=== PATIENT | female | born 1945 | race Hispanic/Latino ===

== ENCOUNTER 2022-05-26 10:26 | Inpatient (IN) | payer MEDICARE, OTHER ==
[2022-05-26] MEDS ORDERED: LACTATED RINGERS 500 ML IV ONE (11:43)
[2022-05-26] MEDS ORDERED: LIDOCAINE (1%) 10 MG/1 ML VIAL 20 ML MDV INFILTRATI ONE (11:43)
[2022-05-26] MEDS ORDERED: TETANUS,DIPH,PERTUSS(ACELL) VACCINE 0.5 ML SYRINGE IM ONE (11:46)
--- NOTE | 2022-05-26 11:46 | Emergency Department Report ---
ED General Adult HPI - General Chief complaint: Weakness Stated complaint: FALL/HEAD INJURY/WEAKNESS Time Seen by Provider: 05/26/22 11:42 Source: patient, family, EMS (Verbal report received from emergency medical services. EMS documentation not available at time of chart dictation ), RN notes reviewed Mode of arrival: Stretcher Limitations: Physical Limitation - History of Present Illness Initial comments: The patient was evaluated in the emergency department for symptoms described in the history of present illness. He/she was evaluated in the context of the global COVID-19 pandemic, which necessitated consideration that the patient might be at risk for infection with the virus that causes COVID-19. Institutional protocols and algorithms that pertain to the evaluation of patients at risk for COVID-19 are in a state of rapid change based on information released by regulatory bodies including the CDC and federal and state organizations. These policies and algorithms were followed during the patient's care in the emergency department. Please note that these policies, procedures and recommendations changed on a rapid basis. This is a 76-year-old female with a past medical history of hypothyroidism, currently on Synthroid, Depakote, and Risperdal. She presents to the ER today with a complaint of fall, and scalp laceration. She endorses generalized weakness for about the past week. As per son and family, patient has also been endorsing left lower quadrant abdominal pain. The patient denies focal extremity weakness and numbness. She has a mild headache. She has no neck pain. She has no chest pain. She has no vomiting or diarrhea. She denies loss of taste and smell. She is not COVID-19 vaccinated. EMS also verbally reports hypotension in the field, with a blood pressure in the 80s, which improved with IV fluids -: Sudden, days(s) Location: head, abdomen Severity scale (0 -10): 0 Consistency: intermittent Improves with: rest Worsens with: movement - Related Data Allergies Allergy/AdvReac Type Severity Reaction Status Date / Time carbamazepine [From Tegretol] Allergy Unknown Verified 05/26/22 10:46 clonazepam [From Klonopin] Allergy Unknown Verified 05/26/22 10:46 codeine AdvReac Nausea Verified 05/26/22 10:46 lithium AdvReac Nausea Verified 05/26/22 10:46 ED Review of Systems ROS: Stated complaint: FALL/HEAD INJURY/WEAKNESS Other details as noted in HPI Constitutional: malaise, weakness. denies: fever Eyes: denies: eye discharge ENT: denies: epistaxis Respiratory: denies: wheezing Cardiovascular: denies: chest pain Gastrointestinal: abdominal pain Genitourinary: denies: dysuria Musculoskeletal: back pain Skin: lesions Neurological: weakness Hematological/Lymphatic: denies: easy bleeding ED Physical Exam - General Limitations: Physical Limitation General appearance: alert (Patient is awake and alert to name and follows commands) - Head Head exam: Present: normocephalic. Absent: atraumatic (There is an occipital scalp laceration) - Eye Eye exam: Present: normal appearance, EOMI. Absent: nystagmus - ENT ENT exam: Present: normal exam, normal orophraynx, mucous membranes moist, normal external ear exam - Neck Neck exam: Present: normal inspection, full ROM. Absent: tenderness, meningismus - Respiratory Respiratory exam: Present: decreased breath sounds. Absent: respiratory distress, wheezes, rales, rhonchi, stridor - Cardiovascular Cardiovascular Exam: Present: regular rate, normal rhythm, normal heart sounds. Absent: bradycardia, tachycardia, irregular rhythm, systolic murmur, diastolic murmur, rubs, gallop - GI/Abdominal GI/Abdominal exam: Present: soft, other (Anterior abdominal scratch monique and ecchymosis noted). Absent: distended, tenderness, guarding, rebound, rigid, pulsatile mass - Rectal Rectal exam: Present: normal rectal tone (Chaperoned by Tamie Ryder, post acute care nurse practitioner). Absent: normal inspection (There is a gluteal ecchymosis noted), heme (-) stool - Extremities Exam Extremities exam: Present: normal inspection, full ROM, pedal edema (2+ edema in the bilateral lower extremities), other (2+ pulses noted in the bilateral upper and lower extremities. There is no palpable cord. negative Homans sign. Muscular compartments are soft. The pelvis is stable.). Absent: calf tenderness - Back Exam Back exam: Present: normal inspection. Absent: tenderness, CVA tenderness (R), CVA tenderness (L), paraspinal tenderness, vertebral tenderness - Neurological Exam Neurological exam: Present: alert, other (There is no facial droop. The tongue is midline. EOMI. 5 out of 5 strength in 4 extremities. Sensation is intact to light touch in 4 extremities) - Psychiatric Psychiatric exam: Present: flat affect - Skin Skin exam: Present: warm, dry, intact, normal color. Absent: rash ED Course Vital Signs 05/26/22 10:37 Temperature 97.6 F Pulse Rate 99 H Respiratory 16 Rate Blood Pressure 92/30 [Left] O2 Sat by Pulse 94 Oximetry - Reevaluation(s) Reevaluation #1: 05/26/22 13:50 Differential diagnosis, including but not limited to: Orthostasis, vagal event, structural cardiac disease, closed head injury, cervical spine injury, intra- abdominal infection, pneumonia, UTI, subacute stroke Assessment and plan: 76-year-old female with generalized weakness, fall, report of unsteady gait for a few days, with concomitant abdominal pain. Hypotensive in the field, now blood pressure is improving, currently [address] patient on cardiac surgeon. Obtain appropriate laboratory studies. Give tetanus vaccination, we will perform scalp laceration repair, obtain CT scan of the brain and cervical spine given advanced age, fall, closed head injury. Obtain CT scan of the abdomen pelvis. Obtain urinalysis. Reassess. I discussed the plan of care with both patient and her son, who are agreeable to the plan of care. 05/26/22 14:02 Patient is found to have acute renal insufficiency. Additional IV fluids ordered. Marrero catheter ordered. Change CT scan of the pelvis to noncontrast. 05/26/22 15:03 CT scan abdomen pelvis suggests perforated viscus. IV fluids ordered. Antibiotics ordered. Awaiting callback from general surgery. 05/26/22 15:59 Discussed all findings with patient and son with patient's permission. General surgery has evaluated the patient. Their recommendations are appreciated. All questions are answered. Patient and family agreeable to admission and hospitalization. Scalp laceration repaired. Patient tolerated procedure well. Awaiting callback from hospital physician to arrange admission 05/26/22 16:07 Dr. Rosales to admit patient to the medical service - Consultations Consultation #1: 05/26/22 15:59 Dr. Amanda has seen and examined the patient. Recommendations are reviewed and appreciated - Laceration /Wound Repair Right Posterior Head Wound Location: head Wound Length (cm): 2 Wound's Depth, Shape: linear, irregular Wound Explored: clean Irrigated w/ Saline (ccs): 500 Betadine Prep?: No Anesthesia: 1% Lidocaine Volume Anesthetic (ccs): 5 Progress: Scalp laceration is irrigated with sterile saline at adequate pressure. It is then anesthetized with approximately 5 cc of 1% lidocaine without epinephrine, with a 26-gauge needle. 6 interrupted shawn are then placed in the laceration, with good cosmesis, and approximation. The patient tolerated the procedure well. All questions answered. Patient and family articulated understanding ED Medical Decision Making - Lab Data Result diagrams: 05/26/22 12:51 05/26/22 12:51 Vital Signs 05/26/22 10:37 Temperature 97.6 F Pulse Rate 99 H Respiratory 16 Rate Blood Pressure 92/30 [Left] O2 Sat by Pulse 94 Oximetry Lab Results 05/26/22 05/26/22 05/26/22 Range/Units 12:51 12:51 12:51 WBC 8.9 (4.5-11.0) K/mm3 RBC 4.31 (3.65-5.03) M/mm3 Hgb 11.7 (10.1-14.3) gm/dl Hct 36.5 (30.3-42.9) % MCV 85 (79-97) fl MCH 27 L (28-32) pg MCHC 32 (30-34) % RDW 17.0 H (13.2-15.2) % Plt Count 390 (140-440) K/mm3 Seg Neutrophils % Associate Software Development Engineer PT 14.8 (12.2-14.9) Sec. INR 1.04 (0.87-1.13) Sodium 139 (137-145) mmol/L Potassium 4.0 (3.6-5.0) mmol/L Chloride 98.8 (98-107) mmol/L Carbon Dioxide 20 L (22-30) mmol/L Anion Gap 24 mmol/L BUN 72 H (7-17) mg/dL Creatinine 4.0 H (0.6-1.2) mg/dL Estimated GFR 11 ml/min BUN/Creatinine Ratio 18 % Glucose 87 (65-100) mg/dL Calcium 9.4 (8.4-10.2) mg/dL Phosphorus 4.70 H (2.5-4.5) mg/dL Magnesium 1.90 (1.7-2.3) mg/dL Total Bilirubin 0.50 (0.1-1.2) mg/dL AST 24 (5-40) units/L ALT 12 (7-56) units/L Alkaline Phosphatase 63 (35-129) units/L Total Creatine Kinase 262 H (30-135) units/L Troponin T < 0.010 (0.00-0.029) ng/mL NT-Pro-B Natriuret Pep (0-900) pg/mL Total Protein 6.7 (6.3-8.2) g/dL Albumin 2.9 L (3.9-5) g/dL Albumin/Globulin Ratio 0.8 % TSH (0.270-4.200) mlU/mL Valproic Acid (50-100) ug/mL 05/26/22 05/26/22 05/26/22 Range/Units 12:51 12:51 12:51 WBC (4.5-11.0) K/mm3 RBC (3.65-5.03) M/mm3 Hgb (10.1-14.3) gm/dl Hct (30.3-42.9) % MCV (79-97) fl MCH (28-32) pg MCHC (30-34) % RDW (13.2-15.2) % Plt Count (140-440) K/mm3 Seg Neutrophils % PT (12.2-14.9) Sec. INR (0.87-1.13) Sodium (137-145) mmol/L Potassium (3.6-5.0) mmol/L Chloride (98-107) mmol/L Carbon Dioxide (22-30) mmol/L Anion Gap mmol/L BUN (7-17) mg/dL Creatinine (0.6-1.2) mg/dL Estimated GFR ml/min BUN/Creatinine Ratio % Glucose (65-100) mg/dL Calcium (8.4-10.2) mg/dL Phosphorus (2.5-4.5) mg/dL Magnesium (1.7-2.3) mg/dL Total Bilirubin (0.1-1.2) mg/dL AST (5-40) units/L ALT (7-56) units/L Alkaline Phosphatase (35-129) units/L Total Creatine Kinase (30-135) units/L Troponin T (0.00-0.029) ng/mL NT-Pro-B Natriuret Pep 2054 H (0-900) pg/mL Total Protein (6.3-8.2) g/dL Albumin (3.9-5) g/dL Albumin/Globulin Ratio % TSH 2.890 (0.270-4.200) mlU/mL Valproic Acid 45.5 L (50-100) ug/mL - EKG Data -: EKG Interpreted by In EKG shows normal: sinus rhythm Rate: normal - EKG Data When compared to previous EKG there are: previous EKG unavailable 05/26/22 13:31 The EKG is interpreted at 11: 46 Sinus rhythm, rate 100 bpm. There is a normal axis, normal P wave axis, QTC 4 5 7 ms, and motion artifact. Borderline incomplete right bundle branch block. This is not a STEMI. Nonspecific T wave abnormality. Q waves noted in lead III. - Radiology Data Radiology results: pending, report reviewed, image reviewed CHEST 1 VIEW 05/26/2022 11:53 AM INDICATION / CLINICAL INFORMATION: Weakness. COMPARISON: None available. FINDINGS: SUPPORT DEVICES: None. HEART / MEDIASTINUM: No significant abnormality. LUNGS / PLEURA: The lungs are clear with elevation of the right hemidiaphragm. No significant pleural effusion. No pneumothorax. ADDITIONAL FINDINGS: No significant additional findings. IMPRESSION: 1. No acute abnormality of the chest. Signer Name: Francisco Hanley MD Signed: 05/26/2022 11:06 AM Workstation Name: [id number] CT cervical spine wo con INDICATION / CLINICAL INFORMATION: Fall, weakness, closed head injury...UNABLE TO GET EARRING OUT. TECHNIQUE: Axial, coronal and sagittal images All CT scans at this location are performed using CT dose reduction for ALARA by means of automated exposure control. COMPARISON: None available. FINDINGS: Diffuse osteopenia seen throughout. Occipital condyles appear normal. The facets are well aligned with degenerative change throughout. Small anterior posterior disc osteophytes throughout. No prevertebral soft tissue swelling. There is artifact within the odontoid on sagittal images. No definite soft tissue abnormality is seen IMPRESSION: 1. Degenerative changes seen throughout the spine. No acute fracture is definitely seen. Signer Name: Alden Vance MD Signed: 05/26/2022 1:44 PM Workstation Name: [id number] CT HEAD WITHOUT CONTRAST INDICATION / CLINICAL INFORMATION: Fall, weakness, closed head injury LAC TO BACK OF HEAD. TECHNIQUE: All CT scans at this location are performed using CT dose reduction for ALARA by means of automated exposure control. COMPARISON: None available. FINDINGS: Diffuse cerebral atrophy. There is no acute intracranial hemorrhage. Ventricles are normal in size without midline shift or mass effect. No extra-axial fluid collection is seen. Some low signal seen along the brainstem however this appears to be artifactual on axial images 9 and 10. The sinuses are clear. No skull fractures seen. No large hematoma along the posterior scalp ADDITIONAL FINDINGS: None. IMPRESSION: 1. No acute intracranial hemorrhage. 2. Diffuse cerebral atrophy with compensatory increase in ventricular size. Signer Name: Alden Vance MD Signed: 05/26/2022 1:38 PM Workstation Name: [id number] CT ABDOMEN AND PELVIS WITHOUT CONTRAST HISTORY: lower abd pain renal insufficiency LOW GFR WO CONTRAST. COMPARISON: None. TECHNIQUE: CT images of the abdomen and pelvis were obtained without administration of intravenous contrast. All CT scans at this location are performed using CT dose reduction for ALARA by means of automated exposure control. FINDINGS: Lungs/bones: Mild increased interstitial prominence and opacities are seen within the lower lungs right greater than left Abdomen/pelvis: There is free air in the upper abdomen with moderate fluid surrounding the liver multiple gallstones are seen throughout the gallbladder. Spleen, adrenal glands, pancreas appear normal. Kidneys are unremarkable. There is diffuse bowel wall irregularity within the region of the cecum and ascending colon with marked wall thickening. Areas of free air and gas along with inflammation surrounding the cecum is noted. Visualized portions of the appendix are unremarkable. There is a large left adnexal cysts measuring 5.8 cm. Degenerative change throughout spine IMPRESSION: 1. Marked thickening within the cecum, ascending colon and proximal transverse colon with surrounding inflammatory change. There is also free air within the right lower quadrant along with free air extending in the upper abdomen. Free fluid in the upper abdomen surrounding the liver with free air identified. Differential considerations would include colitis with bowel perforation, underlying malignancy cannot be excluded. Further workup and evaluation for bowel wall injury/perforation is recommended given free air. Diffuse inflammatory changes seen within the right abdomen 2. Cholelithiasis 3. Large left adnexal cyst CRITICAL RESULT: Time of Discovery (PIZZ[employer] TEAM MEMBER/CDT): 200 Time of Communication (PIZZA [employer] TEAM MEMBER/CDT): 200 Licensed Practitioner Receiving Report: [place] Read-Back Performed: Yes. Signer Name: Alden Vance MD Signed: 05/26/2022 2:01 PM Workstation Name: [id number] Critical Care Time: Yes Critical care time in (mins) excluding proc time.: 35 Critical care attestation.: If time is entered above; I have spent that time in minutes in the direct care of this critically ill patient, excluding procedure time. ED Disposition Clinical Impression: Fall, Scalp laceration, Abdominal pain, Closed head injury, Hypotension, Perforated abdominal viscus, Acute renal insufficiency Disposition: 09 ADMITTED INPATIENT Is pt being admited?: Yes Does the pt Need Aspirin: No Condition: Serious Referrals: JAQUAN ZARAGOZA MD [Primary Care Provider] - 3-5 Days
[2022-05-26] MEDS ORDERED: SODIUM CHLORIDE 0.9% IRR 500 ML BOTTLE IR ONE (11:54)
--- NOTE | 2022-05-26 12:10 | XRay Report ---
CHEST 1 VIEW 05/26/2022 11:53 AM INDICATION / CLINICAL INFORMATION: Weakness. COMPARISON: None available. FINDINGS: SUPPORT DEVICES: None. HEART / MEDIASTINUM: No significant abnormality. LUNGS / PLEURA: The lungs are clear with elevation of the right hemidiaphragm. No significant pleural effusion. No pneumothorax. ADDITIONAL FINDINGS: No significant additional findings. IMPRESSION: 1. No acute abnormality of the chest. Signer Name: Francisco Hanley MD Signed: 05/26/2022 12:06 PM Workstation Name: [id number]
[2022-05-26 13:38] LABS: Hematocrit 36.5 % (30.3-42.9); Hemoglobin 11.7 gm/dl (10.1-14.3); Mean Corpuscular HGB Conc 32 % (30-34); Mean Corpuscular Volume 85 fl (79-97); Platelet Count 390 K/mm3 (140-440); Red Blood Count 4.31 M/mm3 (3.65-5.03)
[2022-05-26 13:48] LABS: INR 1.04 (0.87-1.13)
[2022-05-26 13:52] LABS: Alanine Aminotransferase 12 units/L (7-56); Albumin 2.9 g/dL (3.9-5); Blood Urea Nitrogen 72 mg/dL (7-17); Calcium 9.4 mg/dL (8.4-10.2); Hemolysis Index 0
[2022-05-26 13:55] LABS: BUN/Creatinine Ratio 18
[2022-05-26] MEDS ORDERED: SODIUM CHLORIDE 0.9% 500 ML 500 ML IV ONE (14:02)
--- NOTE | 2022-05-26 14:42 | Cat Scan Report ---
CT HEAD WITHOUT CONTRAST INDICATION / CLINICAL INFORMATION: Fall, weakness, closed head injury LAC TO BACK OF HEAD. TECHNIQUE: All CT scans at this location are performed using CT dose reduction for ALARA by means of automated e xposure control. COMPARISON: None available. FINDINGS: Diffuse cerebral atrophy. There is no acute intracranial hemorrhage. Ventricles are normal in size wi thout midline shift or mass effect. No extra-axial fluid collection is seen. Some low signal seen reuben ng the brainstem however this appears to be artifactual on axial images 9 and 10. The sinuses are haven ar. No skull fractures seen. No large hematoma along the posterior scalp ADDITIONAL FINDINGS: None. IMPRESSION: 1. No acute intracranial hemorrhage. 2. Diffuse cerebral atrophy with compensatory increase in ventricular size. Signer Name: Alden Vance MD Signed: 05/26/2022 2:38 PM Workstation Name: [id number]
--- NOTE | 2022-05-26 14:48 | Cat Scan Report ---
CT cervical spine wo con INDICATION / CLINICAL INFORMATION: Fall, weakness, closed head injury...UNABLE TO GET EARRING OUT. TECHNIQUE: Axial, coronal and sagittal images All CT scans at this location are performed using CT dose reductio n for ALARA by means of automated exposure control. COMPARISON: None available. FINDINGS: Diffuse osteopenia seen throughout. Occipital condyles appear normal. The facets are well aligned wit h degenerative change throughout. Small anterior posterior disc osteophytes throughout. No prevertebr al soft tissue swelling. There is artifact within the odontoid on sagittal images. No definite soft t issue abnormality is seen IMPRESSION: 1. Degenerative changes seen throughout the spine. No acute fracture is definitely seen. Signer Name: Alden Vance MD Signed: 05/26/2022 2:44 PM Workstation Name: [id number]
[2022-05-26 15:02] LABS: Band Neutrophils # (Manual) 0.3 K/mm3; Eosinophils % (Manual) 0 % (0.0-4.3); Total Cells Counted 100
[2022-05-26] MEDS ORDERED: SODIUM CHLORIDE 0.9% 1000 ML 2,000 ML IV ONE (15:02)
[2022-05-26] MEDS ORDERED: metroNIDAZOLE/NS 500 MG/100 ML 500 MG/100 ML BAG IV ONE (15:02)
[2022-05-26] MEDS ORDERED: PIPERACILLIN/TAZOBACTAM 3.375 3.375 GM/50 ML BAG IV ONE ×2 (15:02→18:00)
[2022-05-26 15:03] LABS: Burr Cells 1+; Platelet Estimate Consistent w Auto
--- NOTE | 2022-05-26 15:06 | Cat Scan Report ---
CT ABDOMEN AND PELVIS WITHOUT CONTRAST HISTORY: lower abd pain renal insufficiency LOW GFR WO CONTRAST. COMPARISON: None. TECHNIQUE: CT images of the abdomen and pelvis were obtained without administration of intravenous co ntrast. All CT scans at this location are performed using CT dose reduction for ALARA by means of au tomated exposure control. FINDINGS: Lungs/bones: Mild increased interstitial prominence and opacities are seen within the lower lungs ri ght greater than left Abdomen/pelvis: There is free air in the upper abdomen with moderate fluid surrounding the liver mul tiple gallstones are seen throughout the gallbladder. Spleen, adrenal glands, pancreas appear normal. Kidneys are unremarkable. There is diffuse bowel wall irregularity within the region of the cecum an d ascending colon with marked wall thickening. Areas of free air and gas along with inflammation surr ounding the cecum is noted. Visualized portions of the appendix are unremarkable. There is a large left adnexal cysts measuring 5.8 cm. Degenerative change throughout spine IMPRESSION: 1. Marked thickening within the cecum, ascending colon and proximal transverse colon with surrounding inflammatory change. There is also free air within the right lower quadrant along with free air exte nding in the upper abdomen. Free fluid in the upper abdomen surrounding the liver with free air ident ified. Differential considerations would include colitis with bowel perforation, underlying malignanc y cannot be excluded. Further workup and evaluation for bowel wall injury/perforation is recommended given free air. Diffuse inflammatory changes seen within the right abdomen 2. Cholelithiasis 3. Large left adnexal cyst CRITICAL RESULT: Time of Discovery (REAL ESTATE AGENCY LICENSEE/CDT): 200 Time of Communication (REAL ESTATE AGENCY LICENSEE/CDT): 200 Licensed Practitioner Receiving Report: [place] Read-Back Performed: Yes. Signer Name: Alden Vance MD Signed: 05/26/2022 3:01 PM Workstation Name: [id number]
--- NOTE | 2022-05-26 16:03 | Consultation ---
History of Present Illness Consult date: 05/26/22 Reason for consult: abdominal pain - History of present illness History of present illness: 76 year old female presents to the ER s/p fall. She had a had a head laceration and had a CT head and abdomen because she has also been complaining of abdominal pain for the last 1-2 weeks. She says she has never had this pain before and it got progressively worse. She has been taking over the counter pain meds. She says she had several bowel movements yesterday but denies any blood. She says she has never had a colonoscopy and is unaware of having an issue with her colon before. Her CT a/p showed free air with inflamed thickened right colon to proximal transverse colon. There was free air and fluid around the colon and seen around the liver. Past History Past Medical History: hypothyroidism, other (psychiatric disorders) Past Surgical History: No surgical history Medications and Allergies Allergies Allergy/AdvReac Type Severity Reaction Status Date / Time carbamazepine [From Tegretol] Allergy Unknown Verified 05/26/22 10:46 clonazepam [From Klonopin] Allergy Unknown Verified 05/26/22 10:46 codeine AdvReac Nausea Verified 05/26/22 10:46 lithium AdvReac Nausea Verified 05/26/22 10:46 Review of Systems All systems: negative - Constitutional poor appetite - Gastrointestinal abdominal pain, no nausea, no vomiting Exam Vital Signs Temp Pulse Resp BP Pulse Ox 97.6 F 99 H 16 92/30 94 05/26/22 10:37 05/26/22 10:37 05/26/22 10:37 05/26/22 10:37 05/26/22 10:37 - General physical appearance Positive: well developed, no distress, moderate distress - ENT Positive: poor alf - Respiratory Positive: normal expansion, normal respiratory effort - Cardiovascular Heart Sounds: Present: S1 & S2 - Extremities Extremity abnormal: edema - Abdomen Abdomen: Present: soft, tender, other (several small patches of echymosis). Absent: distended, guarding, rigid - Neurologic Neurologic: alert and oriented to time, place and person, CN II-XII intact - Psychiatric Psychiatric: appropriate mood/affect, cooperative Results - Labs 05/26/22 12:51 05/26/22 12:51 Abnormal lab results 07/09/22 07/09/22 07/09/22 Range/Units 12:51 12:51 12:51 MCH 27 L (28-32) pg RDW 17.0 H (13.2-15.2) % Seg Neuts % (Manual) 91.0 H (40.0-70.0) % Lymphocytes % (Manual) 2.0 L (13.4-35.0) % Seg Neutrophils # Man 8.1 H (1.8-7.7) K/mm3 Lymphocytes # (Manual) 0.2 L (1.2-5.4) K/mm3 Carbon Dioxide 20 L (22-30) mmol/L BUN 72 H (7-17) mg/dL Creatinine 4.0 H (0.6-1.2) mg/dL Phosphorus 4.70 H (2.5-4.5) mg/dL Ammonia (25-60) umol/L Total Creatine Kinase 262 H (30-135) units/L NT-Pro-B Natriuret Pep 2054 H (0-900) pg/mL Albumin 2.9 L (3.9-5) g/dL Valproic Acid (50-100) ug/mL 05/26/22 05/26/22 Range/Units 12:51 12:51 MCH (28-32) pg RDW (13.2-15.2) % Seg Neuts % (Manual) (40.0-70.0) % Lymphocytes % (Manual) (13.4-35.0) % Seg Neutrophils # Man (1.8-7.7) K/mm3 Lymphocytes # (Manual) (1.2-5.4) K/mm3 Carbon Dioxide (22-30) mmol/L BUN (7-17) mg/dL Creatinine (0.6-1.2) mg/dL Phosphorus (2.5-4.5) mg/dL Ammonia 19.0 L (25-60) umol/L Total Creatine Kinase (30-135) units/L NT-Pro-B Natriuret Pep (0-900) pg/mL Albumin (3.9-5) g/dL Valproic Acid 45.5 L (50-100) ug/mL Diabetes panel 05/26/22 Range/Units 12:51 Sodium 139 (137-145) mmol/L Potassium 4.0 (3.6-5.0) mmol/L Chloride 98.8 (98-107) mmol/L Carbon Dioxide 20 L (22-30) mmol/L BUN 72 H (7-17) mg/dL Creatinine 4.0 H (0.6-1.2) mg/dL Glucose 87 (65-100) mg/dL Calcium 9.4 (8.4-10.2) mg/dL AST 24 (5-40) units/L ALT 12 (7-56) units/L Alkaline Phosphatase 63 (35-129) units/L Total Protein 6.7 (6.3-8.2) g/dL Albumin 2.9 L (3.9-5) g/dL Thyroid panel 05/26/22 Range/Units 12:51 TSH 2.890 (0.270-4.200) mlU/mL Calcium panel 05/26/22 Range/Units 12:51 Calcium 9.4 (8.4-10.2) mg/dL Phosphorus 4.70 H (2.5-4.5) mg/dL Albumin 2.9 L (3.9-5) g/dL Pituitary panel 05/26/22 05/26/22 Range/Units 12:51 12:51 Sodium 139 (137-145) mmol/L Potassium 4.0 (3.6-5.0) mmol/L Chloride 98.8 (98-107) mmol/L Carbon Dioxide 20 L (22-30) mmol/L BUN 72 H (7-17) mg/dL Creatinine 4.0 H (0.6-1.2) mg/dL Glucose 87 (65-100) mg/dL Calcium 9.4 (8.4-10.2) mg/dL TSH 2.890 (0.270-4.200) mlU/mL Adrenal panel 05/26/22 Range/Units 12:51 Sodium 139 (137-145) mmol/L Potassium 4.0 (3.6-5.0) mmol/L Chloride 98.8 (98-107) mmol/L Carbon Dioxide 20 L (22-30) mmol/L BUN 72 H (7-17) mg/dL Creatinine 4.0 H (0.6-1.2) mg/dL Glucose 87 (65-100) mg/dL Calcium 9.4 (8.4-10.2) mg/dL Total Bilirubin 0.50 (0.1-1.2) mg/dL AST 24 (5-40) units/L ALT 12 (7-56) units/L Alkaline Phosphatase 63 (35-129) units/L Total Protein 6.7 (6.3-8.2) g/dL Albumin 2.9 L (3.9-5) g/dL - Imaging CT scan - abdomen: report reviewed, image reviewed CT scan - pelvis: report reviewed, image reviewed Assessment and Plan 76 year old female with perforated viscous. Based on CT likely source right colon. Pt is afebrile and stable. Spoke with pt and her son at length about pathology, treatment options, and management course. They expressed understanding. Patient signed informed consent for respiratory laparotomy. Patient is being to the hospitalist service, surgery to continue consultative service while admitted. Patient has renal insufficiency recommend hydration and management per primary or specialist.
--- NOTE | 2022-05-26 16:08 | History and Physical Report ---
History of Present Illness Chief complaint: I feel weak, and I fell down History of present illness: 76 YO Female with Vascular Dementia, Cerebral Atherosclerosis, Debility, Hypothyroidism presents to ED for evaluation. Patient has diminished cognition and provides minimal history. Patient reports "I feel weak and I fell down". Patient son is at bedside and provides additional history. Patient son reports that patient has also experienced generalized weakness over the past 1 week with worsening symptoms over the past 2 days. Patient also complained of lower abdominal pain over the past 3 days. Patient was ambulating today and experienced a fall from a standing position landing against a wall and sustaini ng a laceration to area. EMS was notified and upon arrival the patient was found to be in distress and subsequent transported to [facility] for further care and evaluation of the aforementioned symptoms. The patient was seen and evaluated emergency department. All lab and imaging studies reviewed. Patient found to have a systolic blood pressure in the 90s. Patient found to have systemic inflammatory response syndrome, metabolic acidosis, acute kidney injury, diastolic CHF, as well as perforated viscus, colitis. Surgery team consulted in ED. Patient taken urgently to operating room for surgical intervention. No reports of fever, chills, chest pain, palpitation, productive cough, skin rash, recent contact, known exposure to COVID-19. No prior admission for review. No medication listed at time of admission for reconciliation. Advanced care planning conducted in ED. Past History Past Medical History: hypothyroidism, other (See HPI) Past Surgical History: No surgical history, Other (Reviewed) Social history: . denies: smoking, alcohol abuse, prescription drug abuse Family history: no significant family history, other (Reviewed) Medications and Allergies Allergies Allergy/AdvReac Type Severity Reaction Status Date / Time carbamazepine [From Tegretol] Allergy Unknown Verified 05/26/22 16:33 clonazepam [From Klonopin] Allergy Unknown Verified 05/26/22 16:33 codeine AdvReac Nausea Verified 05/26/22 16:33 lithium AdvReac Nausea Verified 05/26/22 16:33 Review of Systems ROS unobtainable: due to mental status Exam - Constitutional Vitals: Temp Pulse Resp BP Pulse Ox 97.6 F 99 H 16 92/30 94 05/26/22 10:37 05/26/22 10:37 05/26/22 10:37 05/26/22 10:37 05/26/22 10:37 General appearance: Present: mild distress - EENT Eyes: Present: PERRL ENT: hearing intact, clear oral mucosa - Neck Neck: Present: supple, normal ROM - Respiratory Respiratory effort: normal Respiratory: bilateral: CTA - Cardiovascular Heart Sounds: Present: S1 & S2. Absent: rub, click - Extremities Extremities: pulses symmetrical, No edema Peripheral Pulses: within normal limits - Abdominal General gastrointestinal: Present: soft, tender, non-distended, normal bowel sounds Localized gastrointestinal: tender: diffuse Female genitourinary: Present: normal - Integumentary Integumentary: Present: clear, warm, dry - Musculoskeletal Musculoskeletal: generalized weakness - Psychiatric Psychiatric: no appropriate mood/affect, no intact judgment & insight - Neurologic Neurologic: CNII-XII intact, moves all extremities, no gait normal HEART Score - HEART Score Troponin: Troponin T < 0.010 ng/mL (0.00-0.029) 05/26/22 12:51 Results - Labs CBC & Chem 7: 05/26/22 12:51 05/26/22 12:51 Labs: Abnormal lab results 05/26/22 05/26/22 05/26/22 Range/Units 12:51 12:51 12:51 MCH 27 L (28-32) pg RDW 17.0 H (13.2-15.2) % Seg Neuts % (Manual) 91.0 H (40.0-70.0) % Lymphocytes % (Manual) 2.0 L (13.4-35.0) % Seg Neutrophils # Man 8.1 H (1.8-7.7) K/mm3 Lymphocytes # (Manual) 0.2 L (1.2-5.4) K/mm3 Carbon Dioxide 20 L (22-30) mmol/L BUN 72 H (7-17) mg/dL Creatinine 4.0 H (0.6-1.2) mg/dL Phosphorus 4.70 H (2.5-4.5) mg/dL Ammonia (25-60) umol/L Total Creatine Kinase 262 H (30-135) units/L NT-Pro-B Natriuret Pep 2054 H (0-900) pg/mL Albumin 2.9 L (3.9-5) g/dL Valproic Acid (50-100) ug/mL 05/26/22 05/26/22 Range/Units 12:51 12:51 MCH (28-32) pg RDW (13.2-15.2) % Seg Neuts % (Manual) (40.0-70.0) % Lymphocytes % (Manual) (13.4-35.0) % Seg Neutrophils # Man (1.8-7.7) K/mm3 Lymphocytes # (Manual) (1.2-5.4) K/mm3 Carbon Dioxide (22-30) mmol/L BUN (7-17) mg/dL Creatinine (0.6-1.2) mg/dL Phosphorus (2.5-4.5) mg/dL Ammonia 19.0 L (25-60) umol/L Total Creatine Kinase (30-135) units/L NT-Pro-B Natriuret Pep (0-900) pg/mL Albumin (3.9-5) g/dL Valproic Acid 45.5 L (50-100) ug/mL Assessment and Plan - Patient Problems (1) Perforated abdominal viscus Current Visit: Yes Status: Acute Plan to address problem: CT scan abdomen pelvis, serial abdominal exam, n.p.o., IV fluid resuscitation therapy, surgical team consulted in ED. Patient pending surgical intervention. (2) Systemic inflammatory response syndrome Current Visit: Yes Status: Acute Plan to address problem: IV for resuscitation therapy, IV antibiotic therapy, chest x-ray, urinalysis, (3) TYRESE (acute kidney injury) Current Visit: Yes Status: Acute Plan to address problem: IV fluid resuscitation therapy, BMP, repeat BMP in a.m. to monitor serum creatinine as well as GFR. (4) Acidosis Current Visit: Yes Status: Acute Plan to address problem: IV fluid resuscitation therapy, supportive care. Repeat BMP in AM. (5) CHF (congestive heart failure) Current Visit: Yes Status: Acute Qualifiers: Heart failure type: diastolic Heart failure chronicity: acute Qualified Code(s): I50.31 - Acute diastolic (congestive) heart failure Plan to address problem: Straight I/O, April, blood pressure control, echocardiogram ordered and pending at time of admission. BNP. (6) Colitis Current Visit: Yes Status: Acute Plan to address problem: CT scan abdomen pelvis, serial abdominal exam, IV antibiotic therapy, supportive care. NPO. (7) Scalp laceration Current Visit: Yes Status: Acute Qualifiers: Encounter type: initial encounter Qualified Code(s): S01.01XA - Laceration without foreign body of scalp, initial encounter Plan to address problem: Laceration. Emergency department. (8) DVT prophylaxis Current Visit: Yes Status: Acute Plan to address problem: SCD to bilateral lower extremities while in bed (9) Advance care planning Current Visit: Yes Status: Acute Plan to address problem: Disease education data, care plan discussed, diagnoses discussed, prognosis disc ussed, patient is full code. Patient family acknowledged understanding and agreement with care plan, +30 minutes. (10) Preventative health care Current Visit: Yes Status: Acute Plan to address problem: Patient family counseled regarding fall precautions, home safety, gait training, standby assistance with transfers, outpatient follow-up with primary care physician for all age and risk factor appropriate screening test. +30 minutes.
[2022-05-26] MEDS ORDERED: HYDROmorphone 0.5 MG/0.5 ML INJ IV PRN ×2 (16:11→16:14)
[2022-05-26] MEDS ORDERED: MORPHINE 2 MG/1 ML INJ IV PRN (16:11)
[2022-05-26] MEDS ORDERED: ACETAMINOPHEN 650 MG RECT SUPP PR PRN ×2 (16:11→16:16)
[2022-05-26] MEDS ORDERED: oxyCODONE /ACETAMINOPHEN 5-325MG TAB PO PRN (16:16)
[2022-05-26] MEDS ORDERED: MORPHINE 4 MG/1 ML INJ IV PRN (16:16)
[2022-05-26] MEDS ORDERED: CEFEPIME/NS 2 GM/100 ML 2 GM/100 ML BAG IV SCH (17:00)
[2022-05-26] MEDS ORDERED: CEFEPIME/NS 1 GM/100 ML 1 GM/100 ML BAG IV SCH (17:00)
[2022-05-26] MEDS ORDERED: HYDROmorphone 1 MG/1 ML INJ ONE (17:04)
[2022-05-26] MEDS ORDERED: ROCURONIUM 50 MG/5 ML INJ IV ONE (17:04)
[2022-05-26] MEDS ORDERED: LIDOCAINE MPF (2%) 20 MG/1 ML VIAL 5 ML ONE (17:04)
[2022-05-26] MEDS ORDERED: propofoL 200 MG/20 ML VIAL IV ONE (17:04)
--- NOTE | 2022-05-26 17:15 | Anesthesia Day of Surgery ---
Anesthesia Day of Surgery - Day of Surgery Patient Examined: Yes Patient H&P Reviewed: Yes Patient is NPO: Yes
--- NOTE | 2022-05-26 17:15 | Anesthesia Consultation ---
Anesthesia Consult and Med Hx Date of service: 05/26/22 - Airway Anesthetic Teeth Evaluation: Poor (several missing but no loose teeth), Chipped ROM Head & Neck: Adequate Mental/Hyoid Distance: Adequate Mallampati Class: Class II Intubation Access Assessment: Probably Good - Pulmonary Exam CTA: Yes - Cardiac Exam Cardiac Exam: RRR - Pre-Operative Health Status ASA Pre-Surgery Classification: ASA3, Emergency Proposed Anesthetic Plan: General - Pulmonary Hx Smoking: No Hx Asthma: No Hx Sleep Apnea: No - Cardiovascular System Hx Hypertension: No Hx Coronary Artery Disease: No - Central Nervous System Hx Seizures: No CVA: No Hx Psychiatric Problems: Yes (Manic depressive disorder, schizophrenia) - Gastrointestinal Hx Gastroesophageal Reflux Disease: No - Endocrine Hx Renal Disease: Yes (TYRESE ) Hx Liver Disease: No Hx Non-Insulin Dependent Diabetes: No Hx Hypothyroidism: Yes - Hematic Hx Anemia: No Hx Sickle Cell Disease: No - Other Systems Hx Alcohol Use: No Hx Substance Use: No Hx Cancer: No Hx Obesity: No - Additional Comments Anesthesia Medical History Comments: No hx of anesthetic complications
[2022-05-26] MEDS ORDERED: ePHEDrine SULFATE 50 MG/1 ML INJ ONE (17:48)
[2022-05-26] MEDS ORDERED: LACTATED RINGERS 1,000 ML ONE ×4 (18:17→23:22)
[2022-05-26] MEDS ORDERED: ONDANSETRON 4 MG/2 ML INJ ONE (18:17)
[2022-05-26] MEDS ORDERED: PHENYLEPHRINE/NS 1,000 MCG/10 ML SYRINGE (OR USE) IV ONE (18:17)
[2022-05-26] MEDS ORDERED: dexAMETHasone 20 MG/5 ML VIAL ONE (18:17)
[2022-05-26] MEDS ORDERED: SODIUM CHLORIDE 0.9% IRR 1,500 ML BOTTLE IR ONE (20:00)
[2022-05-26] MEDS ORDERED: GLYCOPYRROLATE 0.4 MG/2 ML INJ ONE (20:38)
[2022-05-26] MEDS ORDERED: NEOSTIGMINE 10MG/10 ML INJ MDV ONE (20:38)
[2022-05-26] MEDS ORDERED: ESMOLOL 100 MG/10 ML INJ IV ONE (20:50)
--- NOTE | 2022-05-26 21:04 | Operative Report ---
Operative Report Operative Report: Date: May 26, 2022 Surgeon: Jack Amanda MD Defensive Line Coach Surgeon: Travon Stafford MD Pre-op diagnosis: Perforated viscus Postop diagnosis: Perforated colon mass Procedure:1. Exploratory laparotomy, 2. Extended right hemicolectomy, 3. Ileocolic anastomosis, 4. Drain placement Anesthesia:GETA Indication: Patient is a 76-year-old female who presented to the emergency room status post fall. Patient was noted to have a laceration on her head and was complaining of some abdominal pain for least a week. On her abdominal CT there was noted to be free air and fluid fluid with inflammation and wall thickening of her right colon extending into the proximal transverse colon. It was thought to be a perforation of her colon in that area. Patient was consented. Details of procedure: Patient was brought into the OR suite and laid in supine position. Bilateral lower extremity SCDs were placed. General anesthesia was induced via successful endotracheal tube intubation. A Marrero catheter was inserted under sterile conditions. Patient's abdomen was prepped and draped with her arms tucked at her side. After a timeout was performed a vertical midline incision was made with a 10 blade scalpel. Electrocautery was then used to dissect down to the subcutaneous tissue through the fascia. The peritoneum was incised. Under direct visualization the peritoneum and fascia was extended enough to eviscerate her bowel. There was immediately noticed to be a hard mass with a small leaking perforation in the proximal transverse colon at the hepatic flexure. There was also noted to be a significant amount of purulent and murky fluid from the right upper quadrant that was suctioned and a sample sent off to pathology for culture. It was immediately noted that this colonic mass was tightly adhesed to the underside of the antrum of the stomach anteriorly, into the mesentery of small bowel posteriorly. Great care was taken to peel the tumor colon away from the surrounding structures with minimal injury. Once it was completely from surrounding structures the stomach, pancreas, and duodenum were inspected and found to be intact. There was noted to be perforation posteriorly that was walled off by the mesentery of the small bowel. The ileum was transected approximately 10 cm from the terminal ileum with a BOLA stapler. The mesentery was taken with an Ensure device up to the distal boundary which is approximately 4 to 5 cm distal to the colonic mass. The distal segment of colon was also transected with a BOLA. The specimen was then sent off the table. The remaining proximal colon was inspected and found to be pink and viable consistent with sparing its vascular inflow. The distal ileum was then brought up easily without tension and laid next to the remaining proximal transverse colon. 2 stay sutures using 2-0 silk were used to approximate the ends. After anatomies were made BOLA was used to do a [id number] stapled anastomosis. The common enterotomy was closed with a TA stapler. The mesenteric defect was closed with a 2-0 silk. The abdominal cavity was irrigated with warm saline making great care to clean out the right upper quadrant that had a lot of purulent and fibrinous exudate. A 19 Turkish brown drain was placed into the right upper quadrant as well. Feeling that hemostasis was secure, the midline fascia was then reapproximated using double- stranded 0 PDS. The skin was then closed with shawn followed by sterile dressing. Patient was awoken, extubated and taken to recovery in stable condition. Specimen: Peritoneal fluid for culture, and right colon Complications: None immediate EBL: About 100 mL
[2022-05-26] MEDS ORDERED: AMIODARONE 150 MG/3 ML INJ IV ONE (21:35)
[2022-05-26] MEDS ORDERED: PHENYLEPHRINE 10 MG/1 ML INJ SDV ONE (22:04)
[2022-05-26] MEDS ORDERED: SODIUM CHLORIDE 0.9% 100 ML ONE (22:05)
--- NOTE | 2022-05-26 22:38 | Event Note ---
Date: 05/26/22 Called to see 76-year-old female status post hemicolectomy for perforated abdominal viscus went into A. fib RVR status post surgery. Patient has no known history of A. fib. Surgery was said to have gone smoothly and there was minimal loss of blood. Patient was seen by the bedside in the PACU in A. fib RVR also hypotensive. She had been started on IV fluid and also amiodarone drip. Recommendations: Continue amiodarone drip and IV fluid Consult to be placed to cardiology for further recommendations. We will schedule patient for echocardiogram. Consider placing patient on pressorpreferably Anup- Synephrine Will recommend patient be placed in ICU for close monitoring. We will continue to follow patient.
[2022-05-26] MEDS ORDERED: VASOPRESSIN 20 UNIT/1 ML INJ ONE (23:01)
--- NOTE | 2022-05-26 23:19 | Event Note ---
Date: 05/26/22 Upon arrival to PACU patient converted into new onset Afib with RVR. EKG obtained. Amiodarine 150 mg bolus given, followed by a continuous infusion at 1mg/min. SBP in the 80s so a phenylephrine infusion was also started. Notified Dr. Louis who assessed patient at bedside and ordered a cardiology consult. P[employer]M MAKER updated Dr. Youngblood. He agreed with current infusions. Vitals improved with current medication. Patient is awaiting transfer to ICU.
--- NOTE | 2022-05-26 23:19 | Post Anesthesia Evaluation ---
- Post Anesthesia Evaluation Patient Participated: Yes Airway Patent: Yes Stable Respiratory Function: Yes Nausea/Vomiting: No Temp > 96.8F: Yes Pain Manageable: Yes Adequeate Hydration: Yes Anesthesia Complications: No Block Receding Appropriately: Not Applicable Patient on Ventilator: No Other Comments: Patient stable for transfer to ICU.
[2022-05-26] MEDS: AMIODARONE 900 MG in DEXTROSE 5% IN WATER 482 ML IV SCH (23:44)
[2022-05-26] MEDS: PHENYLEPHRINE 100 MG in SODIUM CHLORIDE 0.9% 90 ML IV SCH (23:45)
[2022-05-27] MEDS: D5W/0.45% NACL 1,000 ML IV SCH ×3 (00:13→20:07)
[2022-05-27] MEDS: ACETAMINOPHEN IV 1,000 MG/100 ML BOTTLE IV SCH ×4 (00:49→21:54)
[2022-05-27 02:22] LABS: Bilirubin,Urine NEG (Negative); Blood,Urine SM (Negative); Color,Urine Yellow (Yellow); Protein,Urine <15 mg/dL mg/dL (Negative); Urobilinogen,Urine < 2.0 mg/dL (<2.0)
[2022-05-27 02:41] LABS: Bacteria,Urine 1+ /HPF (Negative); Mucus,Urine FEW /HPF
[2022-05-27] MEDS: PHENYLEPHRINE 100 MG in SODIUM CHLORIDE 0.9% 90 ML IV SCH (02:55)
[2022-05-27 07:09] LABS: Hematocrit 35.2 % (30.3-42.9); Hemoglobin 11.2 gm/dl (10.1-14.3); Mean Corpuscular HGB Conc 32 % (30-34); Mean Corpuscular Volume 85 fl (79-97); Platelet Count 485 K/mm3 (140-440); Red Blood Count 4.14 M/mm3 (3.65-5.03); Red Cell Distribution Width 16.9 % (13.2-15.2)
[2022-05-27 07:44] LABS: Albumin 1.9 g/dL (3.9-5)
[2022-05-27] MEDS ORDERED: MAGNESIUM SULFATE 2 GM/50 ML BAG IV ONE (08:14)
--- NOTE | 2022-05-27 10:42 | Consultation ---
History of Present Illness Consult date: 05/27/22 Requesting physician: JAMES CORREA Consult reason: atrial fibrillation History of present illness: 76-year-old female with vascular dementia history obtained by the son who also has mental illness. Denies any hypertension diabetes cholesterol does some basic household activities. But for the last 1 week having abdominal pain with some loose stools. But still eating. Came to the hospital after a fall. CT of the abdomen showed free air because of 1 week of abdominal pain. Patient was taken to surgery. And postoperatively went to A. fib. Patient is on IV amiodarone drip controlled rate. N.p.o. post surgery. As per the son denies any fever chills nausea or vomiting. Past History Past Medical History: hypothyroidism, other (See HPI mental illness) Past Surgical History: No surgical history, Other (Reviewed) Social history: . denies: smoking, alcohol abuse, prescription drug abuse Family history: no significant family history, other (Reviewed) Medications and Allergies Allergies Allergy/AdvReac Type Severity Reaction Status Date / Time carbamazepine [From Tegretol] Allergy Unknown Verified 05/26/22 16:33 clonazepam [From Klonopin] Allergy Unknown Verified 05/26/22 16:33 codeine AdvReac Nausea Verified 05/26/22 16:33 lithium AdvReac Nausea Verified 05/26/22 16:33 Active Meds: Active Medications Acetaminophen (Acetaminophen 650 Mg Rect Supp) 650 mg HI Q6H PRN PRN Reason: Pain MILD(1-3)/Fever >100.5/GE Hydromorphone HCl (Hydromorphone 0.5 Mg/0.5 Ml Inj) 0.5 mg IV Q3H PRN PRN Reason: Pain , Severe (7-10) Cefepime HCl (Cefepime/Ns 1 Gm/100 Ml) 1 gm in 100 mls @ 200 mls/hr IV Q24H ROLANDO Amiodarone HCl 900 mg/ (Dextrose) 500 mls @ 33.333 mls/hr IV DIRECT ROLANDO; Protocol Last Titration: 05/27/22 03:25 Dose: 0.5 mg/min, 16.667 mls/hr Phenylephrine HCl 100 mg/ (Sodium Chloride) 100 mls @ 3 mls/hr IV TITR ROLANDO; Protocol Last Titration: 05/27/22 08:45 Dose: 0 mcg/min, 0 mls/hr Acetaminophen (Acetaminophen Iv) 1,000 mg in 100 mls @ 400 mls/hr IV Q6HR [facility] Stop: 05/27/22 18:14 Last Admin: 05/27/22 05:03 Dose: 400 mls/hr Dextrose/Sodium Chloride (D5/0.45ns) 1,000 mls @ 125 mls/hr IV DIRECT ROLANDO Last Admin: 05/27/22 08:24 Dose: 125 mls/hr Morphine Sulfate (Morphine 2 Mg/1 Ml Inj) 2 mg IV Q4H PRN PRN Reason: Pain, Moderate (4-6) Morphine Sulfate (Morphine 4 Mg/1 Ml Inj) 4 mg IV Q4H PRN PRN Reason: Pain , Severe (7-10) Oxycodone/Acetaminophen (Oxycodone /Acetaminophen 5-325mg Tab) 1 tab PO Q6H PRN PRN Reason: Pain, Moderate (4-6) Sodium Chloride (Sodium Chloride 0.9% 10 Ml Flush Syringe) 10 ml IV BID [facility] Last Admin: 05/26/22 23:56 Dose: 10 ml Sodium Chloride (Sodium Chloride 0.9% 10 Ml Flush Syringe) 10 ml IV PRN PRN PRN Reason: LINE FLUSH Review of Systems All systems: negative (As per the HPI) Physical Examination Vital Signs Temp Pulse Resp BP Pulse Ox 97.6 F 99 H 16 92/30 94 05/26/22 10:37 05/26/22 10:37 05/26/22 10:37 05/26/22 10:37 05/26/22 10:37 General appearance: no acute distress, well-nourished HEENT: Positive: PERRL, Mucus Membranes Moist Neck: Positive: neck supple, trachea midline Cardiac: Positive: Irregularly Regular, S1/S2. Negative: Audible Murmur Lungs: Positive: clear to auscultation, Normal Breath Sounds Neuro: Positive: Grossly Intact Abdomen: Positive: Tender Female genitourinary: deferred Skin: Positive: Clear Incision: Cardiac Cath Site Musculoskeletal: No Pain, Normal Range of Motion Extremities: Present: normal. Absent: edema Results 05/27/22 06:13 05/27/22 06:13 Cardiac Enzymes 05/26/22 05/27/22 Range/Units 12:51 06:13 AST 24 19 (5-40) units/L Coagulation 05/26/22 Range/Units 12:51 PT 14.8 (12.2-14.9) Sec. INR 1.04 (0.87-1.13) CBC 05/26/22 07 Range/Units 12:51 06:13 WBC 8.9 10.2 (4.5-11.0) K/mm3 RBC 4.31 4.14 (3.65-5.03) M/mm3 Hgb 11.7 11.2 (10.1-14.3) gm/dl Hct 36.5 35.2 (30.3-42.9) % Plt Count 390 485 H (140-440) K/mm3 Comprehensive Metabolic Panel 05/26/22 05/27/22 Range/Units 12:51 06:13 Sodium 139 136 L (137-145) mmol/L Potassium 4.0 3.6 (3.6-5.0) mmol/L Chloride 98.8 102.2 (98-107) mmol/L Carbon Dioxide 20 L 20 L (22-30) mmol/L BUN 72 H 57 H (7-17) mg/dL Creatinine 4.0 H 2.2 H (0.6-1.2) mg/dL Glucose 87 208 H (65-100) mg/dL Calcium 9.4 8.0 L (8.4-10.2) mg/dL AST 24 19 (5-40) units/L ALT 12 11 (7-56) units/L Alkaline Phosphatase 63 46 (35-129) units/L Total Protein 6.7 5.3 L D (6.3-8.2) g/dL Albumin 2.9 L 1.9 L (3.9-5) g/dL - Imaging and Cardiology Echo: pending EKG interpretations - Telemetry EKG Rhythm: Atrial Fibrillation (Atrial fibrillation nonspecific ST-T's) Assessment and Plan 76-year-old female with history of mental illness presents with abdominal pain with perforated viscus had corrective surgery. Has atrial fibrillation. Also acute renal failure with hypotension. Continue IV fluids. Continue IV amiodarone. Hold off on oral anticoagulation given recent surgery. Echo pending. Discussed cardiac plan in detail with patient's son at bedside - Patient Problems (1) Atrial fibrillation Current Visit: Yes Status: Acute Qualifiers: Atrial fibrillation type: unspecified Qualified Code(s): I48.91 - Unspecified atrial fibrillation (2) TYRESE (acute kidney injury) Current Visit: Yes Status: Acute (3) Hypotension Current Visit: Yes Status: Acute (4) Perforated abdominal viscus Current Visit: Yes Status: Acute (5) Scalp laceration Current Visit: Yes Status: Acute Qualifiers: Encounter type: initial encounter Qualified Code(s): S01.01XA - Laceration without foreign body of scalp, initial encounter
[2022-05-27 10:59] LABS: Band Neutrophils # (Manual) 0.3 K/mm3; Basophils % (Manual) 0 % (0.0-1.8); Eosinophils % (Manual) 0 % (0.0-4.3); Total Cells Counted 100
[2022-05-27 11:00] LABS: Burr Cells 1+
[2022-05-27 11:01] LABS: Large Platelets Rare; Platelet Clumps Few
[2022-05-27 11:02] LABS: Platelet Estimate Consistent w Auto
--- NOTE | 2022-05-27 11:22 | Progress Note ---
Assessment and Plan Assessment and plan: This is a 76-year-old male with known past medical history of vascular dementia, cerebral atherosclerosis, hypothyroidism, and psych issues admitted for perforated viscus s/p right hemicolectomy. Was transferred to ICU post-op due to hypotension requiring vasopressor Hospital Course to Date: 05/27: Drowsy but AAO, on 2L NC. Off pressor this am, remains in Afib rate control. Still on Amiodarone gtt per Cardio. Exp lap sites noted with no complications. Still with hypoactive BS this am. Keep patient NPO, NGT to LIS, and continue current IV Abx per General Surgery. PT/OT consulted. Assessment and Plan #Perforated Abdominal Viscus #Perforated Transverse Colon Tumor #S/p Right Hemicolectomy - Presented with Abdominal pain for over 3 days - Noted on CT Abd/Pelvis, see report for detail - General Surgery Consulted, appreciated recommendations - 05/26 s/p exploratory laparotomy with extended right hemicolectomy and ileal colic anastomosis for perforated transverse colon tumor - Peritoneal fluid sent for culture, result pending - Keep patient NPO, NGT to LIS, and continue current IV Abx per General Surgery. - Continue current IVF - VTE proph- Heparin SubQ - PT/OT consulted #Hypotension #New Onset Atrial Fibrilation with RVR - New onset Afib with RVR with hypotension post-op required Anup gtt - most like secondary to above - Off Anup gtt this am, on Amiodarone gtt - Remains in Afib, HR 90 to 100s this am - Cardiology consulted, appreciate recommendations - 2D Echo pending - Maintain adequate perfusion - Continue rehydration with cont. IVF - Continue blood pressure monitor per protocol - Maintain MAP above 65 - VTE proph- Heparin SubQ #Acute Kidney Injury(TYRESE) most likely ATN #Hypokalemia-improved - most likely secondary to hypoperfusion - Baseline renal function is unknown, Presented with a Scr. as high as 4.0 - Scr. improved this am - CT abd/Pelvis reviewed, kidneys are unremarkable - Urine lytes pending - Maintain adequate perfusion - Continue rehydration with cont. IVF - Strict intake and output - Avoid nephrotoxic medications; Renally dose medications - Marrero in place - Monitor and replace electrolytes as needed - Consider Nephrology consult if renal function worsen #Scalp Laceration #S/p Fall at home - Posterior head laceration noted, shawn present. Incision open to air - CT head/brain/Spine noted, no evidence of fx or brain bleed. See report for details - Wound care per nursing - Fall precaution - PT/OT consulted #GI/DVT prophylaxis - PPI- pepcid - Heparin SubQ - SCD to bilateral lower extremities while in bed #Advance Care Planning - Disease education data, care plan, diagnoses, and prognosis were discussed with patient and patient's son at the bedside. Patient is a FULL code. All questions and concerns were addressed at this time. They acknowledged understanding and agreement with current care plan. The high probability of a clinically significant, sudden or life threatening deterioration of the [multiple] system(s) required my full and direct attention, intervention and personal management. The aggregate critical care time was [60] minutes. This time is in addition to time spent performing reported procedures but includes the following: [x] Data Review and interpretation [x] Patient assessment and monitoring of vital signs [x] Documentation [x] Medication orders and management Disposition Plan: ICU Total Time Spent with Patient (Minutes): 60 History Interval history: Patient seen and examined at the bedside. Drowsy but AAO, on 2L NC, c/o generalized soreness. Off pressor this morning. Remains on Amidarone gtt, still in Afib on the monitor- HR in the 90-100s. VSS. Abdominal dressing and X1 BREONNA drain noted with no complications. Hospitalist Physical - Constitutional Vitals: Temp Pulse Resp BP Pulse Ox 98.6 F 110 H 25 H 97/52 97 05/27/22 07:11 05/27/22 09:30 05/27/22 09:30 05/27/22 09:30 05/27/22 09:30 General appearance: Present: no acute distress, well-nourished, obese - EENT Eyes: Present: PERRL, EOM intact ENT: hearing intact - Neck Neck: Present: normal ROM - Respiratory Respiratory effort: normal Respiratory: bilateral: diminished - Cardiovascular Rhythm: irregularly irregular Heart Sounds: Present: S1 & S2 - Extremities Extremities: no ischemia, pulses intact, pulses symmetrical Extremity abnormal: edema - Peripheral Assessment Generalized Edema Type: Non-pitting Edema Degree: 2+ Capillary Refill: < 3 seconds Skin Temperature: Warm Peripheral Pulses: within normal limits - Abdominal General gastrointestinal: soft, non-distended, hypoactive bowel sounds, other - Integumentary Integumentary: Present: warm, dry - Psychiatric Psychiatric: appropriate mood/affect, cooperative, other (Drowsy but AAO and ap propriate) - Neurologic Neurologic: moves all extremities, other (Drowsy but AAO and appropriate) - Allied Health Allied health notes reviewed: nursing HEART Score - HEART Score Troponin: Troponin T < 0.010 ng/mL (0.00-0.029) 05/26/22 12:51 Results - Labs CBC & Chem 7: 05/27/22 06:13 05/27/22 06:13 Labs: Laboratory Last Values WBC 10.2 K/mm3 (4.5-11.0) 05/27/22 06:13 RBC 4.14 M/mm3 (3.65-5.03) 05/27/22 06:13 Hgb 11.2 gm/dl (10.1-14.3) 05/27/22 06:13 Hct 35.2 % (30.3-42.9) 05/27/22 06:13 MCV 85 fl (79-97) 05/27/22 06:13 MCH 27 pg (28-32) L 05/27/22 06:13 MCHC 32 % (30-34) 05/27/22 06:13 RDW 16.9 % (13.2-15.2) H 05/27/22 06:13 Plt Count 485 K/mm3 (140-440) H 05/27/22 06:13 Add Manual Diff Complete 05/27/22 06:13 Total Counted 100 05/27/22 06:13 Seg Neutrophils % Renewals Specialist 05/27/22 06:13 Seg Neuts % (Manual) 89.0 % (40.0-70.0) H 05/27/22 06:13 Band Neutrophils % 3.0 % 05/27/22 06:13 Lymphocytes % (Manual) 4.0 % (13.4-35.0) L 05/27/22 06:13 Reactive Lymphs % (Man) 1.0 % 05/27/22 06:13 Monocytes % (Manual) 2.0 % (0.0-7.3) 05/27/22 06:13 Eosinophils % (Manual) 0 % (0.0-4.3) 05/27/22 06:13 Basophils % (Manual) 0 % (0.0-1.8) 05/27/22 06:13 Metamyelocytes % 1.0 % 05/27/22 06:13 Myelocytes % 0 % 05/27/22 06:13 Promyelocytes % 0 % 05/27/22 06:13 Blast Cells % 0 % 05/27/22 06:13 Nucleated RBC % Not Reportable 05/27/22 06:13 Seg Neutrophils # Man 9.1 K/mm3 (1.8-7.7) H 05/27/22 06:13 Band Neutrophils # 0.3 K/mm3 05/27/22 06:13 Lymphocytes # (Manual) 0.4 K/mm3 (1.2-5.4) L 05/27/22 06:13 Abs React Lymphs (Man) 0.1 K/mm3 05/27/22 06:13 Monocytes # (Manual) 0.2 K/mm3 (0.0-0.8) 05/27/22 06:13 Eosinophils # (Manual) 0.0 K/mm3 (0.0-0.4) 05/27/22 06:13 Basophils # (Manual) 0.0 K/mm3 (0.0-0.1) 05/27/22 06:13 Metamyelocytes # 0.1 K/mm3 05/27/22 06:13 Myelocytes # 0.0 K/mm3 05/27/22 06:13 Promyelocytes # 0.0 K/mm3 05/27/22 06:13 Blast Cells # 0.0 K/mm3 05/27/22 06:13 WBC Morphology Not Reportable 05/27/22 06:13 Hypersegmented Neuts Not Reportable 05/27/22 06:13 Hyposegmented Neuts Not Reportable 05/27/22 06:13 Hypogranular Neuts Not Reportable 05/27/22 06:13 Smudge Cells Not Reportable 05/27/22 06:13 Toxic Granulation Not Reportable 05/27/22 06:13 Toxic Vacuolation Not Reportable 05/27/22 06:13 Dohle Bodies Not Reportable 05/27/22 06:13 Pelger-Huet Anomaly Not Reportable 05/27/22 06:13 Yesica Rods Not Reportable 05/27/22 06:13 Platelet Estimate Consistent w auto 05/27/22 06:13 Clumped Platelets Few 05/27/22 06:13 Plt Clumps, EDTA Not Reportable 05/27/22 06:13 Large Platelets Rare 05/27/22 06:13 Giant Platelets Not Reportable 05/27/22 06:13 Platelet Satelliting Not Reportable 05/27/22 06:13 Plt Morphology Comment Not Reportable 05/27/22 06:13 RBC Morphology Not Reportable 05/27/22 06:13 Dimorphic RBCs Not Reportable 05/27/22 06:13 Polychromasia Not Reportable 05/27/22 06:13 Hypochromasia Not Reportable 05/27/22 06:13 Poikilocytosis Not Reportable 05/27/22 06:13 Anisocytosis Not Reportable 05/27/22 06:13 Microcytosis Not Reportable 05/27/22 06:13 Macrocytosis Not Reportable 05/27/22 06:13 Spherocytes Not Reportable 05/27/22 06:13 Pappenheimer Bodies Not Reportable 05/27/22 06:13 Sickle Cells Not Reportable 05/27/22 06:13 Target Cells Not Reportable 05/27/22 06:13 Tear Drop Cells Not Reportable 05/27/22 06:13 Ovalocytes Not Reportable 05/27/22 06:13 Helmet Cells Not Reportable 05/27/22 06:13 Lr-[place] Bodies Not Reportable 05/27/22 06:13 [place] Rings Not Reportable 05/27/22 06:13 [place] Cells 1+ 05/27/22 06:13 Bite Cells Not Reportable 05/27/22 06:13 Crenated Cell Not Reportable 05/27/22 06:13 Elliptocytes Few 05/27/22 06:13 Acanthocytes (Spur) Not Reportable 05/27/22 06:13 Rouleaux Not Reportable 05/27/22 06:13 Hemoglobin C Crystals Not Reportable 05/27/22 06:13 Schistocytes Not Reportable 05/27/22 06:13 Malaria parasites Not Reportable 05/27/22 06:13 Edd Bodies Not Reportable 05/27/22 06:13 Hem Pathologist Commnt No 05/27/22 06:13 PT 14.8 Sec. (12.2-14.9) 05/26/22 12:51 INR 1.04 (0.87-1.13) 05/26/22 12:51 Sodium 136 mmol/L (137-145) L 05/27/22 06:13 Potassium 3.6 mmol/L (3.6-5.0) 05/27/22 06:13 Chloride 102.2 mmol/L (98-107) 05/27/22 06:13 Carbon Dioxide 20 mmol/L (22-30) L 05/27/22 06:13 Anion Gap 17 mmol/L 05/27/22 06:13 BUN 57 mg/dL (7-17) H 05/27/22 06:13 Creatinine 2.2 mg/dL (0.6-1.2) H 05/27/22 06:13 Estimated GFR 22 ml/min 05/27/22 06:13 BUN/Creatinine Ratio 26 % 05/27/22 06:13 Glucose 208 mg/dL (65-100) H 05/27/22 06:13 Lactic Acid 1.80 mmol/L (0.7-2.0) 05/26/22 12:51 Calcium 8.0 mg/dL (8.4-10.2) L 05/27/22 06:13 Phosphorus 4.70 mg/dL (2.5-4.5) H 05/26/22 12:51 Magnesium 1.90 mg/dL (1.7-2.3) 05/26/22 12:51 Total Bilirubin 0.40 mg/dL (0.1-1.2) 05/27/22 06:13 AST 19 units/L (5-40) 05/27/22 06:13 ALT 11 units/L (7-56) 05/27/22 06:13 Alkaline Phosphatase 46 units/L (35-129) 05/27/22 06:13 Ammonia 19.0 umol/L (25-60) L 05/26/22 12:51 Total Creatine Kinase 262 units/L (30-135) H 05/26/22 12:51 Troponin T < 0.010 ng/mL (0.00-0.029) 05/26/22 12:51 NT-Pro-B Natriuret Pep 2054 pg/mL (0-900) H 05/26/22 12:51 Total Protein 5.3 g/dL (6.3-8.2) L D 05/27/22 06:13 Albumin 1.9 g/dL (3.9-5) L 05/27/22 06:13 Albumin/Globulin Ratio 0.6 % 05/27/22 06:13 TSH 2.890 mlU/mL (0.270-4.200) 05/26/22 12:51 Urine Color Yellow (Yellow) 05/26/22 02:15 Urine Turbidity Clear (Clear) 05/26/22 02:15 Urine pH 5.0 (5.0-7.0) 05/26/22 02:15 Ur Specific [place] 1.013 (1.003-1.030) 05/26/22 02:15 Urine Protein <15 mg/dl mg/dL (Negative) 05/26/22 02:15 Urine Glucose (UA) Neg mg/dL (Negative) 05/26/22 02:15 Urine Ketones Neg mg/dL (Negative) 05/26/22 02:15 Urine Blood Sm (Negative) 05/26/22 02:15 Urine Nitrite Neg (Negative) 05/26/22 02:15 Urine Bilirubin Neg (Negative) 05/26/22 02:15 Urine Urobilinogen < 2.0 mg/dL (<2.0) 05/26/22 02:15 Ur Leukocyte Esterase Neg (Negative) 05/26/22 02:15 Urine WBC (Auto) 20.0 /HPF (0.0-6.0) H 05/26/22 02:15 Urine RBC (Auto) 3.0 /HPF (0.0-6.0) 05/26/22 02:15 U Epithel Cells (Auto) 1.0 /HPF (0-13.0) 05/26/22 02:15 Urine Bacteria (Auto) 1+ /HPF (Negative) 05/26/22 02:15 Ur Transition Epith Cell 2 /HPF 05/26/22 02:15 Urine Mucus Few /HPF 05/26/22 02:15 Valproic Acid 45.5 ug/mL (50-100) L 05/26/22 12:51 Blood Type A POSITIVE 05/26/22 15:06 Antibody Screen Negative 05/26/22 15:06 Microbiology: Microbiology 05/26/22 18:24 Peritioneal Dialysate Peritoneal Dialysate Culture - Preliminary 05/26/22 12:51 Peripheral/Venous Blood Culture - Preliminary Culture in Progress 05/26/22 12:51 Peripheral/Venous Blood Culture - Preliminary Culture in Progress 05/26/22 Unknown Stool Stool Occult Blood (LATESHA) - Final Marrero/IV: Voiding Method Indwelling Catheter Active Medications - Current Medications Current Medications: Generic Name Dose Route Start Last Admin Trade Name Freq PRN Reason Stop Dose Admin Acetaminophen 650 mg 05/26/22 16:11 Acetaminophen 650 Mg Rect Supp [place] Q6H PRN Pain MILD(1-3)/Fever >100.5/GE Hydromorphone HCl 0.5 mg 05/26/22 16:14 Hydromorphone 0.5 Mg/0.5 Ml Inj IV Q3H PRN Pain , Severe (7-10) Amiodarone HCl 900 mg/ 500 mls @ 33.333 mls/hr 05/26/22 23:00 05/27/22 03:25 Dextrose IV 0.5 mg/min DIRECT ROLANDO 16.667 mls/hr Titration Protocol 1 MG/MIN Phenylephrine HCl 100 mg/ 100 mls @ 3 mls/hr 05/26/22 22:15 05/27/22 08:45 Sodium Chloride IV 0 mcg/min TITR ROLANDO 0 mls/hr Titration Protocol 50 MCG/MIN Acetaminophen 1,000 mg in 100 mls @ 400 mls/hr 05/26/22 23:46 05/27/22 05:03 Acetaminophen Iv IV 05/27/22 18:14 400 mls/hr Q6HR ROLANDO Administration Dextrose/Sodium Chloride 1,000 mls @ 125 mls/hr 05/26/22 23:46 05/27/22 08:24 D5/0.45ns IV 125 mls/hr DIRECT ROLANDO Administration Cefepime HCl 2 gm in 100 mls @ 200 mls/hr 05/27/22 12:00 Cefepime/Ns 2 Gm/100 Ml IV Q24H ROLANDO Morphine Sulfate 2 mg 05/26/22 16:14 Morphine 2 Mg/1 Ml Inj IV Q4H PRN Pain, Moderate (4-6) Morphine Sulfate 4 mg 05/26/22 16:16 Morphine 4 Mg/1 Ml Inj IV Q4H PRN Pain , Severe (7-10) Oxycodone/Acetaminophen 1 tab 05/26/22 16:16 Oxycodone /Acetaminophen 5-325mg Tab PO Q6H PRN Pain, Moderate (4-6) Sodium Chloride 10 ml 05/26/22 22:00 05/26/22 23:56 Sodium Chloride 0.9% 10 Ml Flush Syringe IV 10 ml BID ROLANDO Administration Sodium Chloride 10 ml 05/26/22 16:11 Sodium Chloride 0.9% 10 Ml Flush Syringe IV PRN PRN LINE FLUSH
[2022-05-27] MEDS ORDERED: CEFEPIME/NS 2 GM/100 ML 2 GM/100 ML BAG IV SCH (12:00)
--- NOTE | 2022-05-27 13:52 | Progress Note ---
Assessment and Plan Postop day 1 status post exploratory laparotomy with extended right hemicolectomy and ileal colic anastomosis for perforated transverse colon tumor. Patient is afebrile and stable. We will continue antibiotics and NG tube suction until swallowing signs of return of bowel function. Subjective Date of service: 05/27/22 Narrative: Overnight pt at episodes of afibb. she is now rate controlled. No other acute events. Patient is arousable and denies any significant pain. Objective Vital Signs - 12hr 05/27/22 05/27/22 05/27/22 02:00 02:15 02:30 Temperature Pulse Rate 119 H 113 H 117 H Pulse Rate [ From Monitor] Respiratory 17 18 16 Rate Blood Pressure 87/39 92/43 93/41 O2 Sat by Pulse 100 99 100 Oximetry 05/27/22 05/27/22 05/27/22 02:45 03:00 03:15 Temperature Pulse Rate 111 H 110 H 115 H Pulse Rate [ From Monitor] Respiratory 17 18 15 Rate Blood Pressure 93/48 95/48 90/38 O2 Sat by Pulse 99 100 99 Oximetry 05/27/22 05/27/22 05/27/22 03:26 03:27 03:30 Temperature 98 F Pulse Rate 117 H 120 H Pulse Rate [ From Monitor] Respiratory 19 22 Rate Blood Pressure 91/52 O2 Sat by Pulse 98 98 Oximetry 05/27/22 05/27/22 05/27/22 03:45 04:00 04:15 Temperature Pulse Rate 116 H 119 H 113 H Pulse Rate [ From Monitor] Respiratory 19 18 18 Rate Blood Pressure 92/49 83/46 83/46 O2 Sat by Pulse 99 99 99 Oximetry 05/27/22 05/27/22 05/27/22 04:30 04:40 04:45 Temperature Pulse Rate 100 H 115 H Pulse Rate [ From Monitor] Respiratory 17 18 Rate Blood Pressure 109/57 101/60 O2 Sat by Pulse 99 98 98 Oximetry 05/27/22 05/27/22 05/27/22 05:00 05:15 05:30 Temperature Pulse Rate 105 H 98 H 103 H Pulse Rate [ From Monitor] Respiratory 17 17 17 Rate Blood Pressure 119/62 119/62 109/60 O2 Sat by Pulse 99 98 98 Oximetry 05/27/22 05/27/22 05/27/22 05:45 06:00 06:15 Temperature Pulse Rate 104 H 112 H 121 H Pulse Rate [ From Monitor] Respiratory 15 19 24 Rate Blood Pressure 117/50 105/61 106/74 O2 Sat by Pulse 97 98 98 Oximetry 05/27/22 05/27/22 05/27/22 06:30 06:45 07:00 Temperature Pulse Rate 110 H 95 H 116 H Pulse Rate [ From Monitor] Respiratory 20 17 20 Rate Blood Pressure 115/61 109/55 118/61 O2 Sat by Pulse 99 98 98 Oximetry 05/27/22 05/27/22 05/27/22 07:11 07:15 07:30 Temperature 98.6 F Pulse Rate 107 H 115 H Pulse Rate [ From Monitor] Respiratory 19 20 Rate Blood Pressure 116/62 111/57 O2 Sat by Pulse 99 98 Oximetry 05/27/22 05/27/22 05/27/22 07:45 08:00 08:15 Temperature Pulse Rate 112 H 100 H 118 H Pulse Rate [ 101 H From Monitor] Respiratory 20 21 23 Rate Blood Pressure 116/67 110/64 119/65 O2 Sat by Pulse 99 98 98 Oximetry 05/27/22 05/27/22 05/27/22 08:30 08:45 09:00 Temperature Pulse Rate 102 H 102 H 112 H Pulse Rate [ From Monitor] Respiratory 18 20 17 Rate Blood Pressure 115/78 122/71 114/69 O2 Sat by Pulse 98 98 98 Oximetry 05/27/22 05/27/22 05/27/22 09:15 09:30 09:45 Temperature Pulse Rate 104 H 110 H 119 H Pulse Rate [ From Monitor] Respiratory 16 25 H 21 Rate Blood Pressure 102/59 97/52 103/62 O2 Sat by Pulse 98 97 97 Oximetry 05/27/22 05/27/22 05/27/22 10:00 10:15 10:30 Temperature Pulse Rate 89 97 H 114 H Pulse Rate [ From Monitor] Respiratory 25 H 18 16 Rate Blood Pressure 100/60 94/59 96/66 O2 Sat by Pulse 97 97 96 Oximetry 05/27/22 05/27/22 05/27/22 10:45 11:00 11:15 Temperature Pulse Rate 99 H 109 H 113 H Pulse Rate [ From Monitor] Respiratory 23 18 17 Rate Blood Pressure 98/63 101/60 94/65 O2 Sat by Pulse 98 98 97 Oximetry 07/10/22 07/10/22 07/10/22 11:30 11:45 12:00 Temperature Pulse Rate 100 H 99 H 100 H Pulse Rate [ 110 H From Monitor] Respiratory 18 19 16 Rate Blood Pressure 95/57 103/59 96/60 O2 Sat by Pulse 98 99 98 Oximetry 05/27/22 05/27/22 12:22 12:43 Temperature 98.9 F Pulse Rate Pulse Rate [ From Monitor] Respiratory 18 Rate Blood Pressure O2 Sat by Pulse Oximetry - General physical appearance well developed, no distress, no pain - Eyes PERRL - Respiratory normal expansion, normal respiratory effort - Abdomen soft, other (Midline dressing clean dry and intact, BREONNA drain serosanguineous, probably tender to palpation) - Labs 05/27/22 06:13 05/27/22 06:13 Diabetes panel 05/26/22 05/27/22 Range/Units 12:51 06:13 Sodium 139 136 L (137-145) mmol/L Potassium 4.0 3.6 (3.6-5.0) mmol/L Chloride 98.8 102.2 (98-107) mmol/L Carbon Dioxide 20 L 20 L (22-30) mmol/L BUN 72 H 57 H (7-17) mg/dL Creatinine 4.0 H 2.2 H (0.6-1.2) mg/dL Glucose 87 208 H (65-100) mg/dL Calcium 9.4 8.0 L (8.4-10.2) mg/dL AST 24 19 (5-40) units/L ALT 12 11 (7-56) units/L Alkaline Phosphatase 63 46 (35-129) units/L Total Protein 6.7 5.3 L D (6.3-8.2) g/dL Albumin 2.9 L 1.9 L (3.9-5) g/dL Thyroid panel 05/26/22 Range/Units 12:51 TSH 2.890 (0.270-4.200) mlU/mL Calcium panel 05/26/22 05/27/22 Range/Units 12:51 06:13 Calcium 9.4 8.0 L (8.4-10.2) mg/dL Phosphorus 4.70 H (2.5-4.5) mg/dL Albumin 2.9 L 1.9 L (3.9-5) g/dL Pituitary panel 05/26/22 05/26/22 05/27/22 Range/Units 12:51 12:51 06:13 Sodium 139 136 L (137-145) mmol/L Potassium 4.0 3.6 (3.6-5.0) mmol/L Chloride 98.8 102.2 (98-107) mmol/L Carbon Dioxide 20 L 20 L (22-30) mmol/L BUN 72 H 57 H (7-17) mg/dL Creatinine 4.0 H 2.2 H (0.6-1.2) mg/dL Glucose 87 208 H (65-100) mg/dL Calcium 9.4 8.0 L (8.4-10.2) mg/dL TSH 2.890 (0.270-4.200) mlU/mL Adrenal panel 05/26/22 05/27/22 Range/Units 12:51 06:13 Sodium 139 136 L (137-145) mmol/L Potassium 4.0 3.6 (3.6-5.0) mmol/L Chloride 98.8 102.2 (98-107) mmol/L Carbon Dioxide 20 L 20 L (22-30) mmol/L BUN 72 H 57 H (7-17) mg/dL Creatinine 4.0 H 2.2 H (0.6-1.2) mg/dL Glucose 87 208 H (65-100) mg/dL Calcium 9.4 8.0 L (8.4-10.2) mg/dL Total Bilirubin 0.50 0.40 (0.1-1.2) mg/dL AST 24 19 (5-40) units/L ALT 12 11 (7-56) units/L Alkaline Phosphatase 63 46 (35-129) units/L Total Protein 6.7 5.3 L D (6.3-8.2) g/dL Albumin 2.9 L 1.9 L (3.9-5) g/dL
[2022-05-27] MEDS: metroNIDAZOLE/NS 500 MG/100 ML 500 MG/100 ML BAG IV SCH ×2 (14:07→20:05)
--- NOTE | 2022-05-27 16:23 | Consultation ---
History of Present Illness Consult date: 05/27/22 Requesting physician: JENNIFER RATLIFF Reason for consult: other (Post op hypotension on vasopressor support) History of present illness: This is a 76-year-old female with a past medical history of hypothyroidism, currently on Synthroid, Depakote, and Risperdal; vascular dementia, cerebral atherosclerosis,admitted for perforated viscus s/p right hemicolectomy. Was transferred to ICU post-op due to hypotension requiring vasopressor Patient seen and examined. Vitals, labs, medications, chart and imaging reviewed. Postop day 1 status post exploratory laparotomy with extended right hemicolectomy and ileal colic anastomosis for perforated transverse colon tumor. She had no overnight adverse events, off Neosynephrine this morning. On Amiodarone infusion Currently on supplemental oxygen at 3L [place] Discussed with nursing care staff, no reported adverse overnight events. Past History Past Medical History: hypothyroidism, other (See HPI mental illness) Past Surgical History: No surgical history, Other (Reviewed) Social history: . denies: smoking, alcohol abuse, prescription drug abuse Family history: no significant family history, other (Reviewed) Medications and Allergies Allergies Allergy/AdvReac Type Severity Reaction Status Date / Time carbamazepine [From Tegretol] Allergy Unknown Verified 05/26/22 16:33 clonazepam [From Klonopin] Allergy Unknown Verified 05/26/22 16:33 codeine AdvReac Nausea Verified 05/26/22 16:33 lithium AdvReac Nausea Verified 05/26/22 16:33 Active Meds: Active Medications Acetaminophen (Acetaminophen 650 Mg Rect Supp) 650 mg [place] Q6H PRN PRN Reason: Pain MILD(1-3)/Fever >100.5/GE Famotidine (Famotidine 20 Mg/2 Ml Inj) 20 mg IV BID ROLANDO Heparin Sodium (Porcine) (Heparin 5,000 Unit/1 Ml Vial) 5,000 unit SUB-Q Q8HR ROLANDO Hydromorphone HCl (Hydromorphone 0.5 Mg/0.5 Ml Inj) 0.5 mg IV Q3H PRN PRN Reason: Pain , Severe (7-10) Amiodarone HCl 900 mg/ (Dextrose) 500 mls @ 33.333 mls/hr IV DIRECT ROLANDO; Protocol Last Titration: 05/27/22 03:25 Dose: 0.5 mg/min, 16.667 mls/hr Phenylephrine HCl 100 mg/ (Sodium Chloride) 100 mls @ 3 mls/hr IV TITR [facility]; Protocol Last Titration: 05/27/22 08:45 Dose: 0 mcg/min, 0 mls/hr Acetaminophen (Acetaminophen Iv) 1,000 mg in 100 mls @ 400 mls/hr IV Q6HR ROLANDO Stop: 05/27/22 18:14 Last Admin: 05/27/22 12:43 Dose: 400 mls/hr Dextrose/Sodium Chloride (D5/0.45ns) 1,000 mls @ 125 mls/hr IV DIRECT ROLANDO Last Admin: 05/27/22 08:24 Dose: 125 mls/hr Cefepime HCl (Cefepime/Ns 2 Gm/100 Ml) 2 gm in 100 mls @ 200 mls/hr IV Q24H [facility] Last Admin: 05/27/22 12:37 Dose: 200 mls/hr Metronidazole (Flagyl 500 Mg/100 Ml) 500 mg in 100 mls @ 100 mls/hr IV Q8H [facility]; Protocol Last Admin: 05/27/22 14:07 Dose: 100 mls/hr Morphine Sulfate (Morphine 2 Mg/1 Ml Inj) 2 mg IV Q4H PRN PRN Reason: Pain, Moderate (4-6) Morphine Sulfate (Morphine 4 Mg/1 Ml Inj) 4 mg IV Q4H PRN PRN Reason: Pain , Severe (7-10) Oxycodone/Acetaminophen (Oxycodone /Acetaminophen 5-325mg Tab) 1 tab PO Q6H PRN PRN Reason: Pain, Moderate (4-6) Sodium Chloride (Sodium Chloride 0.9% 10 Ml Flush Syringe) 10 ml IV BID [facility] Last Admin: 05/27/22 12:38 Dose: 10 ml Sodium Chloride (Sodium Chloride 0.9% 10 Ml Flush Syringe) 10 ml IV PRN PRN PRN Reason: LINE FLUSH Review of Systems ROS unobtainable: due to mental status Physical Examination Vital signs: Vital Signs Temp Pulse Resp BP Pulse Ox 97.6 F 99 H 16 92/30 94 05/26/22 10:37 05/26/22 10:37 05/26/22 10:37 05/26/22 10:37 05/26/22 10:37 Vitals reviewed. General appearance: Present: no acute distress, well-nourished, - EENT Eyes: Present: PERRL, EOM intact - Neck Neck: Present: normal ROM - Respiratory Respiratory effort: normal Respiratory: bilateral: diminished - Cardiovascular Rhythm: irregularly irregular Heart Sounds: Present: S1 & S2 - Extremities Extremities: no ischemia, pulses intact, pulses symmetrical Extremity abnormal: edema - Peripheral Assessment Edema Type: No edema Edema Degree: Capillary Refill: < 3 seconds Skin Temperature: Warm Peripheral Pulses: within normal limits - Abdominal General gastrointestinal: soft, non-distended, hypoactive bowel sounds, other BREONNA taisha, post surgical scar with dry dressing - Integumentary Integumentary: Present: warm, dry - Psychiatric Psychiatric: appropriate mood/affect, cooperative, other (Drowsy but AAO and appropriate) - Neurologic Neurologic: moves all extremities, obeys simple commands other (Drowsy but AAO and appropriate) Results - Laboratory Findings CBC and BMP: 05/27/22 06:13 05/27/22 06:13 PT/INR, D-dimer PT 14.8 Sec. (12.2-14.9) 05/26/22 12:51 INR 1.04 (0.87-1.13) 05/26/22 12:51 Abnormal lab findings: Abnormal Labs 05/26/22 05/26/22 05/26/22 02:15 12:51 12:51 MCH 27 L RDW 17.0 H Plt Count Seg Neuts % (Manual) 91.0 H Lymphocytes % (Manual) 2.0 L Seg Neutrophils # Man 8.1 H Lymphocytes # (Manual) 0.2 L Sodium Carbon Dioxide 20 L BUN 72 H Creatinine 4.0 H Glucose Calcium Phosphorus 4.70 H Ammonia Total Creatine Kinase 262 H NT-Pro-B Natriuret Pep Total Protein Albumin 2.9 L Urine WBC (Auto) 20.0 H Valproic Acid 05/26/22 05/26/22 05/26/22 12:51 12:51 12:51 MCH RDW Plt Count Seg Neuts % (Manual) Lymphocytes % (Manual) Seg Neutrophils # Man Lymphocytes # (Manual) Sodium Carbon Dioxide BUN Creatinine Glucose Calcium Phosphorus Ammonia 19.0 L Total Creatine Kinase NT-Pro-B Natriuret Pep 2054 H Total Protein Albumin Urine WBC (Auto) Valproic Acid 45.5 L 05/27/22 05/27/22 06:13 06:13 MCH 27 L RDW 16.9 H Plt Count 485 H Seg Neuts % (Manual) 89.0 H Lymphocytes % (Manual) 4.0 L Seg Neutrophils # Man 9.1 H Lymphocytes # (Manual) 0.4 L Sodium 136 L Carbon Dioxide 20 L BUN 57 H Creatinine 2.2 H Glucose 208 H Calcium 8.0 L Phosphorus Ammonia Total Creatine Kinase NT-Pro-B Natriuret Pep Total Protein 5.3 L D Albumin 1.9 L Urine WBC (Auto) Valproic Acid - Diagnostic Findings Chest x-ray: image reviewed Assessment and Plan Post op hypotension Perforated Abdominal Viscus/Perforated Transverse Colon Tumor-S/p Right Hemicolectomy New Onset Atrial Fibrilation with RVR Acute Kidney Injury(TYRESE) most likely ATN Hypokalemia-improved Scalp Laceration S/p Fall at home -titrate supplemental oxygen to keep SpO2 90-92% -Continue with empiric antibiosis therapy. De-escalte based on Peritoneal fluid sent for culture, result pending - Keep patient NPO, NGT to LIS - Continue current IVF - VTE prophylaxis- Heparin to start today - PT/OT to evaluate and treat - 2D Echo pending - Maintain MAP above 65 - Baseline renal function is unknown CT abd/Pelvis reviewed, kidneys are unremar kable - Strict intake and output, Marrero in place - Avoid nephrotoxic medications; Renally dose medications - Monitor and replace electrolytes as needed - Posterior head laceration noted, shawn present. Incision open to air - CT head/brain/Spine noted, no evidence of fx or brain bleed. See report for details - Wound care per nursing - Fall precautions - Chronic home medications- patient has a Psych history. Once we have the list, change oral medications to IV while NPO Discussed care plan with [employer] and with Dr. Amanda Continue to observe in the ICU overnight. If she remains hemodynamically normal can transfer out of the unit in tomorrow
--- NOTE | 2022-05-27 19:44 | Electrocardiograph Report ---
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
--- NOTE | 2022-05-27 19:54 | Electrocardiograph Report ---
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
[2022-05-27 20:04] LABS: Bilirubin,Urine NEG (Negative); Blood,Urine NEG (Negative); Color,Urine Yellow (Yellow); Protein,Urine <15 mg/dL mg/dL (Negative); Urobilinogen,Urine < 2.0 mg/dL (<2.0)
[2022-05-27] MEDS: AMIODARONE 900 MG in DEXTROSE 5% IN WATER 482 ML IV SCH (20:06)
[2022-05-27 20:08] LABS: Bacteria,Urine 1+ /HPF (Negative); Mucus,Urine FEW /HPF
[2022-05-27] MEDS: HEPARIN 5,000 UNIT/1 ML VIAL SUB-Q SCH (21:56)
[2022-05-27] MEDS: FAMOTIDINE 20 MG/2 ML INJ IV SCH (21:56)
[2022-05-28] MEDS: MORPHINE 2 MG/1 ML INJ IV PRN (04:16)
[2022-05-28 04:21] LABS: Hematocrit 35.3 % (30.3-42.9); Hemoglobin 11.5 gm/dl (10.1-14.3); Mean Corpuscular HGB Conc 33 % (30-34); Mean Corpuscular Volume 84 fl (79-97); Platelet Count 352 K/mm3 (140-440); Red Blood Count 4.21 M/mm3 (3.65-5.03); Red Cell Distribution Width 17.3 % (13.2-15.2)
[2022-05-28] MEDS: metroNIDAZOLE/NS 500 MG/100 ML 500 MG/100 ML BAG IV SCH ×3 (05:00→20:12)
[2022-05-28] MEDS: HEPARIN 5,000 UNIT/1 ML VIAL SUB-Q SCH ×3 (06:54→21:39)
--- NOTE | 2022-05-28 08:54 | Progress Note ---
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 De-escalte based on Peritoneal fluid sent for culture, result pending - Keep patient NPO, NGT to LIS - Continue current IVF - VTE prophylaxis- Heparin - PT/OT , increase activity as tolerated - Baseline renal function is unknown CT abd/Pelvis reviewed, kidneys are unremarkable - Discontinue Marrero - Avoid nephrotoxic medications; Renally dose medications - Monitor and replace electrolytes as needed - Posterior head laceration noted, shawn present. Incision open to air - Wound care per nursing - Fall precautions - Chronic home medications- patient has a Psych history. Once we have the list, change oral medications to IV while NPO Updated the son at the bedside Can transfer her out of the ICU Subjective Date of service: 05/28/22 Interval history: Follow up:Post op hypotension;Perforated Abdominal Viscus/Perforated Transverse Colon Tumor-S/p Right Hemicolectomy; New Onset Atrial Fibrillation with RVR; Acute Kidney Injury(TYRESE) most likely ATN; Scalp Laceration; S/p Fall at home Seen and examined. Vitals, labs, medication, chart reviewed. Discussed with nursing care staff. No adverse overnight events reported No fevers, no nausea or vomiting. Has not passed flatus. Son is visiting at the bedside Patient just got done with PT/OT Objective - Exam Narrative Exam: Vitals reviewed. General appearance: Present: no acute distress, well-nourished, - EENT Eyes: Present: PERRL, EOM intact - Neck Neck: Present: normal ROM - Respiratory Respiratory effort: normal Respiratory: bilateral: diminished - Cardiovascular Rhythm: irregularly irregular Heart Sounds: Present: S1 & S2 - Extremities Extremities: no ischemia, pulses intact, pulses symmetrical Extremity abnormal: edema - Peripheral Assessment Edema Type: No edema Edema Degree: Capillary Refill: < 3 seconds Skin Temperature: Warm Peripheral Pulses: within normal limits - Abdominal General gastrointestinal: soft, non-distended, hypoactive bowel sounds, other BREONNA drain, post surgical scar with dry dressing - Integumentary Integumentary: Present: warm, dry - Psychiatric Psychiatric: appropriate mood/affect, cooperative, - Neurologic Neurologic: moves all extremities, obeys commands, AOx4 Vital Signs - 12hr 05/27/22 05/27/22 05/27/22 21:01 21:15 21:31 Temperature Pulse Rate 98 H 104 H 122 H Pulse Rate [ From Monitor] Respiratory 16 15 20 Rate Blood Pressure 89/45 89/45 89/45 O2 Sat by Pulse 96 98 96 Oximetry 05/27/22 05/27/22 05/27/22 21:45 22:00 22:01 Temperature Pulse Rate 115 H 123 H Pulse Rate [ From Monitor] Respiratory 19 17 Rate Blood Pressure 89/45 104/53 O2 Sat by Pulse 97 95 96 Oximetry 05/27/22 05/27/22 05/27/22 22:15 22:31 22:45 Temperature Pulse Rate 118 H 116 H 106 H Pulse Rate [ From Monitor] Respiratory 20 20 17 Rate Blood Pressure 104/53 104/53 104/53 O2 Sat by Pulse 95 97 95 Oximetry 05/27/22 05/27/22 05/27/22 23:00 23:15 23:21 Temperature Pulse Rate 104 H 107 H 107 H Pulse Rate [ From Monitor] Respiratory 16 15 15 Rate Blood Pressure 108/46 108/46 108/46 O2 Sat by Pulse 96 96 97 Oximetry 05/27/22 05/27/22 05/28/22 23:31 23:45 00:00 Temperature 97.4 F L Pulse Rate 114 H 93 H 106 H Pulse Rate [ 104 H From Monitor] Respiratory 15 15 18 Rate Blood Pressure 108/46 108/46 87/51 O2 Sat by Pulse 97 96 97 Oximetry 05/28/22 05/28/22 05/28/22 00:15 00:31 00:45 Temperature Pulse Rate 108 H 123 H 117 H Pulse Rate [ From Monitor] Respiratory 18 21 18 Rate Blood Pressure 108/46 108/57 108/57 O2 Sat by Pulse 95 94 95 Oximetry 05/28/22 05/28/22 05/28/22 01:00 01:15 01:31 Temperature Pulse Rate 129 H 119 H 116 H Pulse Rate [ From Monitor] Respiratory 20 19 17 Rate Blood Pressure 98/48 98/48 98/48 O2 Sat by Pulse 96 97 96 Oximetry 05/28/22 05/28/22 05/28/22 01:45 02:00 02:15 Temperature Pulse Rate 102 H 113 H 108 H Pulse Rate [ From Monitor] Respiratory 14 14 16 Rate Blood Pressure 98/48 92/52 92/52 O2 Sat by Pulse 96 96 96 Oximetry 05/28/22 05/28/22 05/28/22 02:31 02:45 03:00 Temperature Pulse Rate 112 H 113 H 117 H Pulse Rate [ From Monitor] Respiratory 23 19 22 Rate Blood Pressure 92/52 92/52 104/56 O2 Sat by Pulse 95 96 96 Oximetry 05/28/22 05/28/22 05/28/22 03:15 03:31 03:45 Temperature Pulse Rate 125 H 107 H 108 H Pulse Rate [ From Monitor] Respiratory 20 18 24 Rate Blood Pressure 104/56 104/56 104/56 O2 Sat by Pulse 97 96 96 Oximetry 05/28/22 05/28/22 05/28/22 04:00 04:15 04:16 Temperature 97.5 F L Pulse Rate 114 H 121 H Pulse Rate [ 104 H From Monitor] Respiratory 18 19 18 Rate Blood Pressure 109/62 109/62 O2 Sat by Pulse 97 97 Oximetry 05/28/22 05/28/22 05/28/22 04:31 04:45 05:00 Temperature Pulse Rate 122 H 119 H 119 H Pulse Rate [ From Monitor] Respiratory 23 14 19 Rate Blood Pressure 109/62 109/62 119/53 O2 Sat by Pulse 96 96 96 Oximetry 05/28/22 05/28/22 05/28/22 05:15 05:31 05:45 Temperature Pulse Rate 121 H 108 H 109 H Pulse Rate [ From Monitor] Respiratory 13 13 16 Rate Blood Pressure 109/62 109/62 109/62 O2 Sat by Pulse 97 97 97 Oximetry 05/28/22 05/28/22 05/28/22 06:00 06:15 06:31 Temperature Pulse Rate 101 H 105 H 116 H Pulse Rate [ From Monitor] Respiratory 14 19 24 Rate Blood Pressure 108/48 108/48 108/48 O2 Sat by Pulse 97 96 96 Oximetry 05/28/22 05/28/22 05/28/22 06:45 07:00 07:15 Temperature Pulse Rate 114 H 117 H 109 H Pulse Rate [ From Monitor] Respiratory 14 20 13 Rate Blood Pressure 108/48 92/46 112/58 O2 Sat by Pulse 95 95 95 Oximetry 05/28/22 05/28/22 05/28/22 07:16 07:31 07:44 Temperature 98.9 F Pulse Rate 99 H 110 H Pulse Rate [ From Monitor] Respiratory 13 Rate Blood Pressure 112/58 O2 Sat by Pulse 96 Oximetry 05/28/22 05/28/22 05/28/22 07:45 07:48 07:59 Temperature Pulse Rate 111 H Pulse Rate [ 110 H From Monitor] Respiratory 13 16 Rate Blood Pressure 112/58 O2 Sat by Pulse 97 97 97 Oximetry 05/28/22 08:00 Temperature Pulse Rate 108 H Pulse Rate [ From Monitor] Respiratory 14 Rate Blood Pressure 116/69 O2 Sat by Pulse 98 Oximetry CBC and BMP: 05/29/22 05:10 05/29/22 05:10 ABG, PT/INR, D-dimer: PT/INR, D-dimer PT 14.8 Sec. (12.2-14.9) 05/26/22 12:51 INR 1.04 (0.87-1.13) 05/26/22 12:51 Abnormal lab findings: Abnormal Labs 05/26/22 05/26/22 05/26/22 02:15 12:51 12:51 MCH 27 L RDW 17.0 H Plt Count Seg Neuts % (Manual) 91.0 H Lymphocytes % (Manual) 2.0 L Seg Neutrophils # Man 8.1 H Lymphocytes # (Manual) 0.2 L Sodium Potassium Carbon Dioxide 20 L BUN 72 H Creatinine 4.0 H Glucose POC Glucose Calcium Phosphorus 4.70 H Magnesium Ammonia Total Creatine Kinase 262 H NT-Pro-B Natriuret Pep Total Protein Albumin 2.9 L Urine WBC (Auto) 20.0 H Urine Creatinine Valproic Acid 05/26/22 05/26/22 05/26/22 12:51 12:51 12:51 MCH RDW Plt Count Seg Neuts % (Manual) Lymphocytes % (Manual) Seg Neutrophils # Man Lymphocytes # (Manual) Sodium Potassium Carbon Dioxide BUN Creatinine Glucose POC Glucose Calcium Phosphorus Magnesium Ammonia 19.0 L Total Creatine Kinase NT-Pro-B Natriuret Pep 2054 H Total Protein Albumin Urine WBC (Auto) Urine Creatinine Valproic Acid 45.5 L 05/27/22 05/27/22 05/27/22 06:13 06:13 15:13 MCH 27 L RDW 16.9 H Plt Count 485 H Seg Neuts % (Manual) 89.0 H Lymphocytes % (Manual) 4.0 L Seg Neutrophils # Man 9.1 H Lymphocytes # (Manual) 0.4 L Sodium 136 L Potassium Carbon Dioxide 20 L BUN 57 H Creatinine 2.2 H Glucose 208 H POC Glucose Calcium 8.0 L Phosphorus Magnesium Ammonia Total Creatine Kinase NT-Pro-B Natriuret Pep Total Protein 5.3 L D Albumin 1.9 L Urine WBC (Auto) Urine Creatinine 92.7 H Valproic Acid 05/27/22 05/27/22 05/28/22 15:14 18:31 00:19 MCH RDW Plt Count Seg Neuts % (Manual) Lymphocytes % (Manual) Seg Neutrophils # Man Lymphocytes # (Manual) Sodium Potassium Carbon Dioxide BUN Creatinine Glucose POC Glucose 155 H 135 H Calcium Phosphorus Magnesium Ammonia Total Creatine Kinase NT-Pro-B Natriuret Pep Total Protein Albumin Urine WBC (Auto) 26.0 H Urine Creatinine Valproic Acid 05/28/22 05/28/22 03:49 03:49 MCH 27 L RDW 17.3 H Plt Count Seg Neuts % (Manual) Lymphocytes % (Manual) Seg Neutrophils # Man Lymphocytes # (Manual) Sodium 134 L Potassium 3.2 L Carbon Dioxide 20 L BUN 49 H Creatinine 1.4 H Glucose 190 H POC Glucose Calcium 8.0 L Phosphorus Magnesium 2.40 H Ammonia Total Creatine Kinase NT-Pro-B Natriuret Pep Total Protein Albumin Urine WBC (Auto) Urine Creatinine Valproic Acid
--- NOTE | 2022-05-28 09:09 | Progress Note ---
Assessment and Plan Assessment and plan: neuro: acute pain neuro intact maew; follows commands pain well controlled PRN pain meds on home psych meds pt reports risperodone, depakote and clonazepam but then clonazepam listed as allergy pharm aware will need to clarify pt/ot/st will be needed note pt had fall prior to admit no injuries noted or reported CV afib no pressors normotensive afib 90-100 amio fixed dose 0.5 until she can take po Resp pulm insufficiency NC PRN needs aggressive pulm hygiene GI sp perf viscous and ex lap 7-[address] Amanda hypoactive BS no flatus/BM post op NG management per surgery pepcid hypok; peripheral edema intake/output generalized edma trend and replace electrolytes IV PRN K this AM 3.2 given 40 meqIV D5 1/2 cut to 100 ml - edema on exam and getting xrtra volume with K was net neg 380 ml over the last 24 hours but is edematous on exam am labs ordered Heme-nap hgb stable no bleeding VTE ROLANDO ID- sp perf viscous cefipime and zosyn afebrile trend WBC covid neg Endo - stress hyperglycemia; obese BG control PRN PLAN TRANSFER TO FLOOR STAFFED WITH DR RATLIFF/TREASURE/LINDA Disposition Plan: transfer to telemetry today; staffed with Dr Ratliff/Treasure and Linda Total Time Spent with Patient (Minutes): 60 min non critical care History Interval history: no acute events overnight Hospitalist Physical - Constitutional Vitals: Temp Pulse Resp BP Pulse Ox 98.9 F 108 H 14 116/69 98 05/28/22 07:16 05/28/22 08:00 05/28/22 08:00 05/28/22 08:00 05/28/22 08:00 General appearance: Present: no acute distress, well-nourished, obese - EENT Eyes: Present: PERRL, EOM intact ENT: hearing intact, clear oral mucosa - Neck Neck: Present: supple, normal ROM - Respiratory Respiratory effort: normal - Cardiovascular Heart Sounds: Present: S1 & S2 - Extremities Extremities: no ischemia Extremity abnormal: edema Peripheral Pulses: within normal limits - Abdominal General gastrointestinal: soft, tender, hypoactive bowel sounds - Integumentary Integumentary: Present: clear, warm, dry - Psychiatric Psychiatric: appropriate mood/affect - Neurologic Neurologic: CNII-XII intact - Allied Health Allied health notes reviewed: nursing, social work HEART Score - HEART Score Troponin: Troponin T < 0.010 ng/mL (0.00-0.029) 05/26/22 12:51 Results - Labs CBC & Chem 7: 05/28/22 03:49 05/28/22 03:49 Labs: Laboratory Last Values WBC 8.5 K/mm3 (4.5-11.0) 05/28/22 03:49 RBC 4.21 M/mm3 (3.65-5.03) 05/28/22 03:49 Hgb 11.5 gm/dl (10.1-14.3) 05/28/22 03:49 Hct 35.3 % (30.3-42.9) 05/28/22 03:49 MCV 84 fl (79-97) 05/28/22 03:49 MCH 27 pg (28-32) L 05/28/22 03:49 MCHC 33 % (30-34) 05/28/22 03:49 RDW 17.3 % (13.2-15.2) H 05/28/22 03:49 Plt Count 352 K/mm3 (140-440) 05/28/22 03:49 Add Manual Diff Complete 05/27/22 06:13 Total Counted 100 05/27/22 06:13 Seg Neutrophils % Senior Technical Architect 05/27/22 06:13 Seg Neuts % (Manual) 89.0 % (40.0-70.0) H 05/27/22 06:13 Band Neutrophils % 3.0 % 05/27/22 06:13 Lymphocytes % (Manual) 4.0 % (13.4-35.0) L 05/27/22 06:13 Reactive Lymphs % (Man) 1.0 % 05/27/22 06:13 Monocytes % (Manual) 2.0 % (0.0-7.3) 05/27/22 06:13 Eosinophils % (Manual) 0 % (0.0-4.3) 05/27/22 06:13 Basophils % (Manual) 0 % (0.0-1.8) 05/27/22 06:13 Metamyelocytes % 1.0 % 05/27/22 06:13 Myelocytes % 0 % 05/27/22 06:13 Promyelocytes % 0 % 05/27/22 06:13 Blast Cells % 0 % 05/27/22 06:13 Nucleated RBC % Not Reportable 05/27/22 06:13 Seg Neutrophils # Man 9.1 K/mm3 (1.8-7.7) H 05/27/22 06:13 Band Neutrophils # 0.3 K/mm3 05/27/22 06:13 Lymphocytes # (Manual) 0.4 K/mm3 (1.2-5.4) L 05/27/22 06:13 Abs React Lymphs (Man) 0.1 K/mm3 05/27/22 06:13 Monocytes # (Manual) 0.2 K/mm3 (0.0-0.8) 05/27/22 06:13 Eosinophils # (Manual) 0.0 K/mm3 (0.0-0.4) 05/27/22 06:13 Basophils # (Manual) 0.0 K/mm3 (0.0-0.1) 05/27/22 06:13 Metamyelocytes # 0.1 K/mm3 05/27/22 06:13 Myelocytes # 0.0 K/mm3 05/27/22 06:13 Promyelocytes # 0.0 K/mm3 05/27/22 06:13 Blast Cells # 0.0 K/mm3 05/27/22 06:13 WBC Morphology Not Reportable 05/27/22 06:13 Hypersegmented Neuts Not Reportable 05/27/22 06:13 Hyposegmented Neuts Not Reportable 05/27/22 06:13 Hypogranular Neuts Not Reportable 05/27/22 06:13 Smudge Cells Not Reportable 05/27/22 06:13 Toxic Granulation Not Reportable 05/27/22 06:13 Toxic Vacuolation Not Reportable 05/27/22 06:13 Dohle Bodies Not Reportable 05/27/22 06:13 Pelger-Huet Anomaly Not Reportable 05/27/22 06:13 Yesica Rods Not Reportable 05/27/22 06:13 Platelet Estimate Consistent w auto 05/27/22 06:13 Clumped Platelets Few 05/27/22 06:13 Plt Clumps, EDTA Not Reportable 05/27/22 06:13 Large Platelets Rare 05/27/22 06:13 Giant Platelets Not Reportable 05/27/22 06:13 Platelet Satelliting Not Reportable 05/27/22 06:13 Plt Morphology Comment Not Reportable 05/27/22 06:13 RBC Morphology Not Reportable 05/27/22 06:13 Dimorphic RBCs Not Reportable 05/27/22 06:13 Polychromasia Not Reportable 05/27/22 06:13 Hypochromasia Not Reportable 05/27/22 06:13 Poikilocytosis Not Reportable 05/27/22 06:13 Anisocytosis Not Reportable 05/27/22 06:13 Microcytosis Not Reportable 05/27/22 06:13 Macrocytosis Not Reportable 05/27/22 06:13 Spherocytes Not Reportable 05/27/22 06:13 Pappenheimer Bodies Not Reportable 05/27/22 06:13 Sickle Cells Not Reportable 05/27/22 06:13 Target Cells Not Reportable 05/27/22 06:13 Tear Drop Cells Not Reportable 05/27/22 06:13 Ovalocytes Not Reportable 05/27/22 06:13 Helmet Cells Not Reportable 05/27/22 06:13 Lr-Delphos Bodies Not Reportable 05/27/22 06:13 [place] Rings Not Reportable 05/27/22 06:13 [place] Cells 1+ 05/27/22 06:13 Bite Cells Not Reportable 05/27/22 06:13 Crenated Cell Not Reportable 05/27/22 06:13 Elliptocytes Few 05/27/22 06:13 Acanthocytes (Spur) Not Reportable 05/27/22 06:13 Rouleaux Not Reportable 05/27/22 06:13 Hemoglobin C Crystals Not Reportable 05/27/22 06:13 Schistocytes Not Reportable 05/27/22 06:13 Malaria parasites Not Reportable 05/27/22 06:13 Edd Bodies Not Reportable 05/27/22 06:13 Hem Pathologist Commnt No 05/27/22 06:13 PT 14.8 Sec. (12.2-14.9) 05/26/22 12:51 INR 1.04 (0.87-1.13) 05/26/22 12:51 Sodium 134 mmol/L (137-145) L 05/28/22 03:49 Potassium 3.2 mmol/L (3.6-5.0) L 05/28/22 03:49 Chloride 102.8 mmol/L (98-107) 05/28/22 03:49 Carbon Dioxide 20 mmol/L (22-30) L 05/28/22 03:49 Anion Gap 14 mmol/L 05/28/22 03:49 BUN 49 mg/dL (7-17) H 05/28/22 03:49 Creatinine 1.4 mg/dL (0.6-1.2) H 05/28/22 03:49 Estimated GFR 37 ml/min 05/28/22 03:49 BUN/Creatinine Ratio 35 % 05/28/22 03:49 Glucose 190 mg/dL (65-100) H 05/28/22 03:49 POC Glucose 135 mg/dL (70-105) H 05/28/22 00:19 Lactic Acid 1.80 mmol/L (0.7-2.0) 05/26/22 12:51 Calcium 8.0 mg/dL (8.4-10.2) L 05/28/22 03:49 Phosphorus 3.50 mg/dL (2.5-4.5) 05/28/22 03:49 Magnesium 2.40 mg/dL (1.7-2.3) H 05/28/22 03:49 Total Bilirubin 0.40 mg/dL (0.1-1.2) 05/27/22 06:13 AST 19 units/L (5-40) 05/27/22 06:13 ALT 11 units/L (7-56) 05/27/22 06:13 Alkaline Phosphatase 46 units/L (35-129) 05/27/22 06:13 Ammonia 19.0 umol/L (25-60) L 05/26/22 12:51 Total Creatine Kinase 262 units/L (30-135) H 05/26/22 12:51 Troponin T < 0.010 ng/mL (0.00-0.029) 05/26/22 12:51 NT-Pro-B Natriuret Pep 2054 pg/mL (0-900) H 05/26/22 12:51 Total Protein 5.3 g/dL (6.3-8.2) L D 05/27/22 06:13 Albumin 1.9 g/dL (3.9-5) L 05/27/22 06:13 Albumin/Globulin Ratio 0.6 % 05/27/22 06:13 TSH 2.890 mlU/mL (0.270-4.200) 05/26/22 12:51 Urine Color Yellow (Yellow) 05/27/22 15:14 Urine Turbidity Clear (Clear) 05/27/22 15:14 Urine pH 5.0 (5.0-7.0) 05/27/22 15:14 Ur Specific [place] 1.020 (1.003-1.030) 05/27/22 15:14 Urine Protein <15 mg/dl mg/dL (Negative) 05/27/22 15:14 Urine Glucose (UA) Neg mg/dL (Negative) 05/27/22 15:14 Urine Ketones Neg mg/dL (Negative) 05/27/22 15:14 Urine Blood Neg (Negative) 05/27/22 15:14 Urine Nitrite Neg (Negative) 05/27/22 15:14 Urine Bilirubin Neg (Negative) 05/27/22 15:14 Urine Urobilinogen < 2.0 mg/dL (<2.0) 05/27/22 15:14 Ur Leukocyte Esterase Neg (Negative) 05/27/22 15:14 Urine WBC (Auto) 26.0 /HPF (0.0-6.0) H 05/27/22 15:14 Urine RBC (Auto) 5.0 /HPF (0.0-6.0) 05/27/22 15:14 U Epithel Cells (Auto) < 1.0 /HPF (0-13.0) 05/27/22 15:14 Urine Bacteria (Auto) 1+ /HPF (Negative) 05/27/22 15:14 Ur Transition Epith Cell 2 /HPF 05/26/22 02:15 Urine Mucus Few /HPF 05/27/22 15:14 Urine Creatinine 92.7 mg/dL (0.1-20.0) H 05/27/22 15:13 Urine Sodium 10 mmol/L 05/27/22 19:00 Valproic Acid 45.5 ug/mL (50-100) L 05/26/22 12:51 Coronavirus (PCR) Negative (Negative) 05/27/22 11:46 Blood Type A POSITIVE 05/26/22 15:06 Antibody Screen Negative 05/26/22 15:06 Microbiology: Microbiology 05/26/22 12:51 Peripheral/Venous Blood Culture - Preliminary NO GROWTH AFTER 24 HOURS 05/26/22 12:51 Peripheral/Venous Blood Culture - Preliminary NO GROWTH AFTER 24 HOURS 05/26/22 18:24 Peritioneal Dialysate Peritoneal Dialysate Culture - Preliminary Gram Negative Vince Marrero/IV: Voiding Method External Female Catheter Active Medications - Current Medications Current Medications: Generic Name Dose Route Start Last Admin Trade Name Freq PRN Reason Stop Dose Admin Acetaminophen 650 mg 05/26/22 16:11 Acetaminophen 650 Mg Rect Supp W[place] Q6H PRN Pain MILD(1-3)/Fever >100.5/GE Famotidine 20 mg 05/27/22 22:00 05/27/22 21:56 Famotidine 20 Mg/2 Ml Inj IV 20 mg BID ROLANDO Administration Heparin Sodium (Porcine) 5,000 unit 05/27/22 22:00 05/28/22 06:54 Heparin 5,000 Unit/1 Ml Vial SUB-Q 5,000 unit Q8HR ROLANDO Administration Hydromorphone HCl 0.5 mg 05/26/22 16:14 Hydromorphone 0.5 Mg/0.5 Ml Inj IV Q3H PRN Pain , Severe (7-10) Amiodarone HCl 900 mg/ 500 mls @ 33.333 mls/hr 05/26/22 23:00 05/27/22 20:06 Dextrose IV 0.5 mg/min DIRECT ROLANDO 16.667 mls/hr Administration Protocol 1 MG/MIN Phenylephrine HCl 100 mg/ 100 mls @ 3 mls/hr 05/26/22 22:15 05/27/22 08:45 Sodium Chloride IV 0 mcg/min TITR ROLANDO 0 mls/hr Titration Protocol 50 MCG/MIN Dextrose/Sodium Chloride 1,000 mls @ 125 mls/hr 05/26/22 23:46 05/27/22 20:07 D5/0.45ns IV 125 mls/hr DIRECT ROLANDO Administration Metronidazole 500 mg in 100 mls @ 100 mls/hr 05/27/22 13:00 05/28/22 05:00 Flagyl 500 Mg/100 Ml IV 100 mls/hr Q8H ROLANDO Administration Protocol Cefepime HCl 2 gm in 100 mls @ 200 mls/hr 05/28/22 10:00 Cefepime/Ns 2 Gm/100 Ml IV Q12H ROLANDO Morphine Sulfate 2 mg 05/26/22 16:14 05/28/22 04:16 Morphine 2 Mg/1 Ml Inj IV 2 mg Q4H PRN Administration Pain, Moderate (4-6) Morphine Sulfate 4 mg 05/26/22 16:16 Morphine 4 Mg/1 Ml Inj IV Q4H PRN Pain , Severe (7-10) Oxycodone/Acetaminophen 1 tab 05/26/22 16:16 Oxycodone /Acetaminophen 5-325mg Tab PO Q6H PRN Pain, Moderate (4-6) Sodium Chloride 10 ml 05/26/22 22:00 05/27/22 21:57 Sodium Chloride 0.9% 10 Ml Flush Syringe IV Not Given BID ROLANDO Sodium Chloride 10 ml 05/26/22 16:11 Sodium Chloride 0.9% 10 Ml Flush Syringe IV PRN PRN LINE FLUSH will need home psych meds when taking po Nutrition/Malnutrition Assess - Dietary Evaluation Nutrition/Malnutrition Findings: npo PER gi
[2022-05-28] MEDS: FAMOTIDINE 20 MG/2 ML INJ IV SCH ×2 (10:26→21:39)
[2022-05-28] MEDS: CEFEPIME/NS 2 GM/100 ML 2 GM/100 ML BAG IV SCH ×2 (10:26→21:40)
--- NOTE | 2022-05-28 10:48 | Progress Note ---
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 Patient is afebrile and stable. We will continue antibiotics and NG tube suction until showing signs of return of bowel function. Pt can have sparing ice chips. Subjective Date of service: 05/28/22 Narrative: No acute events overnight. Patient did have episodes of asymptomatic atrial fibrillation. Today patient is awake and alert and says that she feels well. Denies passing any gas or abdominal pain. Objective Vital Signs - 12hr 05/27/22 05/27/22 05/27/22 23:00 23:15 23:21 Temperature Pulse Rate 104 H 107 H 107 H Pulse Rate [ From Monitor] Respiratory 16 15 15 Rate Blood Pressure 108/46 108/46 108/46 O2 Sat by Pulse 96 96 97 Oximetry 05/27/22 05/27/22 05/28/22 23:31 23:45 00:00 Temperature 97.4 F L Pulse Rate 114 H 93 H 106 H Pulse Rate [ 104 H From Monitor] Respiratory 15 15 18 Rate Blood Pressure 108/46 108/46 87/51 O2 Sat by Pulse 97 96 97 Oximetry 05/28/22 05/28/22 05/28/22 00:15 00:31 00:45 Temperature Pulse Rate 108 H 123 H 117 H Pulse Rate [ From Monitor] Respiratory 18 21 18 Rate Blood Pressure 108/46 108/57 108/57 O2 Sat by Pulse 95 94 95 Oximetry 05/28/22 05/28/22 05/28/22 01:00 01:15 01:31 Temperature Pulse Rate 129 H 119 H 116 H Pulse Rate [ From Monitor] Respiratory 20 19 17 Rate Blood Pressure 98/48 98/48 98/48 O2 Sat by Pulse 96 97 96 Oximetry 05/28/22 05/28/22 05/28/22 01:45 02:00 02:15 Temperature Pulse Rate 102 H 113 H 108 H Pulse Rate [ From Monitor] Respiratory 14 14 16 Rate Blood Pressure 98/48 92/52 92/52 O2 Sat by Pulse 96 96 96 Oximetry 05/28/22 05/28/22 05/28/22 02:31 02:45 03:00 Temperature Pulse Rate 112 H 113 H 117 H Pulse Rate [ From Monitor] Respiratory 23 19 22 Rate Blood Pressure 92/52 92/52 104/56 O2 Sat by Pulse 95 96 96 Oximetry 05/28/22 05/28/22 05/28/22 03:15 03:31 03:45 Temperature Pulse Rate 125 H 107 H 108 H Pulse Rate [ From Monitor] Respiratory 20 18 24 Rate Blood Pressure 104/56 104/56 104/56 O2 Sat by Pulse 97 96 96 Oximetry 05/28/22 05/28/22 05/28/22 04:00 04:15 04:16 Temperature 97.5 F L Pulse Rate 114 H 121 H Pulse Rate [ 104 H From Monitor] Respiratory 18 19 18 Rate Blood Pressure 109/62 109/62 O2 Sat by Pulse 97 97 Oximetry 05/28/22 05/28/22 05/28/22 04:31 04:45 05:00 Temperature Pulse Rate 122 H 119 H 119 H Pulse Rate [ From Monitor] Respiratory 23 14 19 Rate Blood Pressure 109/62 109/62 119/53 O2 Sat by Pulse 96 96 96 Oximetry 05/28/22 05/28/22 05/28/22 05:15 05:31 05:45 Temperature Pulse Rate 121 H 108 H 109 H Pulse Rate [ From Monitor] Respiratory 13 13 16 Rate Blood Pressure 109/62 109/62 109/62 O2 Sat by Pulse 97 97 97 Oximetry 05/28/22 05/28/22 05/28/22 06:00 06:15 06:31 Temperature Pulse Rate 101 H 105 H 116 H Pulse Rate [ From Monitor] Respiratory 14 19 24 Rate Blood Pressure 108/48 108/48 108/48 O2 Sat by Pulse 97 96 96 Oximetry 05/28/22 05/28/22 05/28/22 06:45 07:00 07:15 Temperature Pulse Rate 114 H 117 H 109 H Pulse Rate [ From Monitor] Respiratory 14 20 13 Rate Blood Pressure 108/48 92/46 112/58 O2 Sat by Pulse 95 95 95 Oximetry 05/28/22 05/28/22 05/28/22 07:16 07:31 07:44 Temperature 98.9 F Pulse Rate 99 H 110 H Pulse Rate [ From Monitor] Respiratory 13 Rate Blood Pressure 112/58 O2 Sat by Pulse 96 Oximetry 05/28/22 05/28/22 05/28/22 07:45 07:48 07:59 Temperature Pulse Rate 111 H Pulse Rate [ 110 H From Monitor] Respiratory 13 16 Rate Blood Pressure 112/58 O2 Sat by Pulse 97 97 97 Oximetry 05/28/22 05/28/22 05/28/22 08:00 08:15 08:31 Temperature Pulse Rate 108 H 109 H 113 H Pulse Rate [ From Monitor] Respiratory 14 14 18 Rate Blood Pressure 116/69 116/69 116/69 O2 Sat by Pulse 98 94 97 Oximetry 05/28/22 05/28/22 05/28/22 08:45 09:00 09:15 Temperature Pulse Rate 105 H 120 H 98 H Pulse Rate [ From Monitor] Respiratory 14 26 H 15 Rate Blood Pressure 116/69 110/62 110/62 O2 Sat by Pulse 96 97 97 Oximetry 05/28/22 05/28/22 05/28/22 09:31 09:45 10:01 Temperature Pulse Rate 97 H 105 H 123 H Pulse Rate [ From Monitor] Respiratory 17 17 26 H Rate Blood Pressure 110/62 110/62 110/62 O2 Sat by Pulse 96 96 95 Oximetry - General physical appearance well developed, no distress, no pain - Eyes PERRL - ENT no hearing loss - Respiratory normal expansion, normal respiratory effort - Abdomen soft, not distended, other (Midline dressing clean dry intact, probably tender palpation, BREONNA drain serosanguineous) - Labs 05/28/22 03:49 05/28/22 03:49 Diabetes panel 05/28/22 Range/Units 03:49 Sodium 134 L (137-145) mmol/L Potassium 3.2 L (3.6-5.0) mmol/L Chloride 102.8 (98-107) mmol/L Carbon Dioxide 20 L (22-30) mmol/L BUN 49 H (7-17) mg/dL Creatinine 1.4 H (0.6-1.2) mg/dL Glucose 190 H (65-100) mg/dL Calcium 8.0 L (8.4-10.2) mg/dL Calcium panel 05/28/22 Range/Units 03:49 Calcium 8.0 L (8.4-10.2) mg/dL Phosphorus 3.50 (2.5-4.5) mg/dL Pituitary panel 05/28/22 Range/Units 03:49 Sodium 134 L (137-145) mmol/L Potassium 3.2 L (3.6-5.0) mmol/L Chloride 102.8 (98-107) mmol/L Carbon Dioxide 20 L (22-30) mmol/L BUN 49 H (7-17) mg/dL Creatinine 1.4 H (0.6-1.2) mg/dL Glucose 190 H (65-100) mg/dL Calcium 8.0 L (8.4-10.2) mg/dL Adrenal panel 05/28/22 Range/Units 03:49 Sodium 134 L (137-145) mmol/L Potassium 3.2 L (3.6-5.0) mmol/L Chloride 102.8 (98-107) mmol/L Carbon Dioxide 20 L (22-30) mmol/L BUN 49 H (7-17) mg/dL Creatinine 1.4 H (0.6-1.2) mg/dL Glucose 190 H (65-100) mg/dL Calcium 8.0 L (8.4-10.2) mg/dL
[2022-05-28] MEDS ORDERED: HALOPERIDOL LACTATE 5 MG/1 ML INJ IV PRN (10:52)
--- NOTE | 2022-05-28 11:41 | Progress Note ---
Assessment and Plan Patient is a 76-year-old female with vascular dementia with complaint of 1 week having abdominal pain with some loose stools. But still eating. Came to the hospital after a fall. An dfound to have perforated abdominal viscus. Patient was taken to surgery and postoperatively went to A. fib. Afib w/ RVR TYRESE Hypotension Perforated abdominal viscus-surgery following Scalp laceration Echo 05/26/2022-EF 50 to 55%. Right ventricle is mildly dilated. Right ventricle is mildly hypokinetic. Left atrium is normal in size. Trace aortic regurgitation. Trace mitral regurgitation. Trace tricuspid regurgitation. Trace pulmonic regurgitation Plan: Telemetry reviewed patient still in A. fib rate 110s to 120s Continue IV amiodarone Continue IV fluids No anticoagulation at this time due to recent surgery Echo results noted above Plan of care discussed with patient's son who verbalized understanding and acknowledgment Patient seen in conjunction with Dr. Youngblood who agrees with this plan of care - Patient Problems (1) TYRESE (acute kidney injury) Current Visit: Yes Status: Acute (2) Atrial fibrillation Current Visit: Yes Status: Acute Qualifiers: Atrial fibrillation type: unspecified Qualified Code(s): I48.91 - Unspecified atrial fibrillation (3) Hypotension Current Visit: Yes Status: Acute (4) Perforated abdominal viscus Current Visit: Yes Status: Acute (5) Scalp laceration Current Visit: Yes Status: Acute Qualifiers: Encounter type: initial encounter Qualified Code(s): S01.01XA - Laceration without foreign body of scalp, initial encounter Subjective Date of service: 05/28/22 Principal diagnosis: A. fib, perforated abdominal viscus Interval history: Patient sitting on side of bed receiving PT A. fib 120s Objective Vital Signs Temp Pulse Pulse Resp BP Pulse Ox 05/28/22 11:15 102 H 18 113/75 96 05/28/22 11:00 120 H 13 113/75 93 05/28/22 10:45 99 H 18 110/65 97 05/28/22 10:31 104 H 15 110/65 95 05/28/22 10:15 105 H 17 110/65 93 05/28/22 10:01 123 H 26 H 110/62 95 05/28/22 09:45 105 H 17 110/62 96 05/28/22 09:31 97 H 17 110/62 96 05/28/22 09:15 98 H 15 110/62 97 05/28/22 09:00 120 H 26 H 110/62 97 05/28/22 08:45 105 H 14 116/69 96 05/28/22 08:31 113 H 18 116/69 97 05/28/22 08:15 109 H 14 116/69 94 05/28/22 08:00 108 H 14 116/69 98 05/28/22 07:59 110 H 16 97 05/28/22 07:48 97 05/28/22 07:45 111 H 13 112/58 97 05/28/22 07:44 110 H 05/28/22 07:31 99 H 13 112/58 96 05/28/22 07:16 98.9 F 05/28/22 07:15 109 H 13 112/58 95 05/28/22 07:00 117 H 20 92/46 95 05/28/22 06:45 114 H 14 108/48 95 05/28/22 06:31 116 H 24 108/48 96 05/28/22 06:15 105 H 19 108/48 96 05/28/22 06:00 101 H 14 108/48 97 05/28/22 05:45 109 H 16 109/62 97 05/28/22 05:31 108 H 13 109/62 97 05/28/22 05:15 121 H 13 109/62 97 05/28/22 05:00 119 H 19 119/53 96 05/28/22 04:45 119 H 14 109/62 96 05/28/22 04:31 122 H 23 109/62 96 05/28/22 04:16 18 05/28/22 04:15 121 H 19 109/62 97 05/28/22 04:00 97.5 F L 114 H 104 H 18 109/62 97 05/28/22 03:45 108 H 24 104/56 96 05/28/22 03:31 107 H 18 104/56 96 05/28/22 03:15 125 H 20 104/56 97 05/28/22 03:00 117 H 22 104/56 96 05/28/22 02:45 113 H 19 92/52 96 05/28/22 02:31 112 H 23 92/52 95 05/28/22 02:15 108 H 16 92/52 96 05/28/22 02:00 113 H 14 92/52 96 07/11/22 01:45 102 H 14 98/48 96 05/28/22 01:31 116 H 17 98/48 96 05/28/22 01:15 119 H 19 98/48 97 05/28/22 01:00 129 H 20 98/48 96 05/28/22 00:45 117 H 18 108/57 95 05/28/22 00:31 123 H 21 108/57 94 05/28/22 00:15 108 H 18 108/46 95 05/28/22 00:00 97.4 F L 106 H 104 H 18 87/51 97 05/27/22 23:45 93 H 15 108/46 96 05/27/22 23:31 114 H 15 108/46 97 05/27/22 23:21 107 H 15 108/46 97 05/27/22 23:15 107 H 15 108/46 96 05/27/22 23:00 104 H 16 108/46 96 05/27/22 22:45 106 H 17 104/53 95 05/27/22 22:31 116 H 20 104/53 97 05/27/22 22:15 118 H 20 104/53 95 05/27/22 22:01 123 H 17 104/53 96 05/27/22 22:00 95 05/27/22 21:45 115 H 19 89/45 97 05/27/22 21:31 122 H 20 89/45 96 05/27/22 21:15 104 H 15 89/45 98 05/27/22 21:01 98 H 16 89/45 96 05/27/22 20:45 122 H 24 119/60 94 05/27/22 20:31 117 H 19 119/60 93 05/27/22 20:15 110 H 20 119/60 95 05/27/22 20:00 97.6 F 107 H 110 H 17 120/63 96 05/27/22 19:45 117 H 23 106/51 96 05/27/22 19:30 103 H 24 106/51 96 05/27/22 19:15 110 H 19 96/51 96 05/27/22 19:00 106 H 17 111/69 96 05/27/22 18:45 111 H 17 101/66 96 05/27/22 18:30 102 H 19 102/59 96 05/27/22 18:15 102 H 17 86/47 96 05/27/22 18:00 122 H 21 90/58 95 05/27/22 17:45 105 H 19 100/52 96 05/27/22 17:30 107 H 16 101/51 95 05/27/22 17:16 98.6 F 05/27/22 17:15 114 H 19 111/66 96 05/27/22 17:00 108 H 22 102/71 95 05/27/22 16:45 100 H 22 113/70 95 05/27/22 16:30 115 H 24 106/66 98 05/27/22 16:15 91 H 18 104/60 98 05/27/22 16:00 112 H 108 H 18 104/67 97 05/27/22 15:45 98 H 15 105/58 98 05/27/22 15:30 122 H 16 96/58 98 05/27/22 15:15 94 H 17 96/64 97 05/27/22 15:01 117 H 22 97/70 97 05/27/22 14:45 115 H 20 91/67 95 05/27/22 14:30 110 H 19 96/66 96 05/27/22 14:15 111 H 19 100/59 95 05/27/22 14:00 99 H 18 95/56 93 05/27/22 13:45 108 H 17 92/56 93 05/27/22 13:43 17 05/27/22 13:30 100 H 19 96/59 93 05/27/22 13:15 106 H 22 97/61 97 05/27/22 13:00 106 H 17 92/59 98 05/27/22 12:45 103 H 18 97/59 97 05/27/22 12:43 18 05/27/22 12:30 111 H 16 108/65 97 05/27/22 12:22 98.9 F 05/27/22 12:15 111 H 20 102/61 95 05/27/22 12:00 100 H 110 H 16 96/60 98 05/27/22 11:45 99 H 19 103/59 99 - Physical Examination General: No Apparent Distress HEENT: Positive: PERRL, Mucus Membranes Moist Neck: Positive: neck supple, trachea midline Cardiac: Positive: irregularly irregular Lungs: Positive: Normal Breath Sounds Neuro: Positive: Grossly Intact Abdomen: Positive: Soft, Tender, Other (Surgical dressings) Skin: Positive: Clear Incision: Cardiac Cath Site Musculoskeletal: No Pain, Normal Range of Motion Extremities: Present: normal. Absent: edema - Labs and Meds CBC 05/28/22 Range/Units 03:49 WBC 8.5 (4.5-11.0) K/mm3 RBC 4.21 (3.65-5.03) M/mm3 Hgb 11.5 (10.1-14.3) gm/dl Hct 35.3 (30.3-42.9) % Plt Count 352 (140-440) K/mm3 Comprehensive Metabolic Panel 05/28/22 Range/Units 03:49 Sodium 134 L (137-145) mmol/L Potassium 3.2 L (3.6-5.0) mmol/L Chloride 102.8 (98-107) mmol/L Carbon Dioxide 20 L (22-30) mmol/L BUN 49 H (7-17) mg/dL Creatinine 1.4 H (0.6-1.2) mg/dL Glucose 190 H (65-100) mg/dL Calcium 8.0 L (8.4-10.2) mg/dL - Imaging and Cardiology Echo: report reviewed - Telemetry EKG Rhythm: Atrial Fibrillation - EKG Supraventricular dysrhythmia: atrial fibrillation
[2022-05-28] MEDS: VALPROATE SODIUM 500 MG in SODIUM CHLORIDE 0.9% 100 ML IV SCH ×2 (12:41→21:39)
[2022-05-28] MEDS: POTASSIUM CHLORIDE 10 MEQ 10 MEQ/100 ML BAG IV SCH ×4 (12:41→16:45)
[2022-05-28] MEDS: D5W/0.45% NACL 1,000 ML IV SCH (16:16)
[2022-05-29] MEDS: metroNIDAZOLE/NS 500 MG/100 ML 500 MG/100 ML BAG IV SCH ×3 (05:00→21:43)
[2022-05-29 05:29] LABS: Hematocrit 33.9 % (30.3-42.9); Hemoglobin 10.8 gm/dl (10.1-14.3); Mean Corpuscular HGB Conc 32 % (30-34); Mean Corpuscular Volume 84 fl (79-97); Platelet Count 325 K/mm3 (140-440); Red Blood Count 4.03 M/mm3 (3.65-5.03)
[2022-05-29 05:49] LABS: BUN/Creatinine Ratio 40; Blood Urea Nitrogen 36 mg/dL (7-17); Calcium 8.2 mg/dL (8.4-10.2); Hemolysis Index 4
[2022-05-29] MEDS: D5W/0.45% NACL 1,000 ML IV SCH ×2 (06:23→18:37)
[2022-05-29] MEDS: HEPARIN 5,000 UNIT/1 ML VIAL SUB-Q SCH ×3 (06:24→21:43)
[2022-05-29] MEDS: FAMOTIDINE 20 MG/2 ML INJ IV SCH ×2 (09:58→21:43)
[2022-05-29] MEDS: VALPROATE SODIUM 500 MG in SODIUM CHLORIDE 0.9% 100 ML IV SCH ×2 (09:58→21:50)
[2022-05-29] MEDS: MORPHINE 2 MG/1 ML INJ IV PRN (09:58)
[2022-05-29] MEDS: CEFEPIME/NS 2 GM/100 ML 2 GM/100 ML BAG IV SCH ×2 (09:59→21:53)
[2022-05-29] MEDS: POTASSIUM CHLORIDE 10 MEQ 10 MEQ/100 ML BAG IV SCH ×2 (09:59→12:40)
--- NOTE | 2022-05-29 10:47 | Progress Note ---
Assessment and Plan Patient is a 76-year-old female with vascular dementia with complaint of 1 week having abdominal pain with some loose stools. But still eating. Came to the hospital after a fall. An dfound to have perforated abdominal viscus. Patient was taken to surgery and postoperatively went to A. fib. Afib w/ RVR TYRESE Hypotension - resolved Perforated abdominal viscus-surgery following Scalp laceration Echo 05/26/2022-EF 50 to 55%. Right ventricle is mildly dilated. Right ventricle is mildly hypokinetic. Left atrium is normal in size. Trace aortic regurgitation. Trace mitral regurgitation. Trace tricuspid regurgitation. Trace pulmonic regurgitation Plan: Telemetry now SR rate 60's. Converted to NSR approx midnight on 05/29 Continue IV amiodarone. Initiate 12.5 mg PO metoprolol BID when cleared for PO by surgery No anticoagulation at this time due to recent surgery. Patient seen in conjunction with Dr. Youngblood who agrees with this plan of care - Patient Problems (1) TYRESE (acute kidney injury) Current Visit: Yes Status: Acute (2) Abdominal pain Current Visit: Yes Status: Acute (3) Atrial fibrillation Current Visit: Yes Status: Acute Qualifiers: Atrial fibrillation type: unspecified Qualified Code(s): I48.91 - Unspec ified atrial fibrillation (4) Hypotension Current Visit: Yes Status: Acute (5) Perforated abdominal viscus Current Visit: Yes Status: Acute Subjective Date of service: 05/29/22 Principal diagnosis: A. fib, perforated abdominal viscus Interval history: Seen and examined in hospital room today. She is converted to normal sinus rhythm, she is feeling better, still complaining of some abdominal pain Telemetry: Sinus rhythm 60s Intake & Output 05/26/22 05/27/22 05/28/22 05/29/22 23:59 23:59 23:59 23:59 Intake Total 1999 2922.188 2090 1130 Output Total 420 1450 455 750 Balance 1580 4979.632 0840 380 Weight 78.925 kg 85.5 kg 85.5 kg Objective Vital Signs Temp Pulse Pulse Resp BP Pulse Ox 05/29/22 10:00 66 15 122/65 94 05/29/22 09:00 72 15 123/67 90 05/29/22 08:08 93 05/29/22 08:00 66 67 15 113/65 95 05/29/22 07:15 97.4 F L 05/29/22 07:00 65 17 120/56 94 05/29/22 06:00 68 17 128/61 94 05/29/22 05:00 65 22 126/63 95 05/29/22 04:00 63 68 12 124/60 97 05/29/22 03:42 97.6 F 05/29/22 03:00 63 16 125/58 95 05/29/22 02:00 62 13 129/59 96 05/29/22 01:45 63 13 131/63 98 05/29/22 01:31 65 14 131/63 97 05/29/22 01:15 62 13 131/63 98 05/29/22 01:00 63 13 131/63 98 05/29/22 00:45 64 11 L 132/61 97 05/29/22 00:31 64 15 132/61 96 05/29/22 00:15 70 17 132/61 97 05/29/22 00:01 67 19 132/61 94 05/29/22 00:00 97.5 F L 61 61 17 98 05/28/22 23:45 67 19 105/50 96 05/28/22 23:31 64 12 105/50 96 05/28/22 23:15 66 16 105/50 94 05/28/22 23:00 63 14 105/50 98 05/28/22 22:45 65 13 115/51 96 05/28/22 22:31 66 13 115/51 96 05/28/22 22:15 66 13 115/51 96 05/28/22 22:00 64 13 115/51 95 05/28/22 21:45 70 17 117/55 96 05/28/22 21:31 69 14 117/55 96 05/28/22 21:15 77 22 117/55 96 05/28/22 21:13 97 05/28/22 21:00 72 13 117/55 96 05/28/22 20:45 69 14 108/63 96 05/28/22 20:31 108 H 14 108/63 97 05/28/22 20:15 99 H 15 108/63 96 05/28/22 20:00 97.9 F 92 H 66 17 108/63 96 05/28/22 19:45 95 H 15 124/60 97 05/28/22 19:31 100 H 17 124/60 95 05/28/22 19:15 111 H 16 124/60 97 05/28/22 19:00 98 H 17 124/60 95 05/28/22 18:45 101 H 12 120/63 98 05/28/22 18:31 90 14 120/63 98 05/28/22 18:15 93 H 12 120/63 97 05/28/22 18:00 100 H 16 120/63 98 05/28/22 17:45 106 H 17 121/78 98 05/28/22 17:31 97 H 13 121/78 98 05/28/22 17:15 107 H 12 121/78 98 05/28/22 17:01 91 H 12 121/78 98 05/28/22 16:45 106 H 19 96/66 98 05/28/22 16:31 99 H 15 96/66 97 05/28/22 16:15 95 H 16 96/66 97 05/28/22 16:01 106 H 14 96/66 96 05/28/22 16:00 97.2 F L 101 H 96 H 15 97 05/28/22 15:46 102 H 15 91/58 97 05/28/22 15:31 111 H 12 91/58 95 05/28/22 15:15 98 H 12 91/58 97 05/28/22 15:01 108 H 15 91/58 95 05/28/22 14:45 101 H 15 95/51 97 05/28/22 14:31 111 H 21 95/51 96 05/28/22 14:15 93 H 27 H 95/51 97 05/28/22 14:00 97 H 22 120/65 97 05/28/22 13:45 107 H 12 120/65 98 05/28/22 13:31 101 H 11 L 120/65 98 05/28/22 13:15 99 H 14 120/65 98 05/28/22 13:00 101 H 12 120/65 99 05/28/22 12:45 96 H 14 111/82 98 05/28/22 12:31 95 H 14 111/82 98 05/28/22 12:15 101 H 18 111/82 99 05/28/22 12:03 97.4 F L 05/28/22 12:00 109 H 101 H 17 111/82 95 05/28/22 11:45 108 H 17 113/75 95 05/28/22 11:31 102 H 16 113/75 98 05/28/22 11:15 102 H 18 113/75 96 05/28/22 11:00 120 H 13 113/75 93 05/28/22 10:45 99 H 18 110/65 97 - Physical Examination General: No Apparent Distress HEENT: Positive: PERRL, Mucus Membranes Moist Neck: Positive: neck supple, trachea midline Cardiac: Positive: Regular Rate, Regular Rhythm, S1/S2. Negative: Audible Murmur Lungs: Positive: Decreased Breath Sounds Neuro: Positive: Grossly Intact Abdomen: Positive: Soft, Tender, Other (Surgical dressings) Skin: Positive: Clear Extremities: Absent: edema - Labs and Meds CBC 05/29/22 Range/Units 05:10 WBC 12.7 H (4.5-11.0) K/mm3 RBC 4.03 (3.65-5.03) M/mm3 Hgb 10.8 (10.1-14.3) gm/dl Hct 33.9 (30.3-42.9) % Plt Count 325 (140-440) K/mm3 Comprehensive Metabolic Panel 05/29/22 Range/Units 05:10 Sodium 136 L (137-145) mmol/L Potassium 3.9 D (3.6-5.0) mmol/L Chloride 105.1 (98-107) mmol/L Carbon Dioxide 21 L (22-30) mmol/L BUN 36 H (7-17) mg/dL Creatinine 0.9 (0.6-1.2) mg/dL Glucose 120 H (65-100) mg/dL Calcium 8.2 L (8.4-10.2) mg/dL - Imaging and Cardiology Echo: report reviewed - Telemetry EKG Rhythm: Sinus Rhythm
--- NOTE | 2022-05-29 11:00 | Progress Note ---
Assessment and Plan Assessment and plan: 76 YO Female with Vascular Dementia, Cerebral Atherosclerosis, Debility, Hypothyroidism presents to ED for evaluation. Patient has diminished cognition and provides minimal history. Patient reports "I feel weak and I fell down". Patient son is at bedside and provides additional history. Patient son reports that patient has also experienced generalized weakness over the past 1 week with worsening symptoms over the past 2 days. Patient also complained of lower abdominal pain over the past 3 days. Patient was ambulating today and experienced a fall from a standing position landing against a wall and sustaining a laceration to area. EMS was notified and upon arrival the patient was found to be in distress and subsequent transported to [facility] for further care and evaluation of the aforementioned symptoms. The patient was seen and evaluated emergency department. All lab and imaging studies reviewed. Patient found to have a systolic blood pressure in the 90s. Patient found to have systemic inflammatory response syndrome, metabolic acidosis, acute kidney injury, diastolic CHF, as well as perforated viscus, colitis. Surgery team consulted in ED. Patient taken urgently to operating room for surgical intervention. No reports of fever, chills, chest pain, palpitation, productive cough, skin rash, recent contact, known exposure to COVID-19. No prior admission for review. No medication listed at time of admission for reconciliation. Advanced care planning conducted in ED. 05/27: Drowsy but AAO, on 2L NC. Off pressor this am, remains in Afib rate control. Still on Amiodarone gtt per Cardio. Exp lap sites noted with no complications. Still with hypoactive BS this am. Keep patient NPO, NGT to LIS, and continue current IV Abx per General Surgery. PT/OT consulted. 05-28 NGT clamped; transfer orders placed neuro: acute pain #Scalp Laceration #S/p Fall at home advanced care plannng neuro intact maew; follows commands pain well controlled PRN pain meds on home psych meds pt reports risperodone, depakote and clonazepam but then clonazepam listed as allergy pharm aware will need to clarify and convert to PO when taking PO pt/ot/st will be needed note pt had fall prior to admit no injuries noted or reported- imaging completed- see reports CV afib-new this admit no pressors normotensive afib - converted to SR overnight cards following add metop when able to take PO and then d/c IV amio Resp pulm insufficiency NC PRN needs aggressive pulm hygiene GI sp perf viscous and ex lap - #Perforated Abdominal Viscus #Perforated Transverse Colon Tumor #S/p Right Hemicolectomy strict NPO per Dr Amanda per nursing staff she passed liquid stool overnight pt does not report flatus - but she also did not know she had a BM inc BS today NG clamped 05/28 defer PO to GI pepcid hypok; peripheral edema; TYRESE- improving intake/output net pos 1.6L over 24 hours made 340 ml urine over 24 hours generalized edema trend and replace electrolytes IV PRN K this AM 3.9 replaced this AM remains on IVF hopefully this afternoon pt will be cleared for PO and IVF can be d/c she continues to have generalized edema and is consistently in positive fluid balance on a daily basis cr improving continue to monitor Heme-nap hgb stable no bleeding VTE ROLANDO ID- sp perf viscous cefipime and flagyl per gen surgery afebrile trend WBC covid neg 05/26 GNR noted in peritoneal fluid Endo - stress hyperglycemia; obese BG control PRN Disposition Plan: transfer to floor when bed available Total Time Spent with Patient (Minutes): 60 min non critical care time History Interval history: no acute events overnight Hospitalist Physical - Constitutional Vitals: Temp Pulse Resp BP Pulse Ox 97.4 F L 66 15 122/65 94 05/29/22 07:15 05/29/22 10:00 05/29/22 10:00 05/29/22 10:00 05/29/22 10:00 General appearance: Present: no acute distress, well-nourished, obese - EENT Eyes: Present: PERRL, EOM intact ENT: hearing intact, clear oral mucosa, dentition normal - Neck Neck: Present: supple, rigidity - Respiratory Respiratory effort: normal - Cardiovascular Rhythm: regular Heart Sounds: Present: S1 & S2 Peripheral Pulses: within normal limits - Abdominal General gastrointestinal: soft - Integumentary Integumentary: Present: clear, warm, dry - Psychiatric Psychiatric: appropriate mood/affect - Neurologic Neurologic: CNII-XII intact - Allied Health Allied health notes reviewed: nursing HEART Score - HEART Score Troponin: Troponin T < 0.010 ng/mL (0.00-0.029) 05/26/22 12:51 Results - Labs CBC & Chem 7: 05/29/22 05:10 07/12/22 05:10 Labs: Laboratory Last Values WBC 12.7 K/mm3 (4.5-11.0) H 05/29/22 05:10 RBC 4.03 M/mm3 (3.65-5.03) 05/29/22 05:10 Hgb 10.8 gm/dl (10.1-14.3) 05/29/22 05:10 Hct 33.9 % (30.3-42.9) 05/29/22 05:10 MCV 84 fl (79-97) 05/29/22 05:10 MCH 27 pg (28-32) L 05/29/22 05:10 MCHC 32 % (30-34) 05/29/22 05:10 RDW 17.0 % (13.2-15.2) H 05/29/22 05:10 Plt Count 325 K/mm3 (140-440) 05/29/22 05:10 Add Manual Diff Complete 05/27/22 06:13 Total Counted 100 05/27/22 06:13 Seg Neutrophils % [employer] And Hydronic Balancing Technician 05/27/22 06:13 Seg Neuts % (Manual) 89.0 % (40.0-70.0) H 05/27/22 06:13 Band Neutrophils % 3.0 % 05/27/22 06:13 Lymphocytes % (Manual) 4.0 % (13.4-35.0) L 05/27/22 06:13 Reactive Lymphs % (Man) 1.0 % 05/27/22 06:13 Monocytes % (Manual) 2.0 % (0.0-7.3) 05/27/22 06:13 Eosinophils % (Manual) 0 % (0.0-4.3) 05/27/22 06:13 Basophils % (Manual) 0 % (0.0-1.8) 05/27/22 06:13 Metamyelocytes % 1.0 % 05/27/22 06:13 Myelocytes % 0 % 05/27/22 06:13 Promyelocytes % 0 % 05/27/22 06:13 Blast Cells % 0 % 05/27/22 06:13 Nucleated RBC % Not Reportable 05/27/22 06:13 Seg Neutrophils # Man 9.1 K/mm3 (1.8-7.7) H 05/27/22 06:13 Band Neutrophils # 0.3 K/mm3 05/27/22 06:13 Lymphocytes # (Manual) 0.4 K/mm3 (1.2-5.4) L 05/27/22 06:13 Abs React Lymphs (Man) 0.1 K/mm3 05/27/22 06:13 Monocytes # (Manual) 0.2 K/mm3 (0.0-0.8) 05/27/22 06:13 Eosinophils # (Manual) 0.0 K/mm3 (0.0-0.4) 05/27/22 06:13 Basophils # (Manual) 0.0 K/mm3 (0.0-0.1) 05/27/22 06:13 Metamyelocytes # 0.1 K/mm3 05/27/22 06:13 Myelocytes # 0.0 K/mm3 05/27/22 06:13 Promyelocytes # 0.0 K/mm3 05/27/22 06:13 Blast Cells # 0.0 K/mm3 05/27/22 06:13 WBC Morphology Not Reportable 05/27/22 06:13 Hypersegmented Neuts Not Reportable 05/27/22 06:13 Hyposegmented Neuts Not Reportable 05/27/22 06:13 Hypogranular Neuts Not Reportable 05/27/22 06:13 Smudge Cells Not Reportable 05/27/22 06:13 Toxic Granulation Not Reportable 05/27/22 06:13 Toxic Vacuolation Not Reportable 05/27/22 06:13 Dohle Bodies Not Reportable 05/27/22 06:13 Pelger-Huet Anomaly Not Reportable 05/27/22 06:13 Yesica Rods Not Reportable 05/27/22 06:13 Platelet Estimate Consistent w auto 05/27/22 06:13 Clumped Platelets Few 05/27/22 06:13 Plt Clumps, EDTA Not Reportable 05/27/22 06:13 Large Platelets Rare 05/27/22 06:13 Giant Platelets Not Reportable 05/27/22 06:13 Platelet Satelliting Not Reportable 05/27/22 06:13 Plt Morphology Comment Not Reportable 05/27/22 06:13 RBC Morphology Not Reportable 05/27/22 06:13 Dimorphic RBCs Not Reportable 05/27/22 06:13 Polychromasia Not Reportable 05/27/22 06:13 Hypochromasia Not Reportable 05/27/22 06:13 Poikilocytosis Not Reportable 05/27/22 06:13 Anisocytosis Not Reportable 05/27/22 06:13 Microcytosis Not Reportable 05/27/22 06:13 Macrocytosis Not Reportable 05/27/22 06:13 Spherocytes Not Reportable 05/27/22 06:13 Pappenheimer Bodies Not Reportable 05/27/22 06:13 Sickle Cells Not Reportable 05/27/22 06:13 Target Cells Not Reportable 05/27/22 06:13 Tear Drop Cells Not Reportable 05/27/22 06:13 Ovalocytes Not Reportable 05/27/22 06:13 Helmet Cells Not Reportable 05/27/22 06:13 Lr-Hoopa Bodies Not Reportable 05/27/22 06:13 [place] Rings Not Reportable 05/27/22 06:13 Pana Cells 1+ 05/27/22 06:13 Bite Cells Not Reportable 05/27/22 06:13 Crenated Cell Not Reportable 05/27/22 06:13 Elliptocytes Few 05/27/22 06:13 Acanthocytes (Spur) Not Reportable 05/27/22 06:13 Rouleaux Not Reportable 05/27/22 06:13 Hemoglobin C Crystals Not Reportable 05/27/22 06:13 Schistocytes Not Reportable 05/27/22 06:13 Malaria parasites Not Reportable 05/27/22 06:13 Edd Bodies Not Reportable 05/27/22 06:13 Hem Pathologist Commnt No 05/27/22 06:13 PT 14.8 Sec. (12.2-14.9) 05/26/22 12:51 INR 1.04 (0.87-1.13) 05/26/22 12:51 Sodium 136 mmol/L (137-145) L 05/29/22 05:10 Potassium 3.9 mmol/L (3.6-5.0) D 05/29/22 05:10 Chloride 105.1 mmol/L (98-107) 05/29/22 05:10 Carbon Dioxide 21 mmol/L (22-30) L 05/29/22 05:10 Anion Gap 14 mmol/L 05/29/22 05:10 BUN 36 mg/dL (7-17) H 05/29/22 05:10 Creatinine 0.9 mg/dL (0.6-1.2) 05/29/22 05:10 Estimated GFR > 60 ml/min 05/29/22 05:10 BUN/Creatinine Ratio 40 % 05/29/22 05:10 Glucose 120 mg/dL (65-100) H 05/29/22 05:10 POC Glucose 103 mg/dL (70-105) 05/28/22 23:54 Lactic Acid 1.80 mmol/L (0.7-2.0) 05/26/22 12:51 Calcium 8.2 mg/dL (8.4-10.2) L 05/29/22 05:10 Phosphorus 3.50 mg/dL (2.5-4.5) 05/28/22 03:49 Magnesium 2.10 mg/dL (1.7-2.3) 05/29/22 05:10 Total Bilirubin 0.40 mg/dL (0.1-1.2) 05/27/22 06:13 AST 19 units/L (5-40) 05/27/22 06:13 ALT 11 units/L (7-56) 05/27/22 06:13 Alkaline Phosphatase 46 units/L (35-129) 05/27/22 06:13 Ammonia 19.0 umol/L (25-60) L 05/26/22 12:51 Total Creatine Kinase 262 units/L (30-135) H 05/26/22 12:51 Troponin T < 0.010 ng/mL (0.00-0.029) 05/26/22 12:51 NT-Pro-B Natriuret Pep 2054 pg/mL (0-900) H 05/26/22 12:51 Total Protein 5.3 g/dL (6.3-8.2) L D 05/27/22 06:13 Albumin 1.9 g/dL (3.9-5) L 05/27/22 06:13 Albumin/Globulin Ratio 0.6 % 05/27/22 06:13 TSH 2.890 mlU/mL (0.270-4.200) 05/26/22 12:51 Urine Color Yellow (Yellow) 05/27/22 15:14 Urine Turbidity Clear (Clear) 05/27/22 15:14 Urine pH 5.0 (5.0-7.0) 05/27/22 15:14 Ur Specific [place] 1.020 (1.003-1.030) 05/27/22 15:14 Urine Protein <15 mg/dl mg/dL (Negative) 05/27/22 15:14 Urine Glucose (UA) Neg mg/dL (Negative) 05/27/22 15:14 Urine Ketones Neg mg/dL (Negative) 05/27/22 15:14 Urine Blood Neg (Negative) 05/27/22 15:14 Urine Nitrite Neg (Negative) 05/27/22 15:14 Urine Bilirubin Neg (Negative) 05/27/22 15:14 Urine Urobilinogen < 2.0 mg/dL (<2.0) 05/27/22 15:14 Ur Leukocyte Esterase Neg (Negative) 05/27/22 15:14 Urine WBC (Auto) 26.0 /HPF (0.0-6.0) H 05/27/22 15:14 Urine RBC (Auto) 5.0 /HPF (0.0-6.0) 05/27/22 15:14 U Epithel Cells (Auto) < 1.0 /HPF (0-13.0) 05/27/22 15:14 Urine Bacteria (Auto) 1+ /HPF (Negative) 05/27/22 15:14 Ur Transition Epith Cell 2 /HPF 05/26/22 02:15 Urine Mucus Few /HPF 05/27/22 15:14 Urine Creatinine 92.7 mg/dL (0.1-20.0) H 05/27/22 15:13 Urine Sodium 10 mmol/L 05/27/22 19:00 Valproic Acid 45.5 ug/mL (50-100) L 05/26/22 12:51 Coronavirus (PCR) Negative (Negative) 05/27/22 11:46 Blood Type A POSITIVE 05/26/22 15:06 Antibody Screen Negative 05/26/22 15:06 Microbiology: Microbiology 05/27/22 15:14 Urine,Clean Catch Urine Culture - Preliminary NO GROWTH AFTER 24 HOURS 05/26/22 02:15 Urine,Clean Catch Urine Culture - Preliminary NO GROWTH AFTER 24 HOURS 05/26/22 12:51 Peripheral/Venous Blood Culture - Preliminary NO GROWTH AFTER 48 HOURS 05/26/22 12:51 Peripheral/Venous Blood Culture - Preliminary NO GROWTH AFTER 48 HOURS Marrero/IV: Voiding Method Indwelling Catheter Active Medications - Current Medications Current Medications: Generic Name Dose Route Start Last Admin Trade Name Freq PRN Reason Stop Dose Admin Famotidine 20 mg 05/27/22 22:00 05/29/22 09:58 Famotidine 20 Mg/2 Ml Inj IV 20 mg BID ROLANDO Administration Haloperidol Lactate 2.5 mg 05/28/22 10:52 Haloperidol Lactate 5 Mg/1 Ml Inj IV Q6H PRN Agitation Heparin Sodium (Porcine) 5,000 unit 05/27/22 22:00 05/29/22 06:24 Heparin 5,000 Unit/1 Ml Vial SUB-Q 5,000 unit Q8HR ROLANDO Administration Hydromorphone HCl 0.5 mg 05/26/22 16:14 Hydromorphone 0.5 Mg/0.5 Ml Inj IV Q3H PRN Pain , Severe (7-10) Amiodarone HCl 900 mg/ 500 mls @ 33.333 mls/hr 05/26/22 23:00 05/27/22 20:06 Dextrose IV 0.5 mg/min DIRECT ROLANDO 16.667 mls/hr Administration Protocol 1 MG/MIN Dextrose/Sodium Chloride 1,000 mls @ 100 mls/hr 05/26/22 23:46 05/29/22 06:23 D5/0.45ns IV 100 mls/hr DIRECT ROLANDO Administration Metronidazole 500 mg in 100 mls @ 100 mls/hr 05/27/22 13:00 05/29/22 06:00 Flagyl 500 Mg/100 Ml IV Infused Q8H ROLANDO Infusion Protocol Cefepime HCl 2 gm in 100 mls @ 200 mls/hr 05/28/22 10:00 05/29/22 10:29 Cefepime/Ns 2 Gm/100 Ml IV Infused Q12H ROLANDO Infusion Valproate Sodium 500 mg/ 105 mls @ 100 mls/hr 05/28/22 12:00 05/29/22 09:58 Sodium Chloride IV 100 mls/hr Q12HR ROLANDO Administration Potassium Chloride 10 meq in 100 mls @ 100 mls/hr 05/29/22 10:00 05/29/22 09:59 Kcl 10meq/100ml IV 05/29/22 11:59 100 mls/hr Q1H ROLANDO Administration Metoprolol Tartrate 12.5 mg 05/29/22 22:00 Metoprolol Tartrate 25 Mg Tab PO BID ROLANDO Morphine Sulfate 2 mg 05/26/22 16:14 05/29/22 09:58 Morphine 2 Mg/1 Ml Inj IV 2 mg Q4H PRN Administration Pain, Moderate (4-6) Morphine Sulfate 4 mg 05/26/22 16:16 Morphine 4 Mg/1 Ml Inj IV Q4H PRN Pain , Severe (7-10) Sodium Chloride 10 ml 05/26/22 22:00 05/29/22 10:00 Sodium Chloride 0.9% 10 Ml Flush Syringe IV 10 ml BID ROLANDO Administration Sodium Chloride 10 ml 05/26/22 16:11 Sodium Chloride 0.9% 10 Ml Flush Syringe IV PRN PRN LINE FLUSH Nutrition/Malnutrition Assess - Malnutrition Assessment Minimum of two criteria: Yes - Attestation Statement I have reviewed and agreed w/ Malnutrition eval & tx plan: Yes
--- NOTE | 2022-05-29 15:14 | Progress Note ---
Assessment and Plan Postop day #3 status post exploratory laparotomy with extended right hemicolectomy and ileal colic anastomosis for perforated transverse colon tumor. Patient is afebrile and stable. waiting on CEA level and final path results. We will continue antibiotics and NG tube suction until showing signs of return of bowel function. Pt can have sparing ice chips. Subjective Date of service: 05/29/22 Narrative: No acute events overnight. Patient denies any significant pain and also not passing flatus yet. She is tolerating ice chips and has low gastric residuals. Objective Vital Signs - 12hr 05/29/22 05/29/22 05/29/22 03:42 04:00 05:00 Temperature 97.6 F Pulse Rate 63 65 Pulse Rate [ 68 From Monitor] Respiratory 12 22 Rate Blood Pressure 124/60 126/63 O2 Sat by Pulse 97 95 Oximetry 05/29/22 05/29/22 05/29/22 06:00 07:00 07:15 Temperature 97.4 F L Pulse Rate 68 65 Pulse Rate [ From Monitor] Respiratory 17 17 Rate Blood Pressure 128/61 120/56 O2 Sat by Pulse 94 94 Oximetry 05/29/22 05/29/22 05/29/22 08:00 08:08 09:00 Temperature Pulse Rate 66 72 Pulse Rate [ 67 From Monitor] Respiratory 15 15 Rate Blood Pressure 113/65 123/67 O2 Sat by Pulse 95 93 90 Oximetry 05/29/22 05/29/22 05/29/22 10:00 11:01 11:32 Temperature 97.4 F L Pulse Rate 66 66 Pulse Rate [ From Monitor] Respiratory 15 12 Rate Blood Pressure 122/65 138/64 O2 Sat by Pulse 94 92 Oximetry 05/29/22 05/29/22 05/29/22 12:00 13:00 14:00 Temperature Pulse Rate 68 66 67 Pulse Rate [ 67 From Monitor] Respiratory 11 L 16 13 Rate Blood Pressure 128/65 145/66 153/69 O2 Sat by Pulse 94 93 92 Oximetry 05/29/22 15:00 Temperature Pulse Rate 65 Pulse Rate [ From Monitor] Respiratory 16 Rate Blood Pressure 144/66 O2 Sat by Pulse 95 Oximetry - General physical appearance well developed, no distress, no pain - Eyes PERRL - ENT no hearing loss - Respiratory normal expansion, normal respiratory effort - Abdomen soft, not tender, not distended, other (BREONNA drain serous, midline incision c/d/i) - Labs 05/29/22 05:10 05/29/22 05:10 Diabetes panel 05/29/22 Range/Units 05:10 Sodium 136 L (137-145) mmol/L Potassium 3.9 D (3.6-5.0) mmol/L Chloride 105.1 (98-107) mmol/L Carbon Dioxide 21 L (22-30) mmol/L BUN 36 H (7-17) mg/dL Creatinine 0.9 (0.6-1.2) mg/dL Glucose 120 H (65-100) mg/dL Calcium 8.2 L (8.4-10.2) mg/dL Calcium panel 05/29/22 Range/Units 05:10 Calcium 8.2 L (8.4-10.2) mg/dL Pituitary panel 05/29/22 Range/Units 05:10 Sodium 136 L (137-145) mmol/L Potassium 3.9 D (3.6-5.0) mmol/L Chloride 105.1 (98-107) mmol/L Carbon Dioxide 21 L (22-30) mmol/L BUN 36 H (7-17) mg/dL Creatinine 0.9 (0.6-1.2) mg/dL Glucose 120 H (65-100) mg/dL Calcium 8.2 L (8.4-10.2) mg/dL Adrenal panel 05/29/22 Range/Units 05:10 Sodium 136 L (137-145) mmol/L Potassium 3.9 D (3.6-5.0) mmol/L Chloride 105.1 (98-107) mmol/L Carbon Dioxide 21 L (22-30) mmol/L BUN 36 H (7-17) mg/dL Creatinine 0.9 (0.6-1.2) mg/dL Glucose 120 H (65-100) mg/dL Calcium 8.2 L (8.4-10.2) mg/dL
--- NOTE | 2022-05-29 17:07 | Progress Note ---
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 De-escalte based on Peritoneal fluid sent for culture, result pending - Keep patient NPO, NGT clamped - Continue current IVF - VTE prophylaxis- Heparin - PT/OT , increase activity as tolerated - Baseline renal function is unknown CT abd/Pelvis reviewed, kidneys are unremarkable - Avoid nephrotoxic medications; Renally dose medications - Monitor and replace electrolytes as needed - Posterior head laceration noted, shawn present. Incision open to air - Wound care per nursing - Fall precautions - Chronic home medications Can transfer her out of the ICU Subjective Date of service: 05/29/22 Principal diagnosis: A. 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 Vitals, labs, medication, chart reviewed. Discussed with nursing care staff. No adverse overnight events reported No fevers, no nausea or vomiting. Has passed flatus. NGT clamped Objective - Exam Narrative Exam: Physical Exam: VITAL SIGNS: Reviewed. GENERAL: The patient appears normally developed, Vital signs as documented. HEAD: No signs of head trauma. EYES: Pupils are equal. Extraocular motions intact. EARS: Hearing grossly intact. MOUTH: Oropharynx is normal. NECK: No adenopathy, no JVD. CHEST: Chest with clear breath sounds bilaterally. No wheezes, rales, or rhonchi. CARDIAC: Regular rate and rhythm. S1 and S2, without murmurs, gallops, or ru bs. VASCULAR: No Edema. Peripheral pulses normal and equal in all extremities. ABDOMEN: Soft, non tender and non distended. No rebound or guarding, and no masses palpated. Bowel Sounds normal. MUSCULOSKELETAL: Good range of motion of all major joints. Extremities without clubbing, cyanosis or edema. NEUROLOGIC EXAM: Alert and oriented x 4. no focal sensory or strength deficits. PSYCHIATRIC: Mood normal. SKIN: detail exam as documented in skin assessment Vital Signs - 12hr 05/29/22 05/29/22 05/29/22 06:00 07:00 07:15 Temperature 97.4 F L Pulse Rate 68 65 Pulse Rate [ From Monitor] Respiratory 17 17 Rate Blood Pressure 128/61 120/56 O2 Sat by Pulse 94 94 Oximetry 05/29/22 05/29/22 05/29/22 08:00 08:08 09:00 Temperature Pulse Rate 66 72 Pulse Rate [ 67 From Monitor] Respiratory 15 15 Rate Blood Pressure 113/65 123/67 O2 Sat by Pulse 95 93 90 Oximetry 05/29/22 05/29/22 05/29/22 10:00 11:01 11:32 Temperature 97.4 F L Pulse Rate 66 66 Pulse Rate [ From Monitor] Respiratory 15 12 Rate Blood Pressure 122/65 138/64 O2 Sat by Pulse 94 92 Oximetry 05/29/22 05/29/22 05/29/22 12:00 13:00 14:00 Temperature Pulse Rate 68 66 67 Pulse Rate [ 67 From Monitor] Respiratory 11 L 16 13 Rate Blood Pressure 128/65 145/66 153/69 O2 Sat by Pulse 94 93 92 Oximetry 05/29/22 15:00 Temperature Pulse Rate 65 Pulse Rate [ From Monitor] Respiratory 16 Rate Blood Pressure 144/66 O2 Sat by Pulse 95 Oximetry CBC and BMP: 05/31/22 05:56 05/31/22 05:56 ABG, PT/INR, D-dimer: PT/INR, D-dimer PT 14.8 Sec. (12.2-14.9) 05/26/22 12:51 INR 1.04 (0.87-1.13) 05/26/22 12:51 Abnormal lab findings: Abnormal Labs 05/26/22 05/26/22 05/26/22 02:15 12:51 12:51 WBC MCH 27 L RDW 17.0 H Plt Count Seg Neuts % (Manual) 91.0 H Lymphocytes % (Manual) 2.0 L Seg Neutrophils # Man 8.1 H Lymphocytes # (Manual) 0.2 L Sodium Potassium Carbon Dioxide 20 L BUN 72 H Creatinine 4.0 H Glucose POC Glucose Calcium Phosphorus 4.70 H Magnesium Ammonia Total Creatine Kinase 262 H NT-Pro-B Natriuret Pep Total Protein Albumin 2.9 L Urine WBC (Auto) 20.0 H Urine Creatinine Valproic Acid 05/26/22 05/26/22 05/26/22 12:51 12:51 12:51 WBC MCH RDW Plt Count Seg Neuts % (Manual) Lymphocytes % (Manual) Seg Neutrophils # Man Lymphocytes # (Manual) Sodium Potassium Carbon Dioxide BUN Creatinine Glucose POC Glucose Calcium Phosphorus Magnesium Ammonia 19.0 L Total Creatine Kinase NT-Pro-B Natriuret Pep 2054 H Total Protein Albumin Urine WBC (Auto) Urine Creatinine Valproic Acid 45.5 L 05/27/22 05/27/22 05/27/22 06:13 06:13 15:13 WBC MCH 27 L RDW 16.9 H Plt Count 485 H Seg Neuts % (Manual) 89.0 H Lymphocytes % (Manual) 4.0 L Seg Neutrophils # Man 9.1 H Lymphocytes # (Manual) 0.4 L Sodium 136 L Potassium Carbon Dioxide 20 L BUN 57 H Creatinine 2.2 H Glucose 208 H POC Glucose Calcium 8.0 L Phosphorus Magnesium Ammonia Total Creatine Kinase NT-Pro-B Natriuret Pep Total Protein 5.3 L D Albumin 1.9 L Urine WBC (Auto) Urine Creatinine 92.7 H Valproic Acid 05/27/22 05/27/22 05/28/22 15:14 18:31 00:19 WBC MCH RDW Plt Count Seg Neuts % (Manual) Lymphocytes % (Manual) Seg Neutrophils # Man Lymphocytes # (Manual) Sodium Potassium Carbon Dioxide BUN Creatinine Glucose POC Glucose 155 H 135 H Calcium Phosphorus Magnesium Ammonia Total Creatine Kinase NT-Pro-B Natriuret Pep Total Protein Albumin Urine WBC (Auto) 26.0 H Urine Creatinine Valproic Acid 05/28/22 05/28/22 05/28/22 03:49 03:49 11:46 WBC MCH 27 L RDW 17.3 H Plt Count Seg Neuts % (Manual) Lymphocytes % (Manual) Seg Neutrophils # Man Lymphocytes # (Manual) Sodium 134 L Potassium 3.2 L Carbon Dioxide 20 L BUN 49 H Creatinine 1.4 H Glucose 190 H POC Glucose 130 H Calcium 8.0 L Phosphorus Magnesium 2.40 H Ammonia Total Creatine Kinase NT-Pro-B Natriuret Pep Total Protein Albumin Urine WBC (Auto) Urine Creatinine Valproic Acid 05/29/22 05/29/22 05:10 05:10 WBC 12.7 H MCH 27 L RDW 17.0 H Plt Count Seg Neuts % (Manual) Lymphocytes % (Manual) Seg Neutrophils # Man Lymphocytes # (Manual) Sodium 136 L Potassium Carbon Dioxide 21 L BUN 36 H Creatinine Glucose 120 H POC Glucose Calcium 8.2 L Phosphorus Magnesium Ammonia Total Creatine Kinase NT-Pro-B Natriuret Pep Total Protein Albumin Urine WBC (Auto) Urine Creatinine Valproic Acid
[2022-05-29] MEDS: METOPROLOL TARTRATE 25 MG TAB PO SCH (21:24)
[2022-05-30] MEDS: MORPHINE 2 MG/1 ML INJ IV PRN ×2 (03:02→13:05)
[2022-05-30] MEDS: D5W/0.45% NACL 1,000 ML IV SCH (04:59)
[2022-05-30] MEDS: metroNIDAZOLE/NS 500 MG/100 ML 500 MG/100 ML BAG IV SCH ×3 (04:59→21:19)
[2022-05-30] MEDS: AMIODARONE 900 MG in DEXTROSE 5% IN WATER 482 ML IV SCH (05:00)
[2022-05-30] MEDS: HEPARIN 5,000 UNIT/1 ML VIAL SUB-Q SCH ×3 (05:07→21:25)
--- NOTE | 2022-05-30 08:35 | Progress Note ---
Assessment and Plan Postop day #4 status post exploratory laparotomy with extended right hemicolectomy and ileal colic anastomosis for perforated transverse colon tumor. Patient is afebrile and stable. waiting on CEA level and final path results. Will d/c ngt and trial of clear liquids. Subjective Date of service: 05/30/22 Patient Reports: Positive: no new complaints Narrative: No acute events overnight. Pt denies any pain or n/v. Denies flatus. Did sit in the chair with PT. Objective Vital Signs - 12hr 05/29/22 05/29/22 05/29/22 21:00 21:24 22:00 Temperature Pulse Rate 67 72 70 Pulse Rate [ 67 From Monitor] Respiratory 17 18 Rate Respiratory 16 Rate [Abdomen] Blood Pressure 137/58 137/58 133/67 Blood Pressure [Left] O2 Sat by Pulse 93 94 Oximetry 05/29/22 05/29/22 05/30/22 23:00 23:45 00:00 Temperature 97.8 F Pulse Rate 75 66 Pulse Rate [ From Monitor] Respiratory 23 Rate Respiratory Rate [Abdomen] Blood Pressure 133/67 Blood Pressure [Left] O2 Sat by Pulse 94 Oximetry 05/30/22 05/30/22 05/30/22 00:01 01:00 02:00 Temperature Pulse Rate 66 69 66 Pulse Rate [ From Monitor] Respiratory 13 16 13 Rate Respiratory Rate [Abdomen] Blood Pressure 112/54 122/60 121/56 Blood Pressure [Left] O2 Sat by Pulse 91 92 92 Oximetry 05/30/22 05/30/22 05/30/22 03:00 03:02 03:32 Temperature Pulse Rate 66 Pulse Rate [ From Monitor] Respiratory 19 20 13 Rate Respiratory Rate [Abdomen] Blood Pressure 128/60 Blood Pressure [Left] O2 Sat by Pulse 92 Oximetry 05/30/22 05/30/22 05/30/22 03:55 03:57 04:00 Temperature 98.1 F 98.1 F Pulse Rate 64 62 Pulse Rate [ From Monitor] Respiratory 12 Rate Respiratory Rate [Abdomen] Blood Pressure 113/56 Blood Pressure [Left] O2 Sat by Pulse 90 Oximetry 05/30/22 05/30/22 05/30/22 05:00 06:00 08:26 Temperature Pulse Rate 64 65 66 Pulse Rate [ From Monitor] Respiratory 18 17 18 Rate Respiratory Rate [Abdomen] Blood Pressure 124/58 116/58 Blood Pressure 124/58 [Left] O2 Sat by Pulse 92 92 93 Oximetry - General physical appearance well developed, no distress, no pain - Eyes PERRL - ENT no hearing loss - Respiratory normal expansion, normal respiratory effort - Abdomen soft, not tender, bowel sounds normal, not distended, other (NGT clamped with low residuals. ) - Labs 05/29/22 05:10 05/29/22 05:10
[2022-05-30] MEDS: CEFEPIME/NS 2 GM/100 ML 2 GM/100 ML BAG IV SCH ×2 (09:20→22:13)
[2022-05-30] MEDS: FAMOTIDINE 20 MG/2 ML INJ IV SCH ×2 (09:21→21:24)
[2022-05-30] MEDS: METOPROLOL TARTRATE 25 MG TAB PO SCH ×3 (09:21→21:25)
--- NOTE | 2022-05-30 09:59 | Progress Note ---
Assessment and Plan Patient is a 76-year-old female with vascular dementia with complaint of 1 week having abdominal pain with some loose stools. But still eating. Came to the hospital after a fall. An dfound to have perforated abdominal viscus. Patient was taken to surgery and postoperatively went to A. fib. Afib w/ RVR-currently sinus rhythm TYRESE Hypotension Perforated abdominal viscus-surgery following Scalp laceration Echo 05/26/2022-EF 50 to 55%. Right ventricle is mildly dilated. Right ventricle is mildly hypokinetic. Left atrium is normal in size. Trace aortic regurgitation. Trace mitral regurgitation. Trace tricuspid regurgitation. Trace pulmonic regurgitation Plan: Telemetry reviewed patient remains in sinus rhythm 60s Conversation had with surgery that patient can take metoprolol 12.5 mg p.o. twice daily with sips of water. Stop IV amiodarone No anticoagulation at this time due to recent surgery. Furthermore patient [id number] score is 2, patient's A. fib lasted less than 48 hours following surgery, and has normal left atrium. No indication at this time for anticoagulation Plan of care discussed with patient's son who verbalized understanding and acknowledgment Patient seen in conjunction with Dr. Youngblood who agrees with this plan of care - Patient Problems (1) TYRESE (acute kidney injury) Current Visit: Yes Status: Acute (2) Atrial fibrillation Current Visit: Yes Status: Acute Qualifiers: Atrial fibrillation type: unspecified Qualified Code(s): I48.91 - Unspecified atrial fibrillation (3) Hypotension Current Visit: Yes Status: Acute (4) Perforated abdominal viscus Current Visit: Yes Status: Acute (5) Scalp laceration Current Visit: Yes Status: Acute Qualifiers: Encounter type: initial encounter Qualified Code(s): S01.01XA - Laceration without foreign body of scalp, initial encounter Subjective Date of service: 05/30/22 Principal diagnosis: A. fib, perforated abdominal viscus Interval history: Patient resting in bed in no acute distress. Family member at bedside. Patient has been transferred to telemetry Sinus 60s on monitor with no event Objective Vital Signs Temp Pulse Pulse Resp Resp BP BP 05/30/22 08:26 66 18 124/58 05/30/22 06:00 65 17 116/58 05/30/22 05:00 64 18 124/58 05/30/22 04:00 98.1 F 62 12 113/56 05/30/22 03:57 98.1 F 05/30/22 03:55 64 05/30/22 03:32 13 05/30/22 03:02 20 05/30/22 03:00 66 19 128/60 05/30/22 02:00 66 13 121/56 05/30/22 01:00 69 16 122/60 05/30/22 00:01 66 13 112/54 05/30/22 00:00 97.8 F 05/29/22 23:45 66 05/29/22 23:00 75 23 133/67 05/29/22 22:00 70 18 16 133/67 05/29/22 21:24 72 137/58 05/29/22 21:00 67 67 17 137/58 05/29/22 20:33 05/29/22 20:05 68 05/29/22 20:00 68 18 136/67 05/29/22 19:45 98.7 F 05/29/22 19:00 67 12 128/57 05/29/22 18:39 68 16 134/65 05/29/22 18:00 67 16 134/65 05/29/22 17:00 72 22 132/60 05/29/22 16:01 73 19 103/70 05/29/22 16:00 97.3 F L 68 67 15 05/29/22 15:00 65 16 144/66 05/29/22 14:00 67 13 153/69 05/29/22 13:00 66 16 145/66 05/29/22 12:00 68 67 11 L 128/65 05/29/22 11:32 97.4 F L 05/29/22 11:01 66 12 138/64 05/29/22 10:00 66 15 122/65 Pulse Ox 05/30/22 08:26 93 05/30/22 06:00 92 05/30/22 05:00 92 05/30/22 04:00 90 05/30/22 03:57 05/30/22 03:55 05/30/22 03:32 05/30/22 03:02 05/30/22 03:00 92 05/30/22 02:00 92 05/30/22 01:00 92 05/30/22 00:01 91 05/30/22 00:00 05/29/22 23:45 05/29/22 23:00 94 05/29/22 22:00 94 05/29/22 21:24 05/29/22 21:00 93 05/29/22 20:33 92 05/29/22 20:05 05/29/22 20:00 93 05/29/22 19:45 05/29/22 19:00 92 05/29/22 18:39 92 05/29/22 18:00 95 05/29/22 17:00 93 05/29/22 16:01 91 05/29/22 16:00 94 05/29/22 15:00 95 05/29/22 14:00 92 05/29/22 13:00 93 05/29/22 12:00 94 05/29/22 11:32 05/29/22 11:01 92 05/29/22 10:00 94 - Physical Examination General: No Apparent Distress HEENT: Positive: PERRL, Mucus Membranes Moist Neck: Positive: neck supple, trachea midline Cardiac: Positive: Reg Rate and Rhythm Lungs: Positive: Normal Breath Sounds Neuro: Positive: Grossly Intact Abdomen: Positive: Soft, Active Bowel Sounds, Other (Surgical dressings) Skin: Positive: Clear Incision: Cardiac Cath Site Musculoskeletal: No Pain, Normal Range of Motion Extremities: Absent: edema - Imaging and Cardiology Echo: report reviewed - Telemetry EKG Rhythm: Sinus Rhythm - EKG Sinus rhythms and dysrhythmias: sinus rhythm
[2022-05-30] MEDS: VALPROATE SODIUM 500 MG in SODIUM CHLORIDE 0.9% 100 ML IV SCH (10:49)
--- NOTE | 2022-05-30 15:24 | Progress Note ---
Assessment and Plan Assessment and plan: 76 YO Female with Vascular Dementia, Cerebral Atherosclerosis, Debility, Hypothyroidism presents to ED for evaluation. Patient has diminished cognition and provides minimal history. Patient reports "I feel weak and I fell down". Patient son is at bedside and provides additional history. Patient son reports that patient has also experienced generalized weakness over the past 1 week with worsening symptoms over the past 2 days. Patient also complained of lower abdominal pain over the past 3 days. Patient was ambulating today and experienced a fall from a standing position landing against a wall and sustaining a laceration to area. EMS was notified and upon arrival the patient was found to be in distress and subsequent transported to [facility] for further care and evaluation of the aforementioned symptoms. The patient was seen and evaluated emergency department. All lab and imaging studies reviewed. Patient found to have a systolic blood pressure in the 90s. Patient found to have systemic inflammatory response syndrome, metabolic acidosis, acute kidney injury, diastolic CHF, as well as perforated viscus, colitis. Surgery team consulted in ED. Patient taken urgently to operating room for surgical intervention. No reports of fever, chills, chest pain, palpitation, productive cough, skin rash, recent contact, known exposure to COVID-19. No prior admission for review. No medication listed at time of admission for reconciliation. Advanced care planning conducted in ED. 05/27: Drowsy but AAO, on 2L NC. Off pressor this am, remains in Afib rate control. Still on Amiodarone gtt per Cardio. Exp lap sites noted with no complications. Still with hypoactive BS this am. Keep patient NPO, NGT to LIS, and continue current IV Abx per General Surgery. PT/OT consulted. 05-28 NGT clamped; transfer orders placed 05/30: D/w Dr Amanda, surgery. NGT currently clamped, can be d/c. Patient can begin trial of sips of CLD. Monitor for BM. Will resume po meds. Cardiology recommendations re: rate control meds noted. neuro: acute pain #Scalp Laceration #S/p Fall at home advanced care plannng neuro intact maew; follows commands pain well controlled PRN pain meds on home psych meds pt reports risperodone, depakote and clonazepam but then clonazepam listed as allergy pharm aware will need to clarify and convert to PO when taking PO pt/ot/st will be needed note pt had fall prior to admit no injuries noted or reported- imaging completed- see reports CV afib-new this admit no pressors normotensive afib - converted to SR overnight cards following add metop when able to take PO and then d/c IV amio Resp pulm insufficiency NC PRN needs aggressive pulm hygiene GI sp perf viscous and ex lap - #Perforated Abdominal Viscus #Perforated Transverse Colon Tumor #S/p Right Hemicolectomy strict NPO per Dr Amanda per nursing staff she passed liquid stool overnight pt does not report flatus - but she also did not know she had a BM inc BS today NG clamped 05/28 defer PO to GI pepcid hypok; peripheral edema; TYRESE- improving intake/output net pos 1.6L over 24 hours made 340 ml urine over 24 hours generalized edema trend and replace electrolytes IV PRN K this AM 3.9 replaced this AM remains on IVF hopefully this afternoon pt will be cleared for PO and IVF can be d/c she continues to have generalized edema and is consistently in positive fluid balance on a daily basis cr improving continue to monitor Heme-nap hgb stable no bleeding VTE ROLANDO ID- sp perf viscous cefipime and flagyl per gen surgery afebrile trend WBC covid neg 05/26 GNR noted in peritoneal fluid Endo - stress hyperglycemia; obese BG control PRN History Interval history: Complaint of abdominal wall tenderness. Denies nausea, vomiting. He states that she would like her stitches removed. I counseled the patient on the gravity of the procedure she went through and removing the dressing at this time would not be advisable. Patient denies flatus or having any BM Hospitalist Physical - Physical exam Narrative exam: Physical Exam: VITAL SIGNS: Reviewed. GENERAL: The patient appears normally developed, Vital signs as documented. HEAD: No signs of head trauma. EYES: Pupils are equal. Extraocular motions intact. EARS: Hearing grossly intact. MOUTH: Oropharynx is normal. NECK: No adenopathy, no JVD. CHEST: Chest with clear breath sounds bilaterally. No wheezes, rales, or rhonchi. CARDIAC: Regular rate and rhythm. S1 and S2, without murmurs, gallops, or rubs. VASCULAR: No Edema. Peripheral pulses normal and equal in all extremities. ABDOMEN: Soft, non tender and non distended. No rebound or guarding, and no masses palpated. Bowel Sounds normal. MUSCULOSKELETAL: Good range of motion of all major joints. Extremities without clubbing, cyanosis or edema. NEUROLOGIC EXAM: Alert and oriented x 4. no focal sensory or strength deficits. PSYCHIATRIC: Mood normal. SKIN: detail exam as documented in skin assessment - Constitutional Vitals: Temp Pulse Resp BP Pulse Ox 98.1 F 67 17 124/58 94 05/30/22 04:00 05/30/22 12:27 05/30/22 12:27 05/30/22 08:26 05/30/22 12:38 General appearance: Present: no acute distress, well-nourished, obese HEART Score - HEART Score Troponin: Troponin T < 0.010 ng/mL (0.00-0.029) 05/26/22 12:51 Results - Labs CBC & Chem 7: 05/29/22 05:10 05/29/22 05:10 Labs: Laboratory Last Values WBC 12.7 K/mm3 (4.5-11.0) H 05/29/22 05:10 RBC 4.03 M/mm3 (3.65-5.03) 05/29/22 05:10 Hgb 10.8 gm/dl (10.1-14.3) 05/29/22 05:10 Hct 33.9 % (30.3-42.9) 05/29/22 05:10 MCV 84 fl (79-97) 05/29/22 05:10 MCH 27 pg (28-32) L 05/29/22 05:10 MCHC 32 % (30-34) 05/29/22 05:10 RDW 17.0 % (13.2-15.2) H 05/29/22 05:10 Plt Count 325 K/mm3 (140-440) 05/29/22 05:10 Add Manual Diff Complete 05/27/22 06:13 Total Counted 100 05/27/22 06:13 Seg Neutrophils % Telephone Technician 05/27/22 06:13 Seg Neuts % (Manual) 89.0 % (40.0-70.0) H 05/27/22 06:13 Band Neutrophils % 3.0 % 05/27/22 06:13 Lymphocytes % (Manual) 4.0 % (13.4-35.0) L 05/27/22 06:13 Reactive Lymphs % (Man) 1.0 % 05/27/22 06:13 Monocytes % (Manual) 2.0 % (0.0-7.3) 05/27/22 06:13 Eosinophils % (Manual) 0 % (0.0-4.3) 05/27/22 06:13 Basophils % (Manual) 0 % (0.0-1.8) 05/27/22 06:13 Metamyelocytes % 1.0 % 05/27/22 06:13 Myelocytes % 0 % 05/27/22 06:13 Promyelocytes % 0 % 05/27/22 06:13 Blast Cells % 0 % 05/27/22 06:13 Nucleated RBC % Not Reportable 05/27/22 06:13 Seg Neutrophils # Man 9.1 K/mm3 (1.8-7.7) H 05/27/22 06:13 Band Neutrophils # 0.3 K/mm3 05/27/22 06:13 Lymphocytes # (Manual) 0.4 K/mm3 (1.2-5.4) L 05/27/22 06:13 Abs React Lymphs (Man) 0.1 K/mm3 05/27/22 06:13 Monocytes # (Manual) 0.2 K/mm3 (0.0-0.8) 05/27/22 06:13 Eosinophils # (Manual) 0.0 K/mm3 (0.0-0.4) 05/27/22 06:13 Basophils # (Manual) 0.0 K/mm3 (0.0-0.1) 05/27/22 06:13 Metamyelocytes # 0.1 K/mm3 05/27/22 06:13 Myelocytes # 0.0 K/mm3 05/27/22 06:13 Promyelocytes # 0.0 K/mm3 05/27/22 06:13 Blast Cells # 0.0 K/mm3 05/27/22 06:13 WBC Morphology Not Reportable 05/27/22 06:13 Hypersegmented Neuts Not Reportable 05/27/22 06:13 Hyposegmented Neuts Not Reportable 05/27/22 06:13 Hypogranular Neuts Not Reportable 05/27/22 06:13 Smudge Cells Not Reportable 05/27/22 06:13 Toxic Granulation Not Reportable 05/27/22 06:13 Toxic Vacuolation Not Reportable 05/27/22 06:13 Dohle Bodies Not Reportable 05/27/22 06:13 Pelger-Huet Anomaly Not Reportable 05/27/22 06:13 Yesica Rods Not Reportable 05/27/22 06:13 Platelet Estimate Consistent w auto 05/27/22 06:13 Clumped Platelets Few 05/27/22 06:13 Plt Clumps, EDTA Not Reportable 05/27/22 06:13 Large Platelets Rare 05/27/22 06:13 Giant Platelets Not Reportable 05/27/22 06:13 Platelet Satelliting Not Reportable 05/27/22 06:13 Plt Morphology Comment Not Reportable 05/27/22 06:13 RBC Morphology Not Reportable 05/27/22 06:13 Dimorphic RBCs Not Reportable 05/27/22 06:13 Polychromasia Not Reportable 05/27/22 06:13 Hypochromasia Not Reportable 05/27/22 06:13 Poikilocytosis Not Reportable 05/27/22 06:13 Anisocytosis Not Reportable 05/27/22 06:13 Microcytosis Not Reportable 05/27/22 06:13 Macrocytosis Not Reportable 05/27/22 06:13 Spherocytes Not Reportable 05/27/22 06:13 Pappenheimer Bodies Not Reportable 05/27/22 06:13 Sickle Cells Not Reportable 05/27/22 06:13 Target Cells Not Reportable 05/27/22 06:13 Tear Drop Cells Not Reportable 05/27/22 06:13 Ovalocytes Not Reportable 05/27/22 06:13 Helmet Cells Not Reportable 05/27/22 06:13 Lr-[place] Bodies Not Reportable 05/27/22 06:13 [place] Rings Not Reportable 05/27/22 06:13 [place] Cells 1+ 05/27/22 06:13 Bite Cells Not Reportable 05/27/22 06:13 Crenated Cell Not Reportable 05/27/22 06:13 Elliptocytes Few 05/27/22 06:13 Acanthocytes (Spur) Not Reportable 05/27/22 06:13 Rouleaux Not Reportable 05/27/22 06:13 Hemoglobin C Crystals Not Reportable 05/27/22 06:13 Schistocytes Not Reportable 05/27/22 06:13 Malaria parasites Not Reportable 05/27/22 06:13 Edd Bodies Not Reportable 05/27/22 06:13 Hem Pathologist Commnt No 05/27/22 06:13 PT 14.8 Sec. (12.2-14.9) 05/26/22 12:51 INR 1.04 (0.87-1.13) 05/26/22 12:51 Sodium 136 mmol/L (137-145) L 05/29/22 05:10 Potassium 3.9 mmol/L (3.6-5.0) D 05/29/22 05:10 Chloride 105.1 mmol/L (98-107) 05/29/22 05:10 Carbon Dioxide 21 mmol/L (22-30) L 05/29/22 05:10 Anion Gap 14 mmol/L 05/29/22 05:10 BUN 36 mg/dL (7-17) H 05/29/22 05:10 Creatinine 0.9 mg/dL (0.6-1.2) 05/29/22 05:10 Estimated GFR > 60 ml/min 05/29/22 05:10 BUN/Creatinine Ratio 40 % 05/29/22 05:10 Glucose 120 mg/dL (65-100) H 05/29/22 05:10 POC Glucose 103 mg/dL (70-105) 05/28/22 23:54 Lactic Acid 1.80 mmol/L (0.7-2.0) 05/26/22 12:51 Calcium 8.2 mg/dL (8.4-10.2) L 05/29/22 05:10 Phosphorus 3.50 mg/dL (2.5-4.5) 05/28/22 03:49 Magnesium 2.10 mg/dL (1.7-2.3) 05/29/22 05:10 Total Bilirubin 0.40 mg/dL (0.1-1.2) 05/27/22 06:13 AST 19 units/L (5-40) 05/27/22 06:13 ALT 11 units/L (7-56) 05/27/22 06:13 Alkaline Phosphatase 46 units/L (35-129) 05/27/22 06:13 Ammonia 19.0 umol/L (25-60) L 05/26/22 12:51 Total Creatine Kinase 262 units/L (30-135) H 05/26/22 12:51 Troponin T < 0.010 ng/mL (0.00-0.029) 05/26/22 12:51 NT-Pro-B Natriuret Pep 2054 pg/mL (0-900) H 05/26/22 12:51 Total Protein 5.3 g/dL (6.3-8.2) L D 05/27/22 06:13 Albumin 1.9 g/dL (3.9-5) L 05/27/22 06:13 Albumin/Globulin Ratio 0.6 % 05/27/22 06:13 TSH 2.890 mlU/mL (0.270-4.200) 05/26/22 12:51 Urine Color Yellow (Yellow) 05/27/22 15:14 Urine Turbidity Clear (Clear) 05/27/22 15:14 Urine pH 5.0 (5.0-7.0) 05/27/22 15:14 Ur Specific [place] 1.020 (1.003-1.030) 05/27/22 15:14 Urine Protein <15 mg/dl mg/dL (Negative) 05/27/22 15:14 Urine Glucose (UA) Neg mg/dL (Negative) 05/27/22 15:14 Urine Ketones Neg mg/dL (Negative) 05/27/22 15:14 Urine Blood Neg (Negative) 05/27/22 15:14 Urine Nitrite Neg (Negative) 05/27/22 15:14 Urine Bilirubin Neg (Negative) 05/27/22 15:14 Urine Urobilinogen < 2.0 mg/dL (<2.0) 05/27/22 15:14 Ur Leukocyte Esterase Neg (Negative) 05/27/22 15:14 Urine WBC (Auto) 26.0 /HPF (0.0-6.0) H 05/27/22 15:14 Urine RBC (Auto) 5.0 /HPF (0.0-6.0) 05/27/22 15:14 U Epithel Cells (Auto) < 1.0 /HPF (0-13.0) 05/27/22 15:14 Urine Bacteria (Auto) 1+ /HPF (Negative) 05/27/22 15:14 Ur Transition Epith Cell 2 /HPF 05/26/22 02:15 Urine Mucus Few /HPF 05/27/22 15:14 Urine Creatinine 92.7 mg/dL (0.1-20.0) H 05/27/22 15:13 Urine Sodium 10 mmol/L 05/27/22 19:00 Valproic Acid 45.5 ug/mL (50-100) L 05/26/22 12:51 Coronavirus (PCR) Negative (Negative) 05/27/22 11:46 Blood Type A POSITIVE 05/26/22 15:06 Antibody Screen Negative 05/26/22 15:06 Microbiology: Microbiology 05/26/22 12:51 Peripheral/Venous Blood Culture - Preliminary NO GROWTH AFTER 72 HOURS 05/26/22 12:51 Peripheral/Venous Blood Culture - Preliminary NO GROWTH AFTER 72 HOURS 05/26/22 18:24 Peritioneal Dialysate Peritoneal Dialysate Culture - Preliminary Escherichia Coli Marrero/IV: Voiding Method Indwelling Catheter Active Medications - Current Medications Current Medications: Generic Name Dose Route Start Last Admin Trade Name Freq PRN Reason Stop Dose Admin Famotidine 20 mg 05/27/22 22:00 05/30/22 09:21 Famotidine 20 Mg/2 Ml Inj IV 20 mg BID ROLANDO Administration Haloperidol Lactate 2.5 mg 05/28/22 10:52 Haloperidol Lactate 5 Mg/1 Ml Inj IV Q6H PRN Agitation Heparin Sodium (Porcine) 5,000 unit 05/27/22 22:00 05/30/22 13:05 Heparin 5,000 Unit/1 Ml Vial SUB-Q 5,000 unit Q8HR ROLANDO Administration Hydromorphone HCl 0.5 mg 05/26/22 16:14 Hydromorphone 0.5 Mg/0.5 Ml Inj IV Q3H PRN Pain , Severe (7-10) Dextrose/Sodium Chloride 1,000 mls @ 100 mls/hr 05/26/22 23:46 05/30/22 04:59 D5/0.45ns IV 100 mls/hr DIRECT ROLANDO Administration Metronidazole 500 mg in 100 mls @ 100 mls/hr 05/27/22 13:00 05/30/22 04:59 Flagyl 500 Mg/100 Ml IV 100 mls/hr Q8H ROLANDO Administration Protocol Cefepime HCl 2 gm in 100 mls @ 200 mls/hr 05/28/22 10:00 05/30/22 09:20 Cefepime/Ns 2 Gm/100 Ml IV 200 mls/hr Q12H ROLANDO Administration Valproate Sodium 500 mg/ 105 mls @ 100 mls/hr 05/28/22 12:00 05/30/22 10:49 Sodium Chloride IV 100 mls/hr Q12HR ROLANDO Administration Metoprolol Tartrate 12.5 mg 05/29/22 22:00 05/30/22 11:47 Metoprolol Tartrate 25 Mg Tab PO 12.5 mg BID ROLANDO Administration Morphine Sulfate 2 mg 05/26/22 16:14 05/30/22 13:05 Morphine 2 Mg/1 Ml Inj IV 2 mg Q4H PRN Administration Pain, Moderate (4-6) Morphine Sulfate 4 mg 05/26/22 16:16 Morphine 4 Mg/1 Ml Inj IV Q4H PRN Pain , Severe (7-10) Sodium Chloride 10 ml 05/26/22 22:00 05/30/22 09:22 Sodium Chloride 0.9% 10 Ml Flush Syringe IV 10 ml BID ROLANDO Administration Sodium Chloride 10 ml 05/26/22 16:11 Sodium Chloride 0.9% 10 Ml Flush Syringe IV PRN PRN LINE FLUSH
--- NOTE | 2022-05-30 21:19 | Progress Note ---
Assessment and Plan 76 YO Female with Vascular Dementia, Cerebral Atherosclerosis, Debility, Hypothyroidism presented to ED for evaluation. Patient has diminished cognition and provides minimal history. Patient reported "I feel weak and I fell down". Patient son is at bedside and provides additional history. Patient son reported that patient has also experienced generalized weakness over the past 1 week with worsening symptoms over the past 2 days. Patient also complained of lower abdominal pain over the past 3 days. Patient was ambulating today and experienced a fall from a standing position landing against a wall and sustaining a laceration to area. EMS was notified and upon arrival the patient was found to be in distress and subsequent transported to [facility] for further care and evaluation of the aforementioned symptoms. Patient found to have a systolic blood pressure in the 90s. Patient found to have systemic inflammatory response syndrome, metabolic acidosis, acute kidney injury, diastolic CHF, as well as perforated viscus, colitis. Surgery team consulted in ED. Patient taken urgently to operating room for surgical intervention. No reports of fever, chills, chest pain, palpitation, productive cough, skin rash, recent contact, known exposure to COVID-19. No history of smoking, alcohol or drug abuse. Retired . Worked in [employer] and has two children. Allergic to Carbazepine, Clonazepam, Codeine and [place]. 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 Patient is afebrile and stable. waiting on CEA level and final path results. Patient advanced to full liquid diet. Recommended ambulation and physical therapy. Patient was seen in telemetry. Patient alert, awake. Resting on room air. O2 saturation 93%. No acute respiratory distress at rest. Patient afebrile. Has leukocytosis. Blood pressure 124/58, Pulse 66, Respirations 18. Chest xray 05/26/22 reported No acute abnormality of the chest. Patient is on bactrim, Pepcid and S/C Heparin. Recommend albuterol aerosol treatments prn for shortness of breath or mucociliary clearence. Continue incentive spirometry. I spent critical care time of 40 minutes, talking to the patient, obtaining history, Review the chart, examine the patient, review chest xray and labs, talking to the nursing staff and work up plan of treatment. - Patient Problems (1) Abdominal pain Current Visit: Yes Status: Acute Plan to address problem: S/P exploratory laporotomy and Bowel resection for perforation and tumor. (2) CHF (congestive heart failure) Current Visit: Yes Status: Acute Qualifiers: Heart failure type: diastolic Heart failure chronicity: acute Qualified Code(s): I50.31 - Acute diastolic (congestive) heart failure Plan to address problem: Management as per primary care and cardiology. (3) Closed head injury Current Visit: Yes Status: Acute Plan to address problem: Management as per primary care, neurology and neurosurgery. (4) Hypotension Current Visit: Yes Status: Acute Plan to address problem: Patients blood pressure improved. To days blood pressure 124/58. (5) Scalp laceration Current Visit: Yes Status: Acute Qualifiers: Encounter type: initial encounter Qualified Code(s): S01.01XA - Laceration without foreign body of scalp, initial encounter Plan to address problem: Primary care and neurosurgeon. Subjective Date of service: 05/30/22 Principal diagnosis: A. fib, perforated abdominal viscus Interval history: 76 YO Female with Vascular Dementia, Cerebral Atherosclerosis, Debility, Hypothyroidism presented to ED for evaluation. Patient has diminished cognition and provides minimal history. Patient reported "I feel weak and I fell down". Patient son is at bedside and provides additional history. Patient son reported that patient has also experienced generalized weakness over the past 1 week with worsening symptoms over the past 2 days. Patient also complained of lower abdominal pain over the past 3 days. Patient was ambulating today and experienced a fall from a standing position landing against a wall and sustaining a laceration to area. EMS was notified and upon arrival the patient was found to be in distress and subsequent transported to [facility] for further care and evaluation of the aforementioned symptoms. Patient found to have a systolic blood pressure in the 90s. Patient found to have systemic inflammatory response syndrome, metabolic acidosis, acute kidney injury, diastolic CHF, as well as perforated viscus, colitis. Surgery team consulted in ED. Patient t aken urgently to operating room for surgical intervention. No reports of fever, chills, chest pain, palpitation, productive cough, skin rash, recent contact, known exposure to COVID-19. No history of smoking, alcohol or drug abuse. 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 Patient is afebrile and stable. waiting on CEA level and final path results. Patient advanced to full liquid diet. Recommended ambulation and physical therapy. Patient alert, awake. Resting on room air. O2 saturation 93%. No acute respiratory distress at rest. Patient afebrile. Has leukocytosis. Blood pressure 124/58, Pulse 66, Respirations 18. Chest xray 05/26/22 reported No acute abnormality of the chest. Patient is on bactrim, Pepcid and S/C Heparin. Recommend incentive spirometry. Objective Vital Signs - 12hr 05/30/22 05/30/22 05/30/22 12:27 12:38 19:40 Temperature 98.0 F Pulse Rate 63 Pulse Rate [ 67 From Monitor] Respiratory 17 20 Rate Blood Pressure 135/50 O2 Sat by Pulse 93 94 93 Oximetry 05/30/22 20:21 Temperature Pulse Rate Pulse Rate [ From Monitor] Respiratory Rate Blood Pressure O2 Sat by Pulse 95 Oximetry Constitutional: no acute distress, alert Eyes: non-icteric Neck: supple, no lymphadenopathy Effort: normal Ascultation: Bilateral: diminished breath sounds Cardiovascular: regular rate and rhythm Gastrointestinal: normoactive bowel sounds, soft, non-tender Integumentary: normal Extremities: no cyanosis, no edema Neurologic: normal mental status, non-focal exam, pupils equal and round, CN II- XII normal Psychiatric: mood appropriate, affect normal CBC and BMP: 05/31/22 05:56 05/31/22 05:56 ABG, PT/INR, D-dimer: PT/INR, D-dimer PT 14.8 Sec. (12.2-14.9) 05/26/22 12:51 INR 1.04 (0.87-1.13) 05/26/22 12:51 Abnormal lab findings: Abnormal Labs 05/26/22 05/26/22 05/26/22 02:15 12:51 12:51 WBC MCH 27 L RDW 17.0 H Plt Count Seg Neuts % (Manual) 91.0 H Lymphocytes % (Manual) 2.0 L Seg Neutrophils # Man 8.1 H Lymphocytes # (Manual) 0.2 L Sodium Potassium Carbon Dioxide 20 L BUN 72 H Creatinine 4.0 H Glucose POC Glucose Calcium Phosphorus 4.70 H Magnesium Ammonia Total Creatine Kinase 262 H NT-Pro-B Natriuret Pep Total Protein Albumin 2.9 L Urine WBC (Auto) 20.0 H Urine Creatinine Valproic Acid 05/26/22 05/26/22 05/26/22 12:51 12:51 12:51 WBC MCH RDW Plt Count Seg Neuts % (Manual) Lymphocytes % (Manual) Seg Neutrophils # Man Lymphocytes # (Manual) Sodium Potassium Carbon Dioxide BUN Creatinine Glucose POC Glucose Calcium Phosphorus Magnesium Ammonia 19.0 L Total Creatine Kinase NT-Pro-B Natriuret Pep 2054 H Total Protein Albumin Urine WBC (Auto) Urine Creatinine Valproic Acid 45.5 L 05/27/22 05/27/22 05/27/22 06:13 06:13 15:13 WBC MCH 27 L RDW 16.9 H Plt Count 485 H Seg Neuts % (Manual) 89.0 H Lymphocytes % (Manual) 4.0 L Seg Neutrophils # Man 9.1 H Lymphocytes # (Manual) 0.4 L Sodium 136 L Potassium Carbon Dioxide 20 L BUN 57 H Creatinine 2.2 H Glucose 208 H POC Glucose Calcium 8.0 L Phosphorus Magnesium Ammonia Total Creatine Kinase NT-Pro-B Natriuret Pep Total Protein 5.3 L D Albumin 1.9 L Urine WBC (Auto) Urine Creatinine 92.7 H Valproic Acid 05/27/22 05/27/22 05/28/22 15:14 18:31 00:19 WBC MCH RDW Plt Count Seg Neuts % (Manual) Lymphocytes % (Manual) Seg Neutrophils # Man Lymphocytes # (Manual) Sodium Potassium Carbon Dioxide BUN Creatinine Glucose POC Glucose 155 H 135 H Calcium Phosphorus Magnesium Ammonia Total Creatine Kinase NT-Pro-B Natriuret Pep Total Protein Albumin Urine WBC (Auto) 26.0 H Urine Creatinine Valproic Acid 05/28/22 05/28/22 05/28/22 03:49 03:49 11:46 WBC MCH 27 L RDW 17.3 H Plt Count Seg Neuts % (Manual) Lymphocytes % (Manual) Seg Neutrophils # Man Lymphocytes # (Manual) Sodium 134 L Potassium 3.2 L Carbon Dioxide 20 L BUN 49 H Creatinine 1.4 H Glucose 190 H POC Glucose 130 H Calcium 8.0 L Phosphorus Magnesium 2.40 H Ammonia Total Creatine Kinase NT-Pro-B Natriuret Pep Total Protein Albumin Urine WBC (Auto) Urine Creatinine Valproic Acid 05/29/22 05/29/22 05:10 05:10 WBC 12.7 H MCH 27 L RDW 17.0 H Plt Count Seg Neuts % (Manual) Lymphocytes % (Manual) Seg Neutrophils # Man Lymphocytes # (Manual) Sodium 136 L Potassium Carbon Dioxide 21 L BUN 36 H Creatinine Glucose 120 H POC Glucose Calcium 8.2 L Phosphorus Magnesium Ammonia Total Creatine Kinase NT-Pro-B Natriuret Pep Total Protein Albumin Urine WBC (Auto) Urine Creatinine Valproic Acid Chest x-ray: report reviewed, image reviewed Additional Studies: [facility] 1 VIEW 05/26/2022 11:53 AM INDICATION / CLINICAL INFORMATION: Weakness. COMPARISON: None available. FINDINGS: SUPPORT DEVICES: None. HEART / MEDIASTINUM: No significant abnormality. LUNGS / PLEURA: The lungs are clear with elevation of the right hemidiaphragm. No significant pleural effusion. No pneumothorax. ADDITIONAL FINDINGS: No significant additional findings. IMPRESSION: 1. No acute abnormality of the chest.
[2022-05-30] MEDS: risperiDONE 1 MG TAB PO SCH (21:24)
[2022-05-30] MEDS: DIVALPROEX DR 250 MG TAB PO SCH (21:24)
[2022-05-30] MEDS ORDERED: NON-FORMULARY EACH (Risperidone [Risperdal] 2 MG Tablet) PO SCH (22:00)
[2022-05-31 06:20] LABS: Hematocrit 34.2 % (30.3-42.9); Hemoglobin 11.1 gm/dl (10.1-14.3); Mean Corpuscular HGB Conc 32 % (30-34); Mean Corpuscular Volume 84 fl (79-97); Platelet Count 181 K/mm3 (140-440); Red Blood Count 4.08 M/mm3 (3.65-5.03); Red Cell Distribution Width 17.1 % (13.2-15.2)
[2022-05-31 06:29] LABS: Blood Urea Nitrogen 18 mg/dL (7-17); Calcium 8.1 mg/dL (8.4-10.2); Hemolysis Index 4
[2022-05-31 06:30] LABS: BUN/Creatinine Ratio 30
[2022-05-31] MEDS: metroNIDAZOLE/NS 500 MG/100 ML 500 MG/100 ML BAG IV SCH ×3 (07:28→22:24)
[2022-05-31] MEDS: HEPARIN 5,000 UNIT/1 ML VIAL SUB-Q SCH ×3 (07:33→22:29)
[2022-05-31 08:42] LABS: Anisocytosis Few; Band Neutrophils # (Manual) 0.3 K/mm3; Basophils % (Manual) 0 % (0.0-1.8); Myelocytes # (Manual) 0.8 K/mm3; Platelet Estimate Consistent w Auto; Total Cells Counted 100
--- NOTE | 2022-05-31 10:29 | Progress Note ---
Assessment and Plan Patient is a 76-year-old female with vascular dementia with complaint of 1 week having abdominal pain with some loose stools. But still eating. Came to the hospital after a fall. An dfound to have perforated abdominal viscus. Patient was taken to surgery and postoperatively went to A. fib. Afib w/ RVR-currently sinus rhythm TYRESE Hypotension Perforated abdominal viscus-surgery following Scalp laceration Echo 05/26/2022-EF 50 to 55%. Right ventricle is mildly dilated. Right ventricle is mildly hypokinetic. Left atrium is normal in size. Trace aortic regurgitation. Trace mitral regurgitation. Trace tricuspid regurgitation. Trace pulmonic regurgitation Plan: Telemetry reviewed patient remains in sinus rhythm 60s-70s Continue metoprolol 12.5 mg p.o. twice daily with sips of water. [id number] score is 2, patient's A. fib lasted less than 48 hours following surgery, and has normal left atrium. No indication at this time for anticoagulation Cardiac status appears otherwise stable Patient seen in conjunction with Dr. Youngblood who agrees with this plan of care - Patient Problems (1) TYRESE (acute kidney injury) Current Visit: Yes Status: Acute (2) Atrial fibrillation Current Visit: Yes Status: Acute Qualifiers: Atrial fibrillation type: unspecified Qualified Code(s): I48.91 - Unspecified atrial fibrillation (3) Hypotension Current Visit: Yes Status: Acute (4) Perforated abdominal viscus Current Visit: Yes Status: Acute (5) Scalp laceration Current Visit: Yes Status: Acute Qualifiers: Encounter type: initial encounter Qualified Code(s): S01.01XA - Laceration without foreign body of scalp, initial encounter Subjective Date of service: 05/31/22 Principal diagnosis: A. fib, perforated abdominal viscus Interval history: Patient resting in bed in no acute distress. Sinus 60s-70s on monitor with no event Objective Vital Signs Temp Pulse Pulse Resp BP Pulse Ox 05/31/22 10:00 95 05/31/22 08:20 84 17 101/60 05/31/22 08:17 101/60 05/31/22 07:54 97.8 F 65 18 142/56 95 05/31/22 04:01 97.3 F L 61 16 133/56 95 05/31/22 00:00 96 05/30/22 23:16 97.3 F L 63 16 123/46 96 05/30/22 21:25 66 135/50 05/30/22 20:21 95 05/30/22 19:40 98.0 F 63 20 135/50 93 05/30/22 12:38 94 05/30/22 12:27 67 17 93 - Physical Examination General: No Apparent Distress HEENT: Positive: PERRL, Mucus Membranes Moist Neck: Positive: neck supple, trachea midline Cardiac: Positive: Reg Rate and Rhythm Lungs: Positive: Normal Breath Sounds Neuro: Positive: Grossly Intact Abdomen: Positive: Soft, Active Bowel Sounds, Other (Surgical dressings) Skin: Positive: Clear Incision: Cardiac Cath Site Musculoskeletal: No Pain, Normal Range of Motion Extremities: Absent: edema - Labs and Meds CBC 05/31/22 Range/Units 05:56 WBC 12.7 H (4.5-11.0) K/mm3 RBC 4.08 (3.65-5.03) M/mm3 Hgb 11.1 (10.1-14.3) gm/dl Hct 34.2 (30.3-42.9) % Plt Count 181 (140-440) K/mm3 Comprehensive Metabolic Panel 05/31/22 Range/Units 05:56 Sodium 135 L (137-145) mmol/L Potassium 3.7 (3.6-5.0) mmol/L Chloride 104.6 (98-107) mmol/L Carbon Dioxide 22 (22-30) mmol/L BUN 18 H (7-17) mg/dL Creatinine 0.6 (0.6-1.2) mg/dL Glucose 92 (65-100) mg/dL Calcium 8.1 L (8.4-10.2) mg/dL - Imaging and Cardiology Echo: report reviewed - Telemetry EKG Rhythm: Sinus Rhythm - EKG Sinus rhythms and dysrhythmias: sinus rhythm
[2022-05-31] MEDS: FAMOTIDINE 20 MG/2 ML INJ IV SCH (10:48)
[2022-05-31] MEDS: LEVOTHYROXINE 88 MCG TAB PO SCH (10:48)
[2022-05-31] MEDS: CEFEPIME/NS 2 GM/100 ML 2 GM/100 ML BAG IV SCH ×2 (10:49→22:39)
[2022-05-31] MEDS: METOPROLOL TARTRATE 25 MG TAB PO SCH ×2 (10:49→22:29)
--- NOTE | 2022-05-31 11:28 | Progress Note ---
Assessment and Plan Postop day #5 status post exploratory laparotomy with extended right hemicolectomy and ileal colic anastomosis for perforated transverse colon tumor. Patient is afebrile and stable. waiting on CEA level and final path results. will advance to full liquids. Encourage ambulation and physical therapy. Should DC Marrero as soon as possible. Subjective Date of service: 05/31/22 Narrative: No acute overnight. Patient is passing flatus and tolerating clear liquids. Patient denies any pain. Objective Vital Signs - 12hr 05/31/22 05/31/22 05/31/22 00:00 04:01 07:54 Temperature 97.3 F L 97.8 F Pulse Rate 61 65 Respiratory 16 18 Rate Blood Pressure 133/56 142/56 O2 Sat by Pulse 96 95 95 Oximetry 05/31/22 05/31/22 05/31/22 08:17 08:20 10:00 Temperature Pulse Rate 84 Respiratory 17 Rate Blood Pressure 101/60 101/60 O2 Sat by Pulse 95 Oximetry - General physical appearance no distress, no pain - Eyes PERRL - ENT no hearing loss - Respiratory normal expansion, normal respiratory effort - Abdomen soft, not tender, not distended - Labs 05/31/22 05:56 05/31/22 05:56 Diabetes panel 05/31/22 Range/Units 05:56 Sodium 135 L (137-145) mmol/L Potassium 3.7 (3.6-5.0) mmol/L Chloride 104.6 (98-107) mmol/L Carbon Dioxide 22 (22-30) mmol/L BUN 18 H (7-17) mg/dL Creatinine 0.6 (0.6-1.2) mg/dL Glucose 92 (65-100) mg/dL Calcium 8.1 L (8.4-10.2) mg/dL Calcium panel 05/31/22 Range/Units 05:56 Calcium 8.1 L (8.4-10.2) mg/dL Pituitary panel 05/31/22 Range/Units 05:56 Sodium 135 L (137-145) mmol/L Potassium 3.7 (3.6-5.0) mmol/L Chloride 104.6 (98-107) mmol/L Carbon Dioxide 22 (22-30) mmol/L BUN 18 H (7-17) mg/dL Creatinine 0.6 (0.6-1.2) mg/dL Glucose 92 (65-100) mg/dL Calcium 8.1 L (8.4-10.2) mg/dL Adrenal panel 05/31/22 Range/Units 05:56 Sodium 135 L (137-145) mmol/L Potassium 3.7 (3.6-5.0) mmol/L Chloride 104.6 (98-107) mmol/L Carbon Dioxide 22 (22-30) mmol/L BUN 18 H (7-17) mg/dL Creatinine 0.6 (0.6-1.2) mg/dL Glucose 92 (65-100) mg/dL Calcium 8.1 L (8.4-10.2) mg/dL
--- NOTE | 2022-05-31 11:31 | Progress Note ---
Assessment and Plan Assessment and plan: 76 YO Female with Vascular Dementia, Cerebral Atherosclerosis, Debility, Hypothyroidism presents to ED for evaluation. Patient has diminished cognition and provides minimal history. Patient reports "I feel weak and I fell down". Patient son is at bedside and provides additional history. Patient son reports that patient has also experienced generalized weakness over the past 1 week with worsening symptoms over the past 2 days. Patient also complained of lower abdominal pain over the past 3 days. Patient was ambulating today and experienced a fall from a standing position landing against a wall and sustaining a laceration to area. EMS was notified and upon arrival the patient was found to be in distress and subsequent transported to [facility] for further care and evaluation of the aforementioned symptoms. The patient was seen and evaluated emergency department. All lab and imaging studies reviewed. Patient found to have a systolic blood pressure in the 90s. Patient found to have systemic inflammatory response syndrome, metabolic acidosis, acute kidney injury, diastolic CHF, as well as perforated viscus, colitis. Surgery team consulted in ED. Patient taken urgently to operating room for surgical intervention. No reports of fever, chills, chest pain, palpitation, productive cough, skin rash, recent contact, known exposure to COVID-19. No prior admission for review. No medication listed at time of admission for reconciliation. Advanced care planning conducted in ED. 05/27: Drowsy but AAO, on 2L NC. Off pressor this am, remains in Afib rate control. Still on Amiodarone gtt per Cardio. Exp lap sites noted with no complications. Still with hypoactive BS this am. Keep patient NPO, NGT to LIS, and continue current IV Abx per General Surgery. PT/OT consulted. 05-28 NGT clamped; transfer orders placed 05/30: D/w Dr Amanda, surgery. NGT currently clamped, can be d/c. Patient can begin trial of sips of CLD. Monitor for BM. Will resume po meds. Cardiology recommendations re: rate control meds noted. 05/31: Adv to full liquid diet. D/c lyons. D/w Dr Cintron. Plan to pull drain tomorrow AM. Anticipate d/c to [facility] tomorrow. CM notified in rounds today. neuro: acute pain #Scalp Laceration #S/p Fall at home advanced care plannng neuro intact maew; follows commands pain well controlled PRN pain meds on home psych meds pt reports risperodone, depakote and clonazepam but then clonazepam listed as allergy pharm aware will need to clarify and convert to PO when taking PO pt/ot/st will be needed note pt had fall prior to admit no injuries noted or reported- imaging completed- see reports CV afib-new this admit no pressors normotensive afib - converted to SR overnight cards following add metop when able to take PO and then d/c IV amio Resp pulm insufficiency NC PRN needs aggressive pulm hygiene GI sp perf viscous and ex lap 05-26 #Perforated Abdominal Viscus #Perforated Transverse Colon Tumor #S/p Right Hemicolectomy strict NPO per Dr Amanda per nursing staff she passed liquid stool overnight pt does not report flatus - but she also did not know she had a BM inc BS today NG clamped 05/28 defer PO to GI pepcid hypok; peripheral edema; TYRESE- improving intake/output net pos 1.6L over 24 hours made 340 ml urine over 24 hours generalized edema trend and replace electrolytes IV PRN K this AM 3.9 replaced this AM remains on IVF hopefully this afternoon pt will be cleared for PO and IVF can be d/c she continues to have generalized edema and is consistently in positive fluid balance on a daily basis cr improving continue to monitor Heme-nap hgb stable no bleeding VTE ROLANDO ID- sp perf viscous cefipime and flagyl per gen surgery afebrile trend WBC covid neg 05/26 GNR noted in peritoneal fluid Endo - stress hyperglycemia; obese BG control PRN History Interval history: No acute complaints. Tolerating full liquid diet. Hospitalist Physical - Physical exam Narrative exam: Physical Exam: VITAL SIGNS: Reviewed. GENERAL: The patient appears normally developed, Vital signs as documented. HEAD: No signs of head trauma. EYES: Pupils are equal. Extraocular motions intact. EARS: Hearing grossly intact. MOUTH: Oropharynx is normal. NECK: No adenopathy, no JVD. CHEST: Chest with clear breath sounds bilaterally. No wheezes, rales, or rhonchi. CARDIAC: Regular rate and rhythm. S1 and S2, without murmurs, gallops, or r ubs. VASCULAR: No Edema. Peripheral pulses normal and equal in all extremities. ABDOMEN: Soft, non tender and non distended. No rebound or guarding, and no masses palpated. Bowel Sounds normal. MUSCULOSKELETAL: Good range of motion of all major joints. Extremities without clubbing, cyanosis or edema. NEUROLOGIC EXAM: Alert and oriented x 4. no focal sensory or strength deficits. PSYCHIATRIC: Mood normal. SKIN: detail exam as documented in skin assessment - Constitutional Vitals: Temp Pulse Resp BP Pulse Ox 97.8 F 84 17 101/60 95 05/31/22 07:54 05/31/22 08:20 05/31/22 08:20 05/31/22 08:20 05/31/22 10:00 General appearance: Present: no acute distress, well-nourished, obese HEART Score - HEART Score Troponin: Troponin T < 0.010 ng/mL (0.00-0.029) 05/26/22 12:51 Results - Labs CBC & Chem 7: 05/31/22 05:56 05/31/22 05:56 Labs: Laboratory Last Values WBC 12.7 K/mm3 (4.5-11.0) H 05/31/22 05:56 RBC 4.08 M/mm3 (3.65-5.03) 05/31/22 05:56 Hgb 11.1 gm/dl (10.1-14.3) 05/31/22 05:56 Hct 34.2 % (30.3-42.9) 05/31/22 05:56 MCV 84 fl (79-97) 05/31/22 05:56 MCH 27 pg (28-32) L 05/31/22 05:56 MCHC 32 % (30-34) 05/31/22 05:56 RDW 17.1 % (13.2-15.2) H 05/31/22 05:56 Plt Count 181 K/mm3 (140-440) 05/31/22 05:56 Add Manual Diff Complete 05/31/22 05:56 Total Counted 100 05/31/22 05:56 Seg Neutrophils % [employer] 05/27/22 06:13 Seg Neuts % (Manual) 70.0 % (40.0-70.0) 05/31/22 05:56 Band Neutrophils % 2.0 % 05/31/22 05:56 Lymphocytes % (Manual) 6.0 % (13.4-35.0) L 05/31/22 05:56 Reactive Lymphs % (Man) 0 % 05/31/22 05:56 Monocytes % (Manual) 3.0 % (0.0-7.3) 05/31/22 05:56 Eosinophils % (Manual) 4.0 % (0.0-4.3) 05/31/22 05:56 Basophils % (Manual) 0 % (0.0-1.8) 05/31/22 05:56 Metamyelocytes % 9.0 % 05/31/22 05:56 Myelocytes % 6.0 % 05/31/22 05:56 Promyelocytes % 0 % 05/31/22 05:56 Blast Cells % 0 % 05/31/22 05:56 Nucleated RBC % Not Reportable 05/31/22 05:56 Seg Neutrophils # Man 8.9 K/mm3 (1.8-7.7) H 05/31/22 05:56 Band Neutrophils # 0.3 K/mm3 05/31/22 05:56 Lymphocytes # (Manual) 0.8 K/mm3 (1.2-5.4) L 05/31/22 05:56 Abs React Lymphs (Man) 0.0 K/mm3 05/31/22 05:56 Monocytes # (Manual) 0.4 K/mm3 (0.0-0.8) 05/31/22 05:56 Eosinophils # (Manual) 0.5 K/mm3 (0.0-0.4) H 05/31/22 05:56 Basophils # (Manual) 0.0 K/mm3 (0.0-0.1) 05/31/22 05:56 Metamyelocytes # 1.1 K/mm3 05/31/22 05:56 Myelocytes # 0.8 K/mm3 05/31/22 05:56 Promyelocytes # 0.0 K/mm3 05/31/22 05:56 Blast Cells # 0.0 K/mm3 05/31/22 05:56 WBC Morphology Not Reportable 05/31/22 05:56 Hypersegmented Neuts Not Reportable 05/31/22 05:56 Hyposegmented Neuts Not Reportable 05/31/22 05:56 Hypogranular Neuts Not Reportable 05/31/22 05:56 Smudge Cells Not Reportable 05/31/22 05:56 Toxic Granulation Not Reportable 05/31/22 05:56 Toxic Vacuolation Not Reportable 05/31/22 05:56 Dohle Bodies Not Reportable 05/31/22 05:56 Pelger-Huet Anomaly Not Reportable 05/31/22 05:56 Yesica Rods Not Reportable 05/31/22 05:56 Platelet Estimate Consistent w auto 05/31/22 05:56 Clumped Platelets Not Reportable 05/31/22 05:56 Plt Clumps, EDTA Not Reportable 05/31/22 05:56 Large Platelets Not Reportable 05/31/22 05:56 Giant Platelets Not Reportable 05/31/22 05:56 Platelet Satelliting Not Reportable 05/31/22 05:56 Plt Morphology Comment Not Reportable 05/31/22 05:56 RBC Morphology Not Reportable 05/31/22 05:56 Dimorphic RBCs Not Reportable 05/31/22 05:56 Polychromasia Not Reportable 05/31/22 05:56 Hypochromasia Not Reportable 05/31/22 05:56 Poikilocytosis Not Reportable 05/31/22 05:56 Anisocytosis Few 05/31/22 05:56 Microcytosis Not Reportable 05/31/22 05:56 Macrocytosis Not Reportable 05/31/22 05:56 Spherocytes Not Reportable 05/31/22 05:56 Pappenheimer Bodies Not Reportable 05/31/22 05:56 Sickle Cells Not Reportable 05/31/22 05:56 Target Cells Not Reportable 05/31/22 05:56 Tear Drop Cells Not Reportable 05/31/22 05:56 Ovalocytes Not Reportable 05/31/22 05:56 Helmet Cells Not Reportable 05/31/22 05:56 Lr-[place] Bodies Not Reportable 05/31/22 05:56 Recluse Rings Not Reportable 05/31/22 05:56 Mila Cells Not Reportable 05/31/22 05:56 Bite Cells Not Reportable 05/31/22 05:56 Crenated Cell Not Reportable 05/31/22 05:56 Elliptocytes Not Reportable 05/31/22 05:56 Acanthocytes (Spur) Not Reportable 05/31/22 05:56 Rouleaux Not Reportable 05/31/22 05:56 Hemoglobin C Crystals Not Reportable 05/31/22 05:56 Schistocytes Not Reportable 05/31/22 05:56 Malaria parasites Not Reportable 05/31/22 05:56 Edd Bodies Not Reportable 05/31/22 05:56 Hem Pathologist Commnt No 05/31/22 05:56 PT 14.8 Sec. (12.2-14.9) 05/26/22 12:51 INR 1.04 (0.87-1.13) 05/26/22 12:51 Sodium 135 mmol/L (137-145) L 05/31/22 05:56 Potassium 3.7 mmol/L (3.6-5.0) 05/31/22 05:56 Chloride 104.6 mmol/L (98-107) 05/31/22 05:56 Carbon Dioxide 22 mmol/L (22-30) 05/31/22 05:56 Anion Gap 12 mmol/L 05/31/22 05:56 BUN 18 mg/dL (7-17) H 05/31/22 05:56 Creatinine 0.6 mg/dL (0.6-1.2) 05/31/22 05:56 Estimated GFR > 60 ml/min 05/31/22 05:56 BUN/Creatinine Ratio 30 % 05/31/22 05:56 Glucose 92 mg/dL (65-100) 05/31/22 05:56 POC Glucose 75 mg/dL (70-105) 05/31/22 11:08 Lactic Acid 1.80 mmol/L (0.7-2.0) 05/26/22 12:51 Calcium 8.1 mg/dL (8.4-10.2) L 05/31/22 05:56 Phosphorus 3.50 mg/dL (2.5-4.5) 05/28/22 03:49 Magnesium 2.10 mg/dL (1.7-2.3) 05/29/22 05:10 Total Bilirubin 0.40 mg/dL (0.1-1.2) 05/27/22 06:13 AST 19 units/L (5-40) 05/27/22 06:13 ALT 11 units/L (7-56) 05/27/22 06:13 Alkaline Phosphatase 46 units/L (35-129) 05/27/22 06:13 Ammonia 19.0 umol/L (25-60) L 05/26/22 12:51 Total Creatine Kinase 262 units/L (30-135) H 05/26/22 12:51 Troponin T < 0.010 ng/mL (0.00-0.029) 05/26/22 12:51 NT-Pro-B Natriuret Pep 2054 pg/mL (0-900) H 05/26/22 12:51 Total Protein 5.3 g/dL (6.3-8.2) L D 05/27/22 06:13 Albumin 1.9 g/dL (3.9-5) L 05/27/22 06:13 Albumin/Globulin Ratio 0.6 % 05/27/22 06:13 TSH 2.890 mlU/mL (0.270-4.200) 05/26/22 12:51 Urine Color Yellow (Yellow) 05/27/22 15:14 Urine Turbidity Clear (Clear) 05/27/22 15:14 Urine pH 5.0 (5.0-7.0) 05/27/22 15:14 Ur Specific [place] 1.020 (1.003-1.030) 05/27/22 15:14 Urine Protein <15 mg/dl mg/dL (Negative) 05/27/22 15:14 Urine Glucose (UA) Neg mg/dL (Negative) 05/27/22 15:14 Urine Ketones Neg mg/dL (Negative) 05/27/22 15:14 Urine Blood Neg (Negative) 05/27/22 15:14 Urine Nitrite Neg (Negative) 05/27/22 15:14 Urine Bilirubin Neg (Negative) 05/27/22 15:14 Urine Urobilinogen < 2.0 mg/dL (<2.0) 05/27/22 15:14 Ur Leukocyte Esterase Neg (Negative) 05/27/22 15:14 Urine WBC (Auto) 26.0 /HPF (0.0-6.0) H 05/27/22 15:14 Urine RBC (Auto) 5.0 /HPF (0.0-6.0) 05/27/22 15:14 U Epithel Cells (Auto) < 1.0 /HPF (0-13.0) 05/27/22 15:14 Urine Bacteria (Auto) 1+ /HPF (Negative) 05/27/22 15:14 Ur Transition Epith Cell 2 /HPF 05/26/22 02:15 Urine Mucus Few /HPF 05/27/22 15:14 Urine Creatinine 92.7 mg/dL (0.1-20.0) H 05/27/22 15:13 Urine Sodium 10 mmol/L 05/27/22 19:00 Valproic Acid 45.5 ug/mL (50-100) L 05/26/22 12:51 Coronavirus (PCR) Negative (Negative) 05/27/22 11:46 Blood Type A POSITIVE 05/26/22 15:06 Antibody Screen Negative 05/26/22 15:06 Microbiology: Microbiology 05/26/22 12:51 Peripheral/Venous Blood Culture - Preliminary NO GROWTH AFTER 4 DAYS 05/26/22 12:51 Peripheral/Venous Blood Culture - Preliminary NO GROWTH AFTER 4 DAYS Lyons/IV: Voiding Method Indwelling Catheter Active Medications - Current Medications Current Medications: Generic Name Dose Route Start Last Admin Trade Name Freq PRN Reason Stop Dose Admin Divalproex Sodium 250 mg 05/30/22 22:00 05/30/22 21:[address] 250 Mg Tab PO 250 mg QHS ROLANDO Administration Famotidine 20 mg 05/27/22 22:00 05/31/22 10:48 Famotidine 20 Mg/2 Ml Inj IV 20 mg BID ROLANDO Administration Haloperidol Lactate 2.5 mg 05/28/22 10:52 Haloperidol Lactate 5 Mg/1 Ml Inj IV Q6H PRN Agitation Heparin Sodium (Porcine) 5,000 unit 05/27/22 22:00 05/31/22 07:33 Heparin 5,000 Unit/1 Ml Vial SUB-Q 5,000 unit Q8HR ROLANDO Administration Dextrose/Sodium Chloride 1,000 mls @ 100 mls/hr 05/26/22 23:46 05/30/22 04:59 D5/0.45ns IV 100 mls/hr DIRECT ROLANDO Administration Metronidazole 500 mg in 100 mls @ 100 mls/hr 05/27/22 13:00 05/31/22 07:28 Flagyl 500 Mg/100 Ml IV 100 mls/hr Q8H ROLANDO Administration Protocol Cefepime HCl 2 gm in 100 mls @ 200 mls/hr 05/28/22 10:00 05/31/22 10:49 Cefepime/Ns 2 Gm/100 Ml IV 200 mls/hr Q12H ROLANDO Administration Levothyroxine Sodium 88 mcg 05/31/22 10:00 05/31/22 10:48 Levothyroxine 88 Mcg Tab PO 88 mcg QAM ROLANDO Administration Metoprolol Tartrate 12.5 mg 05/29/22 22:00 05/31/22 10:49 Metoprolol Tartrate 25 Mg Tab PO 12.5 mg BID ROLANDO Administration Morphine Sulfate 2 mg 05/26/22 16:14 05/30/22 13:05 Morphine 2 Mg/1 Ml Inj IV 2 mg Q4H PRN Administration Pain, Moderate (4-6) Morphine Sulfate 4 mg 05/26/22 16:16 Morphine 4 Mg/1 Ml Inj IV Q4H PRN Pain , Severe (7-10) Risperidone 2 mg 05/30/22 22:00 05/30/22 21:24 Risperidone 1 Mg Tab PO 2 mg QHS ROLANDO Administration Sodium Chloride 10 ml 05/26/22 22:00 05/31/22 10:48 Sodium Chloride 0.9% 10 Ml Flush Syringe IV 10 ml BID ROLANDO Administration Sodium Chloride 10 ml 05/26/22 16:11 Sodium Chloride 0.9% 10 Ml Flush Syringe IV PRN PRN LINE FLUSH
--- NOTE | 2022-05-31 20:33 | Progress Note ---
Assessment and Plan 76 YO Female with Vascular Dementia, Cerebral Atherosclerosis, Debility, Hypothyroidism presented to ED for evaluation. Patient has diminished cognition and provides minimal history. Patient reported "I feel weak and I fell down". Patient son is at bedside and provides additional history. Patient son reported that patient has also experienced generalized weakness over the past 1 week with worsening symptoms over the past 2 days. Patient also complained of lower abdominal pain over the past 3 days. Patient was ambulating today and experienced a fall from a standing position landing against a wall and sustaining a laceration to area. EMS was notified and upon arrival the patient was found to be in distress and subsequent transported to [facility] for further care and evaluation of the aforementioned symptoms. Patient found to have a systolic blood pressure in the 90s. Patient found to have systemic inflammatory response syndrome, metabolic acidosis, acute kidney injury, diastolic CHF, as well as perforated viscus, colitis. Surgery team consulted in ED. Patient taken urgently to operating room for surgical intervention. No reports of fever, chills, chest pain, palpitation, productive cough, skin rash, recent contact, known exposure to COVID-19. No history of smoking, alcohol or drug abuse. Retired . Worked in [employer]/ and has two children. Allergic to Carbazepine, Clonazepam, Codeine and Hondo. 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 Patient is afebrile and stable. waiting on CEA level and final path results. Patient advanced to full liquid diet. Recommended ambulation and physical therapy. Patient was seen in telemetry. atient alert, awake. Resting on room air. O2 saturation 96%. No acute respiratory distress at rest. Patient complaining vomiting. Informed the the nurse to follow up on that. Patient afebrile. Has mild leukocytosis. Blood pressure 141/54, Pulse 66, Respirations 18. Chest xray 05/26/22 reported No acute abnormality of the chest. Patient is on bactrim, Pepcid and S/C Heparin. Recommend albuterol aerosol treatments prn for shortness of breath or mucociliary clearence. Continue incentive spirometry. - Patient Problems (1) Abdominal pain Current Visit: Yes Status: Acute Plan to address problem: S/P exploratory laporotomy and Bowel resection for perforation and tumor. (2) CHF (congestive heart failure) Current Visit: Yes Status: Acute Qualifiers: Heart failure type: diastolic Heart failure chronicity: acute Qualified Code(s): I50.31 - Acute diastolic (congestive) heart failure Plan to address problem: Management as per primary care and cardiology. (3) Closed head injury Current Visit: Yes Status: Acute Plan to address problem: Management as per primary care, neurology and neurosurgery. (4) Hypotension Current Visit: Yes Status: Acute Plan to address problem: Patients blood pressure improved. To days blood pressure 141/54. (5) Scalp laceration Current Visit: Yes Status: Acute Qualifiers: Encounter type: initial encounter Qualified Code(s): S01.01XA - Laceration without foreign body of scalp, initial encounter Plan to address problem: Primary care and neurosurgeon. Subjective Date of service: 05/31/22 Principal diagnosis: A. fib, perforated abdominal viscus Interval history: 76 YO Female with Vascular Dementia, Cerebral Atherosclerosis, Debility, Hypothyroidism presented to ED for evaluation. Patient has diminished cognition and provides minimal history. Patient reported "I feel weak and I fell down". Patient son is at bedside and provides additional history. Patient son reported that patient has also experienced generalized weakness over the past 1 week with worsening symptoms over the past 2 days. Patient also complained of lower abdominal pain over the past 3 days. Patient was ambulating today and experienced a fall from a standing position landing against a wall and sustaining a laceration to area. EMS was notified and upon arrival the patient was found to be in distress and subsequent transported to [facility] for further care and evaluation of the aforementioned symptoms. Patient found to have a systolic blood pressure in the 90s. Patient found to have systemic inflammatory response syndrome, metabolic acidosis, acute kidney injury, diastolic CHF, as well as perforated viscus, colitis. Surgery team consulted in ED. Patient taken urgently to operating room for surgical intervention. No reports of fever, chills, chest pain, palpitation, productive cough, skin rash, recent contact, known exposure to COVID-19. No history of smoking, alcohol or drug abuse. Retired . Worked in [employer]/ and has two children. Allergic to Carbazepine, Clonazepam, Codeine and Hondo. 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 Patient is afebrile and stable. waiting on CEA level and final path results. Patient advanced to full liquid diet. Recommended ambulation and physical therapy. Patient was seen in telemetry. Patient alert, awake. Resting on room air. O2 saturation 96%. No acute respiratory distress at rest. Patient complaining vomiting. Informed the the nurse to follow up on that. Patient afebrile. Has mild leukocytosis. Blood pressure 141/54, Pulse 66, Respirations 18. Chest xray 05/26/22 reported No acute abnormality of the chest. Patient is on bactrim, Pepcid and S/C Heparin. Recommend albuterol aerosol treatments prn for shortness of breath or mucociliary clearence. Continue incentive spirometry. Objective Vital Signs - 12hr 05/31/22 05/31/22 05/31/22 10:00 11:10 12:00 Temperature 97.4 F L Pulse Rate 70 Pulse Rate [ 67 From Monitor] Respiratory 18 17 Rate Blood Pressure 146/50 Blood Pressure [Left] O2 Sat by Pulse 95 94 93 Oximetry 05/31/22 17:05 Temperature 98.4 F Pulse Rate 66 Pulse Rate [ From Monitor] Respiratory 18 Rate Blood Pressure Blood Pressure 141/54 [Left] O2 Sat by Pulse 96 Oximetry Constitutional: no acute distress, alert Eyes: non-icteric ENT: oropharynx moist Neck: supple, no lymphadenopathy Effort: normal Ascultation: Bilateral: diminished breath sounds Cardiovascular: regular rate and rhythm Gastrointestinal: normoactive bowel sounds, soft, non-tender Integumentary: normal Extremities: no cyanosis, no edema Neurologic: normal mental status, non-focal exam, pupils equal and round Psychiatric: mood appropriate, affect normal CBC and BMP: 05/31/22 05:56 05/31/22 05:56 ABG, PT/INR, D-dimer: PT/INR, D-dimer PT 14.8 Sec. (12.2-14.9) 05/26/22 12:51 INR 1.04 (0.87-1.13) 05/26/22 12:51 Abnormal lab findings: Abnormal Labs 05/26/22 05/26/22 05/26/22 02:15 12:51 12:51 WBC MCH 27 L RDW 17.0 H Plt Count Seg Neuts % (Manual) 91.0 H Lymphocytes % (Manual) 2.0 L Seg Neutrophils # Man 8.1 H Lymphocytes # (Manual) 0.2 L Eosinophils # (Manual) Sodium Potassium Carbon Dioxide 20 L BUN 72 H Creatinine 4.0 H Glucose POC Glucose Calcium Phosphorus 4.70 H Magnesium Ammonia Total Creatine Kinase 262 H NT-Pro-B Natriuret Pep Total Protein Albumin 2.9 L Urine WBC (Auto) 20.0 H Urine Creatinine Valproic Acid 05/26/22 05/26/22 05/26/22 12:51 12:51 12:51 WBC MCH RDW Plt Count Seg Neuts % (Manual) Lymphocytes % (Manual) Seg Neutrophils # Man Lymphocytes # (Manual) Eosinophils # (Manual) Sodium Potassium Carbon Dioxide BUN Creatinine Glucose POC Glucose Calcium Phosphorus Magnesium Ammonia 19.0 L Total Creatine Kinase NT-Pro-B Natriuret Pep 2054 H Total Protein Albumin Urine WBC (Auto) Urine Creatinine Valproic Acid 45.5 L 05/27/22 05/27/22 05/27/22 06:13 06:13 15:13 WBC MCH 27 L RDW 16.9 H Plt Count 485 H Seg Neuts % (Manual) 89.0 H Lymphocytes % (Manual) 4.0 L Seg Neutrophils # Man 9.1 H Lymphocytes # (Manual) 0.4 L Eosinophils # (Manual) Sodium 136 L Potassium Carbon Dioxide 20 L BUN 57 H Creatinine 2.2 H Glucose 208 H POC Glucose Calcium 8.0 L Phosphorus Magnesium Ammonia Total Creatine Kinase NT-Pro-B Natriuret Pep Total Protein 5.3 L D Albumin 1.9 L Urine WBC (Auto) Urine Creatinine 92.7 H Valproic Acid 05/27/22 05/27/22 05/28/22 15:14 18:31 00:19 WBC MCH RDW Plt Count Seg Neuts % (Manual) Lymphocytes % (Manual) Seg Neutrophils # Man Lymphocytes # (Manual) Eosinophils # (Manual) Sodium Potassium Carbon Dioxide BUN Creatinine Glucose POC Glucose 155 H 135 H Calcium Phosphorus Magnesium Ammonia Total Creatine Kinase NT-Pro-B Natriuret Pep Total Protein Albumin Urine WBC (Auto) 26.0 H Urine Creatinine Valproic Acid 05/28/22 05/28/22 05/28/22 03:49 03:49 11:46 WBC MCH 27 L RDW 17.3 H Plt Count Seg Neuts % (Manual) Lymphocytes % (Manual) Seg Neutrophils # Man Lymphocytes # (Manual) Eosinophils # (Manual) Sodium 134 L Potassium 3.2 L Carbon Dioxide 20 L BUN 49 H Creatinine 1.4 H Glucose 190 H POC Glucose 130 H Calcium 8.0 L Phosphorus Magnesium 2.40 H Ammonia Total Creatine Kinase NT-Pro-B Natriuret Pep Total Protein Albumin Urine WBC (Auto) Urine Creatinine Valproic Acid 05/29/22 05/29/22 05/31/22 05:10 05:10 05:56 WBC 12.7 H 12.7 H MCH 27 L 27 L RDW 17.0 H 17.1 H Plt Count Seg Neuts % (Manual) Lymphocytes % (Manual) 6.0 L Seg Neutrophils # Man 8.9 H Lymphocytes # (Manual) 0.8 L Eosinophils # (Manual) 0.5 H Sodium 136 L Potassium Carbon Dioxide 21 L BUN 36 H Creatinine Glucose 120 H POC Glucose Calcium 8.2 L Phosphorus Magnesium Ammonia Total Creatine Kinase NT-Pro-B Natriuret Pep Total Protein Albumin Urine WBC (Auto) Urine Creatinine Valproic Acid 05/31/22 05:56 WBC MCH RDW Plt Count Seg Neuts % (Manual) Lymphocytes % (Manual) Seg Neutrophils # Man Lymphocytes # (Manual) Eosinophils # (Manual) Sodium 135 L Potassium Carbon Dioxide BUN 18 H Creatinine Glucose POC Glucose Calcium 8.1 L Phosphorus Magnesium Ammonia Total Creatine Kinase NT-Pro-B Natriuret Pep Total Protein Albumin Urine WBC (Auto) Urine Creatinine Valproic Acid Chest x-ray: report reviewed, image reviewed Additional Studies: [facility] 1 VIEW 05/26/2022 11:53 AM INDICATION / CLINICAL INFORMATION: Weakness. COMPARISON: None available. FINDINGS: SUPPORT DEVICES: None. HEART / MEDIASTINUM: No significant abnormality. LUNGS / PLEURA: The lungs are clear with elevation of the right hemidiaphragm. No significant pleural effusion. No pneumothorax. ADDITIONAL FINDINGS: No significant additional findings. IMPRESSION: 1. No acute abnormality of the chest.
[2022-05-31] MEDS: D5W/0.45% NACL 1,000 ML IV SCH (22:23)
[2022-05-31] MEDS: risperiDONE 1 MG TAB PO SCH (22:28)
[2022-05-31] MEDS: FAMOTIDINE 20 MG TAB PO SCH (22:29)
[2022-05-31] MEDS: DIVALPROEX DR 250 MG TAB PO SCH (22:29)
[2022-06-01] MEDS: metroNIDAZOLE/NS 500 MG/100 ML 500 MG/100 ML BAG IV SCH (05:44)
[2022-06-01] MEDS: HEPARIN 5,000 UNIT/1 ML VIAL SUB-Q SCH ×3 (05:45→22:05)
--- NOTE | 2022-06-01 07:46 | Discharge Summary ---
Providers - Providers Date of Admission: 05/26/22 16:16 Date of discharge: 06/01/22 Attending physician: GUIDO BROWN MD 05/26/22 15:02 Consult to Physician [CONS] Stat Comment: Consulting Provider: QIAN AMANDA Physician Instructions: Reason For Exam: Acute abdominal pain with perforated viscus 05/26/22 22:24 Consult to Physician [CONS] Routine Comment: Consulting Provider: BRONSON ROSE Physician Instructions: Reason For Exam: Afib with RVR 05/27/22 08:11 Consult to Physician [CONS] Routine Comment: Consulting Provider: JOYCE SULLIVAN Physician Instructions: Reason For Exam: CCM- s/p hemicolectomy / perforated Viscous 05/27/22 14:41 Occupational Therapy Evaluate and Treat [CONS] Routine Comment: Reason For Exam: s/p Abdominal Surgery Physical Therapy Evaluation and Treat [CONS] Routine Comment: Reason For Exam: s/p Abdominal Surgery Primary care physician: JAQUAN ZARAGOZA Hospitalization Reason for admission: generalized weakness Condition: Serious Hospital course: 76 YO Female with Vascular Dementia, Cerebral Atherosclerosis, Debility, Hypothyroidism presents to ED for evaluation. Patient has diminished cognition and provides minimal history. Patient reports "I feel weak and I fell down". Patient son is at bedside and provides additional history. Patient son reports that patient has also experienced generalized weakness over the past 1 week with worsening symptoms over the past 2 days. Patient also complained of lower abdominal pain over the past 3 days. Patient was ambulating today and experienced a fall from a standing position landing against a wall and sustaining a laceration to area. EMS was notified and upon arrival the patient was found to be in distress and subsequent transported to [facility] for further care and evaluation of the aforementioned symptoms. The patient was seen and evaluated emergency department. All lab and imaging studies reviewed. Patient found to have a systolic blood pressure in the 90s. Patient found to have systemic inflammatory response syndrome, metabolic acidosis, acute kidney injury, diastolic CHF, as well as perforated viscus, colitis. Surgery team consulted in ED. Patient taken urgently to operating room for surgical intervention. No reports of fever, chills, chest pain, palpitation, productive cough, skin rash, recent contact, known exposure to COVID-19. No prior admission for review. No medication listed at time of admission for reconciliation. Advanced care planning conducted in ED. 05/27: Drowsy but AAO, on 2L NC. Off pressor this am, remains in Afib rate control. Still on Amiodarone gtt per Cardio. Exp lap sites noted with no complications. Still with hypoactive BS this am. Keep patient NPO, NGT to LIS, and continue current IV Abx per General Surgery. PT/OT consulted. 05-28 NGT clamped; transfer orders placed 05/30: D/w Dr Amanda, surgery. NGT currently clamped, can be d/c. Patient can begin trial of sips of CLD. Monitor for BM. Will resume po meds. Cardiology recommendations re: rate control meds noted. 05/31: Adv to full liquid diet. D/c lyons. D/w Dr Cintron. Plan to pull drain tomorrow AM. Anticipate d/c to [facility] tomorrow. CM notified in rounds today. 06/01: Drain out today by surgery. plan for d/c back to [facility] today. Pt advised to follow up OP with Gen surgery in clinic and primary care care physician. neuro: acute pain #Scalp Laceration #S/p Fall at home advanced care plannng neuro intact maew; follows commands pain well controlled PRN pain meds on home psych meds pt reports risperodone, depakote and clonazepam but then clonazepam listed as allergy pharm aware will need to clarify and convert to PO when taking PO pt/ot/st will be needed note pt had fall prior to admit no injuries noted or reported- imaging completed- see reports CV afib-new this admit no pressors normotensive afib - converted to SR overnight cards following add metop when able to take PO and then d/c IV amio Resp pulm insufficiency NC PRN needs aggressive pulm hygiene GI sp perf viscous and ex lap 05-26 #Perforated Abdominal Viscus #Perforated Transverse Colon Tumor #S/p Right Hemicolectomy strict NPO per Dr Amanda per nursing staff she passed liquid stool overnight pt does not report flatus - but she also did not know she had a BM inc BS today NG clamped 05/28 defer PO to GI pepcid hypok; peripheral edema; TYRESE- improving intake/output net pos 1.6L over 24 hours made 340 ml urine over 24 hours generalized edema trend and replace electrolytes IV PRN K this AM 3.9 replaced this AM remains on IVF hopefully this afternoon pt will be cleared for PO and IVF can be d/c she continues to have generalized edema and is consistently in positive fluid balance on a daily basis cr improving continue to monitor Heme-nap hgb stable no bleeding VTE ROLANDO ID- sp perf viscous cefipime and flagyl per gen surgery afebrile trend WBC covid neg 05/26 GNR noted in peritoneal fluid Endo - stress hyperglycemia; obese BG control PRN Disposition: [facility] Final Discharge Diagnosis (Prints w/discharge instructions): Perforated abdominal visucs, perforated tranverse colon tumor, right hemicolectomy, atrial fibrillation Time spent for discharge: 35 Core Measure Documentation - Palliative Care Palliative Care/ Comfort Measures: Not Applicable - Core Measures Any of the following diagnoses?: none Exam - Physical Exam Narrative exam: Physical Exam: VITAL SIGNS: Reviewed. GENERAL: The patient appears normally developed, Vital signs as documented. HEAD: No signs of head trauma. EYES: Pupils are equal. Extraocular motions intact. EARS: Hearing grossly intact. MOUTH: Oropharynx is normal. NECK: No adenopathy, no JVD. CHEST: Chest with clear breath sounds bilaterally. No wheezes, rales, or rhonchi. CARDIAC: Regular rate and rhythm. S1 and S2, without murmurs, gallops, or rubs. VASCULAR: No Edema. Peripheral pulses normal and equal in all extremities. ABDOMEN: Soft, non tender and non distended. No rebound or guarding, and no masses palpated. Bowel Sounds normal. MUSCULOSKELETAL: Good range of motion of all major joints. Extremities without clubbing, cyanosis or edema. NEUROLOGIC EXAM: Alert and oriented x 4. no focal sensory or strength deficits. PSYCHIATRIC: Mood normal. SKIN: detail exam as documented in skin assessment - Constitutional Vitals: Temp Pulse Resp BP Pulse Ox 97.3 F L 69 18 138/63 95 06/01/22 04:47 06/01/22 07:30 06/01/22 07:30 06/01/22 07:30 06/01/22 07:30 Plan Follow up with: JAQUAN ZARAGOZA MD [Primary Care Provider] - 3-5 Days Prescriptions: Sulfamethoxazole/Trimethoprim [Bactrim DS TAB] 1 each PO BID 5 Days #10 tab Metoprolol [Lopressor TAB] 12.5 mg PO BID 30 Days #60 tablet
[2022-06-01] MEDS: SULFAMETHOXAZOLE/TRIMETHOPRIM 800/160MG DS TAB PO SCH ×2 (09:39→22:05)
[2022-06-01] MEDS: METOPROLOL TARTRATE 25 MG TAB PO SCH ×2 (09:39→22:02)
[2022-06-01] MEDS: LEVOTHYROXINE 88 MCG TAB PO SCH (09:39)
[2022-06-01] MEDS: FAMOTIDINE 20 MG TAB PO SCH ×2 (09:40→22:01)
--- NOTE | 2022-06-01 11:12 | Progress Note ---
Assessment and Plan Patient is a 76-year-old female with vascular dementia with complaint of 1 week having abdominal pain with some loose stools. But still eating. Came to the hospital after a fall. An dfound to have perforated abdominal viscus. Patient was taken to surgery and postoperatively went to A. fib. Afib w/ RVR-currently sinus rhythm TYRESE Hypotension Perforated abdominal viscus-surgery following Scalp laceration Echo 05/26/2022-EF 50 to 55%. Right ventricle is mildly dilated. Right ventricle is mildly hypokinetic. Left atrium is normal in size. Trace aortic regurgitation. Trace mitral regurgitation. Trace tricuspid regurgitation. Trace pulmonic regurgitation Plan: Telemetry reviewed patient remains in sinus rhythm 60s-70s Continue metoprolol 12.5 mg p.o. twice daily with sips of water. [id number] score is 2, patient's A. fib lasted less than 48 hours following surgery, and has normal left atrium. No indication at this time for anticoagulation Cardiac status appears otherwise stable. Will see as needed Patient may follow up with Dr. Youngblood, [facility], upon discharge. Patient seen in conjunction with Dr. Youngblood who agrees with this plan of care - Patient Problems (1) TYRESE (acute kidney injury) Current Visit: Yes Status: Acute (2) Atrial fibrillation Current Visit: Yes Status: Acute Qualifiers: Atrial fibrillation type: unspecified Qualified Code(s): I48.91 - Unspecified atrial fibrillation (3) Hypotension Current Visit: Yes Status: Acute (4) Perforated abdominal viscus Current Visit: Yes Status: Acute (5) Scalp laceration Current Visit: Yes Status: Acute Qualifiers: Encounter type: initial encounter Qualified Code(s): S01.01XA - Laceration without foreign body of scalp, initial encounter Subjective Date of service: 06/01/22 Principal diagnosis: A. fib, perforated abdominal viscus Interval history: Patient resting in bed in no acute distress. Sinus 60s-70s on monitor with no event Objective Vital Signs Temp Pulse Pulse Resp BP Pulse Ox 06/01/22 07:30 69 18 138/63 95 06/01/22 04:47 97.3 F L 64 18 138/50 98 06/01/22 01:57 93 05/31/22 21:02 97.6 F 70 18 132/51 95 05/31/22 20:35 70 07/14/22 17:05 98.4 F 66 18 141/54 96 05/31/22 12:00 67 17 93 - Physical Examination General: No Apparent Distress HEENT: Positive: PERRL, Mucus Membranes Moist Neck: Positive: neck supple, trachea midline Cardiac: Positive: Reg Rate and Rhythm Lungs: Positive: Normal Breath Sounds Neuro: Positive: Grossly Intact Abdomen: Positive: Soft, Active Bowel Sounds, Other (Surgical dressings) Skin: Positive: Clear Incision: Cardiac Cath Site Musculoskeletal: No Pain, Normal Range of Motion Extremities: Absent: edema - Imaging and Cardiology Echo: report reviewed - Telemetry EKG Rhythm: Sinus Rhythm - EKG Sinus rhythms and dysrhythmias: sinus rhythm
--- NOTE | 2022-06-01 13:27 | Progress Note ---
Assessment and Plan 76 YO Female with Vascular Dementia, Cerebral Atherosclerosis, Debility, Hypothyroidism presented to ED for evaluation. Patient has diminished cognition and provides minimal history. Patient reported "I feel weak and I fell down". Patient son is at bedside and provides additional history. Patient son reported that patient has also experienced generalized weakness over the past 1 week with worsening symptoms over the past 2 days. Patient also complained of lower abdominal pain over the past 3 days. Patient was ambulating today and experienced a fall from a standing position landing against a wall and sustaining a laceration to area. EMS was notified and upon arrival the patient was found to be in distress and subsequent transported to [facility] for further care and evaluation of the aforementioned symptoms. Patient found to have a systolic blood pressure in the 90s. Patient found to have systemic inflammatory response syndrome, metabolic acidosis, acute kidney injury, diastolic CHF, as well as perforated viscus, colitis. Surgery team consulted in ED. Patient taken urgently to operating room for surgical intervention. No reports of fever, chills, chest pain, palpitation, productive cough, skin rash, recent contact, known exposure to COVID-19. No history of smoking, alcohol or drug abuse. Retired . Worked in [employer]/ and has two children. Allergic to Carbazepine, Clonazepam, Codeine and Jenkins. 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 Patient is afebrile and stable. waiting on CEA level and final path results. Patient advanced to full liquid diet. Recommended ambulation and physical therapy. Patient was seen in telemetry. Patient alert, awake. Resting on room air. O2 saturation 95%. No acute respiratory distress at rest. Patient complaining of cough productive of clear sputum. Patient afebrile. Has no leukocytosis. Blood pressure 138/63, Pulse 69, Respirations 18. Chest xray 05/26/22 reported No acute abnormality of the chest. Patient is on bactrim, Pepcid and S/C Heparin. Recommend albuterol aerosol treatments prn for shortness of breath or mucociliary clearence. Continue incentive spirometry. Son present at bedside at time of visit. - Patient Problems (1) Abdominal pain Current Visit: Yes Status: Acute Plan to address problem: S/P exploratory laporotomy and Bowel resection for perforation and tumor. (2) CHF (congestive heart failure) Current Visit: Yes Status: Acute Qualifiers: Heart failure type: diastolic Heart failure chronicity: acute Qualified Code(s): I50.31 - Acute diastolic (congestive) heart failure Plan to address problem: Management as per primary care and cardiology. (3) Closed head injury Current Visit: Yes Status: Acute Plan to address problem: Management as per primary care, neurology and neurosurgery. (4) Hypotension Current Visit: Yes Status: Acute Plan to address problem: Patients blood pressure improved. Todays blood pressure 138/63. (5) Scalp laceration Current Visit: Yes Status: Acute Qualifiers: Encounter type: initial encounter Qualified Code(s): S01.01XA - Laceration without foreign body of scalp, initial encounter Plan to address problem: Primary care and neurosurgeon. Subjective Date of service: 06/01/22 Principal diagnosis: A. fib, perforated abdominal viscus Interval history: 76 YO Female with Vascular Dementia, Cerebral Atherosclerosis, Debility, Hypothyroidism presented to ED for evaluation. Patient has diminished cognition and provides minimal history. Patient reported "I feel weak and I fell down". Patient son is at bedside and provides additional history. Patient son reported that patient has also experienced generalized weakness over the past 1 week with worsening symptoms over the past 2 days. Patient also complained of lower abdominal pain over the past 3 days. Patient was ambulating today and experienced a fall from a standing position landing against a wall and sustaining a laceration to area. EMS was notified and upon arrival the patient was found to be in distress and subsequent transported to [facility] for further care and evaluation of the aforementioned symptoms. Patient found to have a systolic blood pressure in the 90s. Patient found to have systemic inflammatory response syndrome, metabolic acidosis, acute kidney injury, diastolic CHF, as well as perforated viscus, colitis. Surgery team consulted in ED. Patient taken urgently to operating room for surgical intervention. No reports of fever, chills, chest pain, palpitation, productive cough, skin rash, recent contact, known exposure to COVID-19. No history of smoking, alcohol or drug abuse. Retired . Worked in [employer] system/ and has two children. Allergic to Carbazepine, Clonazepam, Codeine and Jenkins. 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 Patient is afebrile and stable. waiting on CEA level and final path results. Patient advanced to full liquid diet. Recommended ambulation and physical therapy. Patient was seen in telemetry. Patient alert, awake. Resting on room air. O2 saturation 95%. No acute respiratory distress at rest. Patient complaining of cough productive of clear sputum. Patient afebrile. Has no leukocytosis. Blood pressure 138/63, Pulse 69, Respirations 18. Chest xray 05/26/22 reported No acute abnormality of the chest. Patient is on bactrim, Pepcid and S/C Heparin. Recommend albuterol aerosol treatments prn for shortness of breath or mucociliary clearence. Continue incentive spirometry. Son present at bedside at time of visit. Objective Vital Signs - 12hr 06/01/22 06/01/22 06/01/22 01:57 04:47 07:30 Temperature 97.3 F L Pulse Rate 64 69 Respiratory 18 18 Rate Blood Pressure 138/50 138/63 [Left] O2 Sat by Pulse 93 98 95 Oximetry Constitutional: no acute distress, alert Eyes: non-icteric ENT: oropharynx moist Neck: supple, no lymphadenopathy Effort: normal Ascultation: Bilateral: diminished breath sounds Cardiovascular: regular rate and rhythm Gastrointestinal: normoactive bowel sounds, soft, non-tender Integumentary: normal Extremities: no cyanosis, no edema Neurologic: normal mental status, non-focal exam, pupils equal and round Psychiatric: mood appropriate, affect normal CBC and BMP: 05/31/22 05:56 05/31/22 05:56 ABG, PT/INR, D-dimer: PT/INR, D-dimer PT 14.8 Sec. (12.2-14.9) 05/26/22 12:51 INR 1.04 (0.87-1.13) 05/26/22 12:51 Abnormal lab findings: Abnormal Labs 05/26/22 05/26/22 05/26/22 02:15 12:51 12:51 WBC MCH 27 L RDW 17.0 H Plt Count Seg Neuts % (Manual) 91.0 H Lymphocytes % (Manual) 2.0 L Seg Neutrophils # Man 8.1 H Lymphocytes # (Manual) 0.2 L Eosinophils # (Manual) Sodium Potassium Carbon Dioxide 20 L BUN 72 H Creatinine 4.0 H Glucose POC Glucose Calcium Phosphorus 4.70 H Magnesium Ammonia Total Creatine Kinase 262 H NT-Pro-B Natriuret Pep Total Protein Albumin 2.9 L Urine WBC (Auto) 20.0 H Urine Creatinine Valproic Acid 05/26/22 05/26/22 05/26/22 12:51 12:51 12:51 WBC MCH RDW Plt Count Seg Neuts % (Manual) Lymphocytes % (Manual) Seg Neutrophils # Man Lymphocytes # (Manual) Eosinophils # (Manual) Sodium Potassium Carbon Dioxide BUN Creatinine Glucose POC Glucose Calcium Phosphorus Magnesium Ammonia 19.0 L Total Creatine Kinase NT-Pro-B Natriuret Pep 2054 H Total Protein Albumin Urine WBC (Auto) Urine Creatinine Valproic Acid 45.5 L 05/27/22 05/27/22 05/27/22 06:13 06:13 15:13 WBC MCH 27 L RDW 16.9 H Plt Count 485 H Seg Neuts % (Manual) 89.0 H Lymphocytes % (Manual) 4.0 L Seg Neutrophils # Man 9.1 H Lymphocytes # (Manual) 0.4 L Eosinophils # (Manual) Sodium 136 L Potassium Carbon Dioxide 20 L BUN 57 H Creatinine 2.2 H Glucose 208 H POC Glucose Calcium 8.0 L Phosphorus Magnesium Ammonia Total Creatine Kinase NT-Pro-B Natriuret Pep Total Protein 5.3 L D Albumin 1.9 L Urine WBC (Auto) Urine Creatinine 92.7 H Valproic Acid 05/27/22 05/27/22 05/28/22 15:14 18:31 00:19 WBC MCH RDW Plt Count Seg Neuts % (Manual) Lymphocytes % (Manual) Seg Neutrophils # Man Lymphocytes # (Manual) Eosinophils # (Manual) Sodium Potassium Carbon Dioxide BUN Creatinine Glucose POC Glucose 155 H 135 H Calcium Phosphorus Magnesium Ammonia Total Creatine Kinase NT-Pro-B Natriuret Pep Total Protein Albumin Urine WBC (Auto) 26.0 H Urine Creatinine Valproic Acid 05/28/22 05/28/22 05/28/22 03:49 03:49 11:46 WBC MCH 27 L RDW 17.3 H Plt Count Seg Neuts % (Manual) Lymphocytes % (Manual) Seg Neutrophils # Man Lymphocytes # (Manual) Eosinophils # (Manual) Sodium 134 L Potassium 3.2 L Carbon Dioxide 20 L BUN 49 H Creatinine 1.4 H Glucose 190 H POC Glucose 130 H Calcium 8.0 L Phosphorus Magnesium 2.40 H Ammonia Total Creatine Kinase NT-Pro-B Natriuret Pep Total Protein Albumin Urine WBC (Auto) Urine Creatinine Valproic Acid 05/29/22 05/29/22 05/31/22 05:10 05:10 05:56 WBC 12.7 H 12.7 H MCH 27 L 27 L RDW 17.0 H 17.1 H Plt Count Seg Neuts % (Manual) Lymphocytes % (Manual) 6.0 L Seg Neutrophils # Man 8.9 H Lymphocytes # (Manual) 0.8 L Eosinophils # (Manual) 0.5 H Sodium 136 L Potassium Carbon Dioxide 21 L BUN 36 H Creatinine Glucose 120 H POC Glucose Calcium 8.2 L Phosphorus Magnesium Ammonia Total Creatine Kinase NT-Pro-B Natriuret Pep Total Protein Albumin Urine WBC (Auto) Urine Creatinine Valproic Acid 05/31/22 05:56 WBC MCH RDW Plt Count Seg Neuts % (Manual) Lymphocytes % (Manual) Seg Neutrophils # Man Lymphocytes # (Manual) Eosinophils # (Manual) Sodium 135 L Potassium Carbon Dioxide BUN 18 H Creatinine Glucose POC Glucose Calcium 8.1 L Phosphorus Magnesium Ammonia Total Creatine Kinase NT-Pro-B Natriuret Pep Total Protein Albumin Urine WBC (Auto) Urine Creatinine Valproic Acid
--- NOTE | 2022-06-01 16:31 | Progress Note ---
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 Patient is afebrile and stable. waiting on CEA level and final path results. will advance to full liquids. Encourage ambulation and physical therapy. Pt being discharged today. Can follow up in the office in two weeks. Need to call [phone] for an appointment. Will remove in shawn then. Advance diet as tolerated. Subjective Date of service: 06/01/22 Narrative: no acute events overnight. Pt tolerating full liquids. Pain is controlled and continues to pass flatus. Objective Vital Signs - 12hr 06/01/22 06/01/22 04:47 07:30 Temperature 97.3 F L Pulse Rate 64 69 Respiratory 18 18 Rate Blood Pressure 138/50 138/63 [Left] O2 Sat by Pulse 98 95 Oximetry - General physical appearance well developed, no distress - Eyes PERRL - ENT no hearing loss - Respiratory normal expansion, normal respiratory effort - Abdomen soft, not tender, other ( incisions c/d/i, appropriately tender to palpation) - Labs 05/31/22 05:56 05/31/22 05:56
[2022-06-01 21:11] VITALS: BP 117/52
[2022-06-01] MEDS: risperiDONE 1 MG TAB PO SCH (22:01)
[2022-06-01] MEDS: DIVALPROEX DR 250 MG TAB PO SCH (22:01)
== END 2022-06-01 22:30 | DRG 329 ==
LOC: ED 10:26 → IMCU 16:16 → CC1 22:26 → 4A 05-30 06:20
PROVIDERS: ADMIT Internal Medicine; ATTEND Internal Medicine
PROC: 0DTF0ZZ Resection of Right Large Intestine, Open Approach (ICD-10-PCS; principal; 2022-05-26)
PROC: 0HQ0XZZ Repair Scalp Skin, External Approach (ICD-10-PCS; 2022-05-26)
PROC: 0DJ60ZZ Inspection of Stomach, Open Approach (ICD-10-PCS; 2022-05-26)
DX: K63.1 Perforation of intestine (nontraumatic) (principal); I50.31 Acute diastolic (congestive) heart failure; N17.0 Acute kidney failure with tubular necrosis; R65.10 Systemic inflammatory response syndrome (SIRS) of non-infectious origin without acute organ dysfunction; E87.6 Hypokalemia; S01.01XA Laceration without foreign body of scalp, initial encounter; I48.91 Unspecified atrial fibrillation; Z20.822 Contact with and (suspected) exposure to COVID-19; E03.9 Hypothyroidism, unspecified; W18.39XA Other fall on same level, initial encounter; Y93.89 Activity, other specified; Y92.89 Other specified places as the place of occurrence of the external cause; Y99.8 Other external cause status; K52.9 Noninfective gastroenteritis and colitis, unspecified; F32.9 Major depressive disorder, single episode, unspecified; F20.9 Schizophrenia, unspecified; Z88.8 Allergy status to other drugs, medicaments and biological substances; Z88.6 Allergy status to analgesic agent
CPT/HCPCS: 36415; 70450; 71045; 72125; 74176; 80048; 80053; 80164; 81001; 82140; 82271; 82378; 82550; 82570; 82962; 83735; 83880; 84100; 84300; 84443; 84484; 85007; 85025; 85027; 85610; 86850; 86900; 86901; 87040; 87076; 87086; 87116; 87186; 88307; 88341; 88342; 90715; 93005; 93306; 94760; G0378; J1815; J3490; J7060; J7070; J7517; C8929; J0131; J0282; J0692; J1100; J1170; J1644; J2270; J2370; J2405; J2704; J2710; J3475; J3480; J7120; U0003